=== PATIENT | female | born 1970 ===

== ENCOUNTER 2020-11-12 08:11 | Emergency (ER) | payer OTHER, SELFPAY ==
[2020-11-12 10:02] VITALS: BP 103/66; PULSE 72; RESP 14; TEMP 36.8; O2SAT 99; BMI 40.7
--- NOTE | 2020-11-12 10:39 | ED.GENADULT ---
HPI - General Adult General Chief complaint: Skin/Abscess/Foreign Body Stated complaint: cyst Time Seen by Provider: 11/12/20 10:11 Source: patient Mode of arrival: ambulatory Limitations: no limitations History of Present Illness HPI narrative: Vaginal lump x2 weeks, draining at home but increase in swelling. No fevers or chills. Related Data Previous Rx's Medication Instructions Recorded doxycycline monohydrate 100 mg PO BID #14 cap 11/12/20 Allergies Allergy/AdvReac Type Severity Reaction Status Date / Time oxycodone [From PERCOCET] Allergy Unknown NAUSEA, Unverified 05/22/20 15:28 DIZZINESS acetaminophen [Percocet] AdvReac Unknown agitation, Verified 12/06/17 00:00 hallucinations Review of Systems Review of Systems: Yes all other systems are reviewed and are negative Constitutional: Constitutional: Reports no additional constitutional complaints, Denies body ache(s), Denies chills, Denies fever(s), Denies headache(s) and Denies weakness Eyes: Eyes: Reports no additional eye complaints and Denies change in vision ENT: Reports system reviewed and no additional complaints, except as documented, Denies dizziness, Denies headache(s), Denies nasal congestion, Denies nasal discharge and Denies neck pain Cardiovascular: Cardiovascular: Reports no additional cardiovascular complaints, Denies chest pain, Denies leg edema and Denies dyspnea Respiratory: Respiratory: Reports no additional respiratory complaints, Denies cough and Denies dyspnea Gastrointestinal: Gastrointestinal: Reports no additional gastrointestinal complaints, Denies abdominal pain, Denies diarrhea, Denies nausea and Denies vomiting Genitourinary: Genitourinary: Reports no additional female genitourinary complaints and Denies urinary incontinence Musculoskeletal: Musculoskeletal: Reports no additional musculoskeletal complaints, Denies back pain, Denies arthralgias, Denies joint swelling, Denies neck pain, Denies numbness and Denies tingling Integumentary/Breasts: Skin/Breast: Reports system reviewed and no additional complaints, except as docu, Reports swelling, Reports erythema and Denies rash Neurologic: Reports system reviewed and no additional complaints, except as documented, Denies Abnormal speech present, Denies dizziness, Denies headache(s), Denies numbness, Denies tingling and Denies weakness PMF Past Medical History Attestation statement: The following information was validated with the patient. Source: old records reviewed and nursing notes reviewed Medical History COPD (chronic obstructive pulmonary disease) Surgical History Previous section Social History Social History Advance Directives: Yes Advance Directives Information Provided: Yes Advance Directives on File: No Physical Exam Vital Signs: Vital Signs: Last Vital Signs Temp 98.2 F 11/12/20 10:02 Pulse 72 11/12/20 10:02 Resp 14 11/12/20 10:02 BP 103/66 11/12/20 10:02 Pulse Ox 99 11/12/20 10:02 Body Mass Index 40.7 Const: General: cooperative, healthy appearing, comfortable and no acute distress Orientation/consciousness: patient oriented x3 Limitations: no limitations HENMT: Head: Yes normal to inspection Ears: hearing grossly normal bilaterally General nose exam: Normal external nose present Face and sinus: Yes normal facial exam Mouth: Normal oral and palatal mucosa present Throat: Yes posterior oropharynx normal Eyes: General: appearance normal, both eyes and all related structures Pupils: Equal, round and reactive pupils present Neck: Neck: Yes normal visual inspection Chest: Chest palpation & inspection: normal inspection of the chest Resp: Effort & Inspection: normal respiratory effort Auscultation: clear to auscultation bilaterally Cardio: Rate: regular rate Rhythm: regular rhythm Peripheral pulses: Peripheral pulses 2+ throughout GI: Inspection: Yes normal to inspection Palpation (GI): Soft to palpation and nontender Auscultation: normal bowel sounds : Other: To the left labia majora there is a moderate-sized abscess with erythema and induration. Back/Spine/Pelvis: Thoracic/Lumbar Spine: thoracic and lumbar spine normal to inspection Skin: General skin exam: no rashes or lesions noted Neuro: General: patient oriented x3, no focal motor deficits and normal sensation to monofilament Cranial nerves: Yes Equal, round and reactive pupils present Cognition (Neuro): normal cognition Speech: No Abnormal speech present Gait exam (Neuro): Normal gait present Motor exam (neuro): 5/5 motor strength present throughout Extrem: General: Yes normal to inspection Course Course Course Narrative: I and D done of left labial abscess. Mostly sanguinous drainage. Dressing placed. Will start patient on oral antibiotics. Reviewed worrisome signs and symptoms of when to return to the emergency department. Comfortable discharge home. Procedures Abscess I/D Site: other (Left labial) Side (if applicable): left Local Anesthetic: lidocaine 2% Technique: incised with blade Amount of fluid expressed (mL): 5 Discharge Plan Discharge Clinical Impression: Abscess of skin or subcutaneous tissue Patient Disposition: Home, Self-Care Instructions: Abscess (ED) Additional Instructions: Return for increasing redness, fever >100.4 Prescriptions: New doxycycline monohydrate 100 mg capsule 100 mg PO BID Qty: 14 RF: 0 Referrals: Bailey Harrington MD [Primary Care Provider] - 2 days Stand Alone Forms: Work/School Release Interventions: ED Discharge Assessment Last Done: 11/12/20 11:18 Discharge Date/Time: 11/12/20 11:19
[2020-11-12] MEDS: Lidocaine HCl 2 % MPF 5 ML VIAL SUBCUT (11:19)
== END 2020-11-12 11:19 | disposition home or self-care (01) ==
LOC: HO.ED 10:40
PROVIDERS: Emergency Provider Emergency Medicine Emergency Medical Services; PCP Internal Medicine
DX: N76.4 Abscess of vulva (principal)
CPT/HCPCS: 56405; 99283; 99284

== ENCOUNTER 2021-01-12 06:46 | Emergency (ER) | payer OTHER, SELFPAY ==
--- NOTE | ~2021-01-12 | XR_ITS ---
EXAMINATION: XR KNEE, RIGHT CLINICAL INFORMATION: Pain COMPARISON: None TECHNIQUE: Four views of the right knee. FINDINGS: Bones and soft tissues are normal. No fracture or joint effusion. Alignment is anatomic. Joint spaces are well maintained. No abnormal soft tissue calcification. XR/XR knee RT 4V IMPRESSION: Unremarkable right knee
--- NOTE | 2021-01-12 08:06 | ED.EXTPRO ---
HPI - Extremity Problem General Chief complaint: Extremity Injury, Lower Stated complaint: rt knee pain Time Seen by Provider: 01/12/21 07:11 Source: patient Mode of arrival: ambulatory Limitations: no limitations History of Present Illness MD Complaint: other (R knee injury felt it buckle and pop walking down the stairs) Onset (ago): minute(s) Pain Consistency: constant Location: right, lower extremity and knee Quality: aching and dull Radiation: none Relieving factors: nothing Exacerbating factors: range of motion and weight bearing Associated symptoms: denies other symptoms Related Data Previous Rx's Medication Instructions Recorded doxycycline monohydrate 100 mg PO BID #14 cap 11/12/20 cyclobenzaprine 10 mg PO TID PRN #14 tab 01/12/21 hydrocodone-acetaminophen 1 tab PO Q6H PRN #12 tab 01/12/21 ibuprofen 600 mg PO Q6H PRN #30 tab 01/12/21 ondansetron 4 mg PO Q8H PRN #20 tab 01/12/21 Allergies Allergy/AdvReac Type Severity Reaction Status Date / Time oxycodone [From PERCOCET] Allergy Unknown NAUSEA, Unverified 05/22/20 15:28 DIZZINESS acetaminophen [Percocet] AdvReac Unknown agitation, Verified 12/06/17 00:00 hallucinations Review of Systems Review of Systems: Constitutional : No Fever, No Chills ENT/Mouth : No Ear Pain, No Hoarseness, No sore throat Eyes: No Eye Pain, No Swelling, No Redness, No Foreign Body Cardiovascular : No Chest Pain, No SOB Respiratory : No Cough, No Dyspnea Gastrointestinal : No Nausea, No Vomiting, No Diarrhea, No abdominal Pain Genitourinary : No Dysuria, No Hematuria Musculoskeletal : positive joint pain, No Myalgias, No Joint Swelling Skin : No Skin lacerations, No rash Neuro : No Weakness, No Numbness, No Loss of Consciousness, No Dizziness, No Headache PMFSH Past Medical History Attestation statement: The following information was validated with the patient. Medical History COPD (chronic obstructive pulmonary disease) Surgical History Previous section Social History Social History (Updated 01/12/21 @ 08:21 by Chapis Kirk DO) Alcohol intake: never Smoking Status: Current every day smoker Use of substances other than those prescribed or required for medical reasons: No Advance Directives: No Advance Directives Information Provided: No Patient : No Physical Exam Vital Signs: Vital Signs: Last Vital Signs Temp 98.6 F 01/12/21 08:07 Pulse 77 01/12/21 08:07 Resp 16 01/12/21 08:07 BP 102/52 L 01/12/21 08:07 Pulse Ox 99 01/12/21 08:07 Body Mass Index 39.4 Appearance: Alert. Oriented X3. No acute distress. Eyes: Pupils equal, round and reactive to light. ENT: Pharynx normal. Neck: Normal inspection. Neck supple. CVS: Normal heart rate and rhythm. Pulses normal. Respiratory: No respiratory distress. Breath sounds normal. Abdomen: Soft and nontender. Skin: Skin warm and dry. Normal skin color. Normal skin turgor. Extremities: No lower extremity edema. No calf ttp R knee ttp small joint effusion on lateral joint line, will not allow range of motion testing, distal NV intact, no hip or ankle pain Neuro: Oriented X 3. No motor deficit. No sensory deficit. Procedures Orthopedic Splinting/Casting Injury #1: Side: right Lower Extremity Injury Location: knee Lower Extremity Immobilizer: knee immobilizer Other Orthopedic Equipment: crutches MDM - Extremity (Nontraumatic) MDM Narrative Medical decision making narrative: 50 yo female with COPD comes in with c/o R knee pain after it buckling - NV intact, felt it pop likely internal injury, xrays negative, place in immobilizer and refer to PCP. Discharge Plan Discharge Clinical Impression: Knee sprain Qualifiers: Encounter type: initial encounter Involved ligament of knee: unspecified ligament Laterality: right Qualified Code(s): S83.91XA - Sprain of unspecified site of right knee, initial encounter Patient Disposition: Home, Self-Care Instructions: Knee Sprain (ED), Knee Immobilizer (ED) Additional Instructions: return to ED for any worsening symptoms or concerns wear immoblizer until released Prescriptions: New cyclobenzaprine 10 mg tablet 10 mg PO TID PRN (Reason: muscle spasm) Qty: 14 RF: 0 hydrocodone-acetaminophen 5-325 mg tablet 1 tab PO Q6H PRN (Reason: pain) Qty: 12 RF: 0 ibuprofen 600 mg tablet 600 mg PO Q6H PRN (Reason: pain) Qty: 30 RF: 0 ondansetron 4 mg tablet,disintegrating 4 mg PO Q8H PRN (Reason: nausea and vomiting) Qty: 20 RF: 0 No Action doxycycline monohydrate 100 mg capsule 100 mg PO BID Qty: 14 RF: 0 Referrals: aBiley Harrington MD [Primary Care Provider] - 2 days (PCP call for outpatient MRI and PT) Stand Alone Forms: Work/School Release
[2021-01-12 08:07] VITALS: BP 102/52; PULSE 77; RESP 16; TEMP 37; O2SAT 99; BMI 39.4
--- NOTE | 2021-01-12 08:32 | PC.NURSE ---
immobilizer and crutches fit and applied. pt educated on both. teach back shown by pt.
[2021-01-12] MEDS: Ibuprofen 600 MG TABLET PO (08:39)
[2021-01-12] MEDS: Cyclobenzaprine HCl 10 MG TABLET PO (08:39)
--- NOTE | 2021-01-12 08:40 | PC.NURSE ---
pt medicated per emar- awaiting dc
== END 2021-01-12 08:47 | disposition home or self-care (01) ==
PROVIDERS: Emergency Provider Emergency Medicine; PCP Internal Medicine
DX: S83.91XA Sprain of unspecified site of right knee, initial encounter (principal); M25.561 Pain in right knee; X50.1XXA Overexertion from prolonged static or awkward postures, initial encounter; Y93.9 Activity, unspecified; Y92.009 Unspecified place in unspecified non-institutional (private) residence as the place of occurrence of the external cause; Y99.9 Unspecified external cause status; F17.200 Nicotine dependence, unspecified, uncomplicated; Z71.6 Tobacco abuse counseling; Z79.899 Other long term (current) drug therapy
CPT/HCPCS: 29505; 73564; 99284

== ENCOUNTER 2021-01-23 19:31 | Outpatient (REF) | payer OTHER, SELFPAY ==
--- NOTE | ~2021-01-23 | MR_ITS ---
EXAMINATION: MR KNEE WITHOUT CONTRAST, RIGHT CLINICAL INFORMATION: Pain and shakiness of the right leg and knee. COMPARISON: None TECHNIQUE: MRI of the knee without contrast was performed using routine sequences on a high-field scanner. FINDINGS: MENISCI: Medial Meniscus: The posterior horn is avulsed at the root insertion with an associated gap of 7 mm. There is a small flap component along the free edge which extends anteriorly by 7 mm. There is a small horizontal undersurface component of the tear at the junction of the posterior horn and body. Degenerative intrasubstance signal is present within the medial meniscus. Lateral Meniscus: Degenerative intrasubstance signal is present in the anterior and posterior root insertions. No discrete tears. LIGAMENTS: Cruciate: Intact. Collateral: Edema signal around the MCL is likely reactive to the underlying meniscal abnormality. Collateral ligaments are intact. EXTENSOR MECHANISM: Intact. ARTICULAR CARTILAGE/BONE: Patellofemoral Compartment: There is moderate nonuniform articular cartilage loss at the patella with full-thickness chondral fissuring, subchondral edema, subchondral cystic change, and marginal osteophytes. There is moderate nonuniform articular cartilage loss at the medial trochlear facet over an area measuring 1.5 x 1.4 cm with full-thickness chondral fissuring, cortical irregularity, and subcortical cystic change. Medial Compartment: Small marginal osteophytes are present at the medial compartment. Chondral fissuring and partial-thickness cartilage loss are present at the far lateral margin of the medial femoral condyle weightbearing surface. Lateral Compartment: There is mild chondral thinning and surface irregularity at the medial aspect of the lateral weightbearing surfaces. Small marginal osteophytes. JOINT FLUID AND BURSAE: Moderate-sized joint effusion. Small Shelton's cyst. MR/MR knee RT wo con IMPRESSION: 1. Posterior root avulsion of the medial meniscus with partial extrusion of the meniscal body. Small horizontal undersurface tear at the junction of the posterior horn and body. No subchondral insufficiency fractures. 2. Gxyr-[id number] patellofemoral compartment osteoarthritis. More mild osteoarthritis in the medial and lateral compartments. 3. Moderate-sized joint effusion and small Shelton's cyst. 4. Degenerative intrasubstance signal in the lateral meniscus without a discrete tear.
== END 2021-01-23 19:32 | disposition home or self-care (01) ==
LOC: HO.MRI 19:31
PROVIDERS: Visit Provider Internal Medicine
DX: S83.206A Unspecified tear of unspecified meniscus, current injury, right knee, initial encounter (principal)
CPT/HCPCS: 73721

== ENCOUNTER → 2021-02-04 13:39 | Outpatient (BNVA) | payer OTHER, SELFPAY | PROVIDERS: PCP Internal Medicine; Visit Provider Physician Assistant | DX: M23.309 Other meniscus derangements, unspecified meniscus, unspecified knee (principal); M17.11 Unilateral primary osteoarthritis, right knee | CPT/HCPCS: 99202 ==

== ENCOUNTER 2022-02-16 10:01 | Emergency (ER) | payer OTHER, SELFPAY ==
[2022-02-16 10:18] VITALS: BP 112/80; PULSE 76; RESP 16; TEMP 37.1; O2SAT 98; BMI 42.0
--- NOTE | 2022-02-16 10:44 | ED_ITS ---
HPI - URI/Sore Throat General Chief Complaint: Upper Respiratory Symptoms Stated Complaint: sore throat , pain in ears, light fever Time Seen by Provider: 02/16/22 10:40 Source: patient Mode of arrival: ambulatory Limitations: language barrier ( Bruneian-speaking) History of Present Illness HPI Narrative: 51-year-old female with a past medical history of COPD and COVID in the past presenting to the ED with complaints of nasal congestion/ rhinorrhea with a sore throat and ear pain with intermittent headaches with subjective fevers with associated chills, myalgias and fatigue for the past 4 days worse today. R eports on Tuesday she took at home COVID testing was negative. She denies recent travel. She reports that multiple coworkers have similar symptoms at work although she is unsure if there are positive for COVID Or the flu. She reports that she is vaccinated to COVID. She denies any measured fevers, dizziness, neck pain / stiffness, trouble swallowing or breathing, chest pain or shortness of breath, loss of taste or smell, sputum production, cough, nausea/ vomiting / diarrhea constipation, abdominal pain, dysuria, abnormal vaginal discharge, rashes or any other symptoms complaints or concerns at this time. MD elicited complaint: sore throat, rhinorrhea, nasal congestion and other ( Ear pain) Onset (ago): day(s) (4) Consistency: constant and progressively worsening Severity: mild Description of mucous: clear and watery Able to tolerate fluids by mouth: Yes Exacerbating factors: swallowing Relieving factors: nothing Context: sick contacts and other(s) with similar symptoms Associated symptoms: fever, chills, myalgias, headache, rhinorrhea, nasal congestion, sore throat and ear pain Treatments prior to arrival: none Related Data Previous Rx's Medication Instructions Recorded doxycycline monohydrate 100 mg 100 mg PO BID #14 caps 11/12/20 capsule ondansetron 4 mg disintegrating 4 mg PO Q8H PRN nausea and 01/12/21 tablet vomiting #20 tabs cyclobenzaprine 10 mg tablet 10 mg PO TID PRN muscle spasm #14 01/21/21 tabs hydrocodone 5 mg-acetaminophen 325 1 tab PO Q6H PRN pain #12 tabs 01/21/21 mg tablet ibuprofen 600 mg tablet 600 mg PO Q6H PRN pain #30 tabs 01/21/21 celecoxib 200 mg capsule 200 mg PO BID 1 month #60 caps 06/02/21 Allergies Allergy/AdvReac Type Severity Reaction Status Date / Time oxycodone [From PERCOCET] Allergy Unknown NAUSEA, Verified 02/04/21 14:07 DIZZINESS acetaminophen [Percocet] AdvReac Unknown agitation, Verified 02/04/21 14:07 hallucinations Review of Systems Review of Systems: Constitutional : + subjective fevers/ chills /fatigue/malaise, No Weight loss, No Night Sweats ENT/Mouth : + sore throat/ear pain /nasal congestion/rhinorrhea, No Hearing loss, No Sinus Pain, No Hoarseness, No Swallowing Difficulty Eyes: No Eye Pain, No Swelling, No Redness, No Foreign Body, No Discharge, No Vision Changes Cardiovascular : No Chest Pain, No SOB, No Dyspnea on Exertion, No Orthopnea, No Edema, No Palpitations Respiratory : No Cough, No Sputum, No Wheezing, No Smoke Exposure, No Dyspnea Gastrointestinal : No Nausea, No Vomiting, No Diarrhea, No Constipation, No abdominal Pain, No Hematochezia, No Melena Genitourinary : no irregular bleeding, No Dysuria, No Urinary Frequency, No Hematuria, No Urinary Incontinence, No Urgency, No Flank Pain, No Urinary Flow Changes, No Hesitancy Musculoskeletal : No joint pain, No Myalgias, No Joint Swelling Skin : No Skin Lesions, No rash Neuro : No Weakness, No Numbness, No Paresthesias, No Loss of Consciousness, No Dizziness, No Headache Psych : No Anxiety/Panic, No Depression, No SI/HI/AH/VH, No Social Issues, Heme/Lymph: No Bruising, No Bleeding,No Lymphadenopathy Endocrine : No Polyuria, No Polydipsia, No Temperature Intolerance Yes all other systems are reviewed and are negative [facility] Past Medical History Attestation statement: The following information was validated with the patient. Source: old records reviewed and nursing notes reviewed Surgical History Previous section Family History Family History Mother Arteriosclerosis of bypass graft of coronary artery Alzheimer disease Father No problems noted. Social History Social History Alcohol intake: never Cigarettes Per Day: 7 Advance Directives: No Advance Directives Information Provided: Yes Advance Directives on File: No Current occupational status: employed Current occupation: right handed Physical Exam Vital Signs: Vital Signs: Last Vital Signs Temp 98.8 F 02/16/22 10:18 Pulse 76 02/16/22 10:18 Resp 16 02/16/22 10:18 BP 112/80 02/16/22 10:18 Pulse Ox 98 02/16/22 10:18 O2 Del Method 02/16/22 10:18 BMI result Body Mass Index 42.0 vital signs have been reviewed as normal and appeared to be correct. Blood pressure normal. Heart rate normal. Respiration rate normal. Temperature normal. Oxygen saturation normal. Appearance: Alert. Oriented X3. No acute distress. Head: Normal external exam. Normocephalic. Atraumatic. Eyes: PERRLA. EOMI. Conjunctiva and sclera normal. Eyelids normal. ENT: EAC normal. TM's Normal. Pharynx normal. Uvula midline. Moist mucous membranes. No lesions/ulcerations or masses noted on the tongue. Normal voice. No trismus noted. No drooling noted. No muffled voice noted. Neck: Normal inspection. Neck supple. FROM. No adenopathy. Thyroid Normal. No tracheal deviation noted. No crepitus is noted. No meningeal signs. No neck mass noted. No signs of trauma noted. CVS: Normal heart rate and rhythm. Heart sound normal. Pulses normal throughout. No murmurs/rales/gallops. Respiratory: No respiratory distress. Painless inspiration. Breath sounds normal. No wheezes/rales/rhonchi noted. Chest nontender. No crepitus is noted. No signs of trauma noted. No accessory muscle usage noted or decreased air movement noted. No signs of trauma. Abdomen: Soft and nontender. Bowel sounds normal in all 4 quadrants. No distention noted. No organomegaly noted. No visible injury noted. Back: Full range of motion noted. Skin: Skin warm and dry. Normal skin color. Normal skin turgor. No rashes/lesions/lacerations noted. Extremities: Extremities exhibit normal range of motion and nontender. Neuro: Oriented X 3. No motor deficit. No sensory deficit. Reflexes normal. Normal steady gait. No focal neuro deficits noted. CN's II-XII intact bilaterally? Vascular: + radial pulses/+ 2 distal pedal pulses/+2 dorsalis pedis b/l. Normal cap refill. No cyanosis noted to upper extremity nails and lower extremity toes nails. Course Course Course Narrative: 51-year-old female with a past medical history of COPD and COVID in the past presenting to the ED with complaints of nasal congestion/ rhinorrhea with a sore throat and ear pain with intermittent headaches with subjective fevers with associated chills, myalgias and fatigue for the past 4 days worse today. Reports on Tuesday she took at home COVID testing was negative. She denies recent travel. She reports that multiple coworkers have similar symptoms at work although she is unsure if there are positive for COVID Or the flu. patient negative for COVID/ influenza and strep. Patient most likely viral syndrome. Will DC home with symptomatic treatment instructions return if any new or worsening symptoms follow up with primary care provider. Patient understands agrees with this plan. MDM - URI/Sore Throat Medical Records Attestation: I reviewed the patient's medical records. Lab Data Attestation: I reviewed the patient's lab results. Labs: Lab Results 02/16/22 02/16/22 02/16/22 Range/Units 10:29 10:29 10:29 COVID-19 (MAGALIE) Negative (Negative) COVID-19 Clin Com See Note Influenza Type A (ALEJANDRA) Negative (Negative) Influenza Type B (ALEJANDRA) Negative (Negative) Influenza A & B Note See Note S. pyogenes GrpA ALEJANDRA Negative (Negative) Discharge Plan Discharge Clinical Impression: Viral infection Patient Disposition: Home, Self-Care Instructions: Viral Syndrome (ED) Prescriptions: No Action celecoxib 200 mg capsule 200 mg PO BID 30 Days Qty: 60 3RF doxycycline monohydrate 100 mg capsule 100 mg PO BID Qty: 14 0RF ondansetron 4 mg tablet,disintegrating 4 mg PO Q8H PRN (Reason: nausea and vomiting) Qty: 20 0RF cyclobenzaprine 10 mg tablet 10 mg PO TID PRN (Reason: muscle spasm) Qty: 14 0RF ibuprofen 600 mg tablet 600 mg PO Q6H PRN (Reason: pain) Qty: 30 0RF hydrocodone-acetaminophen 5-325 mg tablet 1 tab PO Q6H PRN (Reason: pain) Qty: 12 0RF Referrals: [place] Venancio,Jeana, MD [Primary Care Provider] - 2 days Print Language: Bruneian
[2022-02-16 10:57] LABS: Strep A Nucleic Acid Negative (Negative)
[2022-02-16 10:59] LABS: COVID-19 Test Negative (Negative); IDNOW Serial# 16C4AD1C; Influenza A Negative (Negative); Influenza B2 Negative (Negative)
== END 2022-02-16 11:06 | disposition home or self-care (01) ==
PROVIDERS: Physician Assistant Medical; Emergency Provider Emergency Medicine; PCP Internal Medicine
DX: B34.9 Viral infection, unspecified (principal); Z20.822 Contact with and (suspected) exposure to COVID-19; J02.9 Acute pharyngitis, unspecified
CPT/HCPCS: 87502; 87635; 87651; 99283

== ENCOUNTER 2022-10-19 11:04 | Outpatient (REF) | payer OTHER, SELFPAY ==
--- NOTE | ~2022-10-19 | US_ITS ---
EXAMINATION: US PELVIS CLINICAL INFORMATION: Bilateral pelvic pain for three weeks. Rule out mass/fibroids. COMPARISON: None TECHNIQUE: Ultrasound of the pelvis is performed using both transabdominal and transvaginal transducers along with Doppler. Transvaginal imaging is performed due to inadequate visualization transabdominally. FINDINGS: UTERUS: The uterus is anteverted and measures 10.9 x 4.5 x 4.9 cm. The double wall endometrial thickness is 10 mm. The uterus is smooth in contour and has normal myometrial echogenicity. No visible fibroid. Nabothian cysts are present in the cervix. ADNEXA: Both ovaries are visualized. There is normal color flow to the adnexa. There is no ovarian torsion. There is no pelvic ascites or fluid collection. Right ovary measures 1.6 x 1.1 x 1.6 cm for a volume of 1.5 mL. Left ovary measures 1.5 x 1.0 x 1.3 cm for a volume of 1.06 mL. US/US pelvic and transvaginal IMPRESSION: Negative exam.
--- NOTE | ~2022-10-19 | MM_ITS ---
EXAMINATION: MM SCREENING DIGITAL BREAST TOMOSYNTHESIS, BILATERAL CLINICAL INFORMATION: Screening. Asymptomatic. The lifetime risk of breast cancer based on the Tyrer-Cuzick Model is 7%. COMPARISON: Mammography: 06/07/2014 (baseline) TECHNIQUE: Digital breast tomosynthesis is performed in both the craniocaudal and mediolateral oblique views along with computer-aided detection (CAD). Synthesized 2D images are generated from the tomosynthesis. FINDINGS: There are scattered areas of fibroglandular density (ACR BI-RADS breast composition Category b). There are no significant masses, abnormal calcifications, or other abnormalities. No architectural abnormality or developing density or significant change from prior baseline exam. The axilla and skin contours are unremarkable. MM/MM tomosynthesis screening BI IMPRESSION: No mammographic evidence of malignancy. ASSESSMENT: BI-RADS 1: Negative RECOMMENDATION: Routine annual mammography screening. This patient's information was entered into a reminder system with a target due date for their next mammogram.
[2022-10-19 13:29] LABS: Lipase 11 U/L (8-78)
[2022-10-19 14:05] LABS: Folate 9.3 ng/mL (> or = 4.0); TSH reflex Free T4 1.81 uIU/mL (0.32-4.0); Vitamin B12 336 pg/mL (200-900)
[2022-10-19 14:07] LABS: Estimated Average Glucose 94 mg/dL; Hemoglobin A1c % 4.9 %
[2022-10-22 07:53] LABS: Transglutaminase Ab IgG <1.0 U/mL; Transglutaminase IgA <1.0 U/mL
== END 2022-10-19 11:05 | disposition home or self-care (01) ==
LOC: HO.US 11:04
PROVIDERS: Absent Provider Nurse Practitioner Family; PCP General Practice; Visit Provider General Practice
DX: Z01.818 Encounter for other preprocedural examination (principal); R10.2 Pelvic and perineal pain; K64.9 Unspecified hemorrhoids; R19.7 Diarrhea, unspecified; E11.9 Type 2 diabetes mellitus without complications; K59.04 Chronic idiopathic constipation; Z12.31 Encounter for screening mammogram for malignant neoplasm of breast
CPT/HCPCS: 36415; 76830; 76856; 77063; 77067; 82607; 82746; 83036; 83690; 84443; 86364; 99202

== ENCOUNTER → 2023-01-18 09:41 | Outpatient (BNVA) | payer OTHER, SELFPAY | PROVIDERS: PCP General Practice; Referring Provider General Practice; Visit Provider Nurse Practitioner Family | DX: K59.04 Chronic idiopathic constipation (principal); K64.9 Unspecified hemorrhoids | CPT/HCPCS: 99212 ==

== ENCOUNTER 2023-02-26 21:24 | Emergency (ER) | payer OTHER, SELFPAY ==
--- NOTE | ~2023-02-26 | CT_ITS ---
EXAMINATION: CT ABDOMEN AND PELVIS WITH CONTRAST CLINICAL INFORMATION: Left-sided abdominal pain COMPARISON: None available. TECHNIQUE: Multidetector volumetric images were obtained from the superior aspect of the liver through the pubic symphysis following administration 85 mL of Omnipaque 350 intravenous contrast. Sagittal and coronal reformatted images were obtained on the technologist's workstation. Oral contrast: No This CT examination was performed using dose optimization techniques as appropriate, variously including the following: *Automated exposure control *Adjustment of mA and/or kV according to patient size (this includes techniques or standardized protocols for targeted exams where dose is matched to indication/reason for exam; i.e. extremities or head) *Use of iterative reconstruction technique DLP: 723 mGy-cm FINDINGS: LUNG BASES: The visualized lung bases are unremarkable. LIVER, GALLBLADDER, AND BILIARY TREE: The liver is normal in size, shape, and attenuation. No focal hepatic lesion or biliary ductal dilatation is present. The gallbladder is unremarkable with no evidence of radiopaque gallstones, gallbladder wall thickening, or obvious pericholecystic inflammatory changes. PANCREAS: Unremarkable. SPLEEN: Unremarkable. ADRENAL GLANDS: Unremarkable. KIDNEYS AND URETERS: The kidneys are normal in size, shape, and attenuation. No hydronephrosis, hydroureter, or calculi seen. No perinephric stranding. BLADDER: Unremarkable. GASTROINTESTINAL TRACT: There are several dilated small bowel loops in left midabdomen without any mural thickening. There is small bowel feces sign present in some of the segments of small bowel. Mild dilatation of the proximal duodenum is noted as well. There is a mural thickening involving small bowel loops. There is a transition noted on axial image 32/3 through 45/3. The stomach is nondilated. The ileal loops appear normal caliber. There is scattered colonic diverticulosis, most prominent sigmoid region without mural thickening or fat stranding. Appendix is normal caliber. No inflammatory process seen in the peritoneum. No free fluid. ABDOMINAL WALL: Small lumbar canal hernia containing fat. LYMPH NODES: Normal. VASCULAR: Unremarkable. PELVIC VISCERA: The uterus is anteverted and unremarkable. No adnexal mass or free fluid. OSSEOUS STRUCTURES: Mild ventral spondylosis lower dorsal and upper lumbar spine. Small sclerotic lesion L5 L2 and L1 vertebra. CT/CT abdomen pelvis w IV con IMPRESSION: Multiple dilated proximal small bowel loops in left midabdomen with mural thickening suggestive of an tendinitis. Rest of the small bowel loops and stomach is unremarkable Colonic diverticulosis without diverticulitis. Fleischner guidelines were followed.
[2023-02-26 21:32] VITALS: BP 101/64; PULSE 94; RESP 18; TEMP 36.2; O2SAT 96; BMI 41.0
[2023-02-26 21:45] LABS: MANUAL DIFF FLAG NO
[2023-02-26 22:00] LABS: Basophils Absolute Auto 0.1 X10*3/uL (0.0-0.2); Basophils Percent Auto 0.7 % (0-2); Eosinophils Absolute Auto 0.2 X10*3/uL (0.0-0.4); Eosinophils Percent Auto 1.5 % (0-4); Hematocrit 44.9 % (37.0-47.0); Hemoglobin 15.3 g/dl (12.0-16.0); Imm Gran Abs Auto 0.02 X10*3/uL (0.00-0.03); Imm Gran Pct Auto 0.2 % (0.0-0.4); Lymphocytes Absolute Auto 3.3 X10*3/uL (1.2-4.9); Lymphocytes Percent Auto 33.8 % (20-40); Mean Corpuscular HGB Conc 34.1 g/dl (31.0-35.0); Mean Corpuscular Hemoglobin 29.1 pg (27.0-33.0); Mean Corpuscular Volume 85.4 fL (80.0-98.0); Mean Platelet Volume 12.5 fL (9.4-12.3); Monocytes Absolute Auto 0.5 X10*3/uL (0.1-1.2); Monocytes Percent Auto 4.8 % (2-11); Neutrophils Absolute Auto 5.8 x10*3/uL (2.0-8.3); Platelet Count 222 X10*3/uL (160-400); Red Blood Count 5.26 X10*6/uL (4.20-5.50); White Blood Count 9.8 X10*3/uL (4.8-10.8)
[2023-02-26 22:02] LABS: Alanine Aminotransferase 17 U/L (0-31); Albumin Level 3.9 g/dL (3.5-5.0); Alkaline Phosphatase 89 U/L (39-117); Anion Gap 13 (12-20); Aspartate Amino Transferase 17 U/L (5-31); Bilirubin Total 0.5 mg/dL (0.0-1.0); Blood Urea Nitrogen 11 mg/dL (9-16); Calcium 9.5 mg/dL (8.4-10.2); Carbon Dioxide 24 mmol/L (22-29); Chloride 111 mmol/L (96-108); Creatinine Clr Calc Pharmacy 81.3; Estimated Glomerular Filt Rate > 60; Glucose Random 102 mg/dL (60-115); Lipase 13 U/L (8-78); Potassium 3.8 mmol/L (3.3-5.1); Sodium 144 mmol/L (135-145); Total Protein 7.1 g/dL (6.5-8.0)
--- NOTE | 2023-02-27 00:35 | ED_ITS ---
HPI - Abdominal Pain General Chief Complaint: Abdominal Pain Stated Complaint: abd pain Time Seen by Provider: 02/26/23 23:59 Related Data Previous Rx's Medication Instructions Recorded doxycycline monohydrate 100 mg 100 mg PO BID #14 caps 11/12/20 capsule ondansetron 4 mg disintegrating 4 mg PO Q8H PRN nausea and 01/12/21 tablet vomiting #20 tabs cyclobenzaprine 10 mg tablet 10 mg PO TID PRN muscle spasm #14 01/21/21 tabs hydrocodone 5 mg-acetaminophen 325 1 tab PO Q6H PRN pain #12 tabs 01/21/21 mg tablet ibuprofen 600 mg tablet 600 mg PO Q6H PRN pain #30 tabs 01/21/21 celecoxib 200 mg capsule 200 mg PO BID 1 month #60 caps 06/02/21 docusate sodium 100 mg capsule 100 mg PO BEDTIME #90 caps 10/19/22 polyethylene glycol 3350 17 17 g PO DAILY #510 grams 10/19/22 gram/dose oral powder (Miralax) hydrocortisone 2.5 % topical cream 1 appl SD BID-QID PRN hemorrhoids 01/18/23 with perineal applicator #30 grams (Proctosol HC) linaclotide 145 mcg capsule 145 mcg PO DAILY #30 caps 01/18/23 (Linzess) ondansetron 4 mg disintegrating 4 mg PO TID PRN nausea and 02/27/23 tablet vomiting 5 days #10 tabs Allergies Allergy/AdvReac Type Severity Reaction Status Date / Time oxycodone [From PERCOCET] Allergy Unknown NAUSEA, Verified 02/26/23 21:32 DIZZINESS acetaminophen [Percocet] AdvReac Unknown agitation, Verified 02/26/23 21:32 hallucinations PMFSH Past Medical History Surgical History Previous section Family History Family History Mother Arteriosclerosis of bypass graft of coronary artery Alzheimer disease Father No problems noted. Social History Social History Alcohol intake: never Cigarettes Per Day: 7 Advance Directives: No Advance Directives Information Provided: Yes Current occupational status: employed Current occupation: right handed Physical Exam ED Vital Signs: Vital Signs - 24 hr 02/26/23 21:32 Temperature 97.1 F Pulse Rate 94 Respiratory Rate 18 Blood Pressure 101/64 Pulse Oximetry 96 Oxygen Delivery Method Room Air BMI result Body Mass Index 41.0 Medical Decision Making Medical Decision Making [facility] Narrative: Positive nausea vomiting abdominal pain. CT scan of the abdomen showed no obstruction no abscess no perforation. Consistent with having enteritis. St gatitod patient on IV fluid Zofran for nausea with good relief of symptoms. Patient's white count is normal. LFTs normal. Lipase is 13 is no evidence for pancreatic disease no evidence for biliary disease. Will discharge patient home. Zofran Differential Diagnosis Gastroenteritis, obstruction, abscess, perforation, biliary issues, kidney stone Lab Data [facility] Lab Attestation statement: I reviewed the patient's lab results. 02/26/23 21:41 02/26/23 21:41 Labs: Lab Results 02/26/23 02/26/23 Range/Units 21:41 21:41 WBC 9.8 (4.8-10.8) X10*3/uL RBC 5.26 (4.20-5.50) X10*6/uL Hgb 15.3 (12.0-16.0) g/dl Hct 44.9 (37.0-47.0) % MCV 85.4 (80.0-98.0) fL MCH 29.1 (27.0-33.0) pg MCHC 34.1 (31.0-35.0) g/dl RDW 14.0 (11.0-16.0) % Plt Count 222 (160-400) X10*3/uL MPV 12.5 H (9.4-12.3) fL Immature Gran % (Auto) 0.2 (0.0-0.4) % Neut % (Auto) 59.0 (45-73) % Lymph % (Auto) 33.8 (20-40) % [place] % (Auto) 4.8 (2-11) % Eos % (Auto) 1.5 (0-4) % Baso % (Auto) 0.7 (0-2) % Lymph # (Auto) 3.3 (1.2-4.9) X10*3/uL [place] # (Auto) 0.5 (0.1-1.2) X10*3/uL Eos # (Auto) 0.2 (0.0-0.4) X10*3/uL Baso # (Auto) 0.1 (0.0-0.2) X10*3/uL Abs Immat Gran (auto) 0.02 (0.00-0.03) X10*3/uL Absolute Neuts (auto) 5.8 (2.0-8.3) x10*3/uL Absolute Nucleated RBC 0.000 (0.0-0.012) X10*3/uL Nucleated RBC % (auto) 0.0 (0.0-0.2) /100WBC Sodium 144 (135-145) mmol/L Potassium 3.8 (3.3-5.1) mmol/L Chloride 111 H (96-108) mmol/L Carbon Dioxide 24 (22-29) mmol/L Anion Gap 13 (12-20) BUN 11 (9-16) mg/dL Creatinine 0.82 (0.5-1.4) mg/dL Estim Creat Clear Calc 81.3 Estimated GFR > 60 Random Glucose 102 (60-115) mg/dL Calcium 9.5 (8.4-10.2) mg/dL Total Bilirubin 0.5 (0.0-1.0) mg/dL AST 17 (5-31) U/L ALT 17 (0-31) U/L Alkaline Phosphatase 89 (39-117) U/L Total Protein 7.1 (6.5-8.0) g/dL Albumin 3.9 (3.5-5.0) g/dL Lipase 13 (8-78) U/L Independent Interpretation I performed an independent interpretation of an: CT Scan Interpretation: Grossly no obstruction Radiology Impression Discussion of test interpretation with radiology: I have reviewed the radiologist's reading. Independent Historian Clinical information obtained from an independent historian. History obtained from or confirmed by: Spouse Medications Administered Discontinued Medications Generic Name Dose Route Start Last Admin Trade Name Freq PRN Reason Stop Dose Admin Hydromorphone HCl 0.5 mg 02/27/23 00:35 02/27/23 00:58 Hydromorphone Hcl 0.5 Mg/0.5 Ml Syringe IVPUSH 02/27/23 00:36 0.5 mg ONCE ONE Administration Protocol Sodium Chloride 1,000 mls @ 999 mls/hr 02/27/23 00:45 02/27/23 00:58 Ns IV 02/27/23 01:45 999 mls/hr .Q1H1M MIRI Administration Ondansetron HCl 4 mg 02/27/23 00:35 02/27/23 00:59 Ondansetron Hcl 4 Mg/2 Ml Vial IVPUSH 02/27/23 00:36 4 mg ONCE ONE Administration Discharge Plan Discharge Clinical Impression: Gastroenteritis Patient Disposition: Home, Self-Care Instructions: Enteritis (ED) Prescriptions: New ondansetron 4 mg tablet,disintegrating 4 mg PO TID PRN (Reason: nausea and vomiting) 5 Days Qty: 10 0RF No Action celecoxib 200 mg capsule 200 mg PO BID 30 Days Qty: 60 3RF doxycycline monohydrate 100 mg capsule 100 mg PO BID Qty: 14 0RF ondansetron 4 mg tablet,disintegrating 4 mg PO Q8H PRN (Reason: nausea and vomiting) Qty: 20 0RF cyclobenzaprine 10 mg tablet 10 mg PO TID PRN (Reason: muscle spasm) Qty: 14 0RF ibuprofen 600 mg tablet 600 mg PO Q6H PRN (Reason: pain) Qty: 30 0RF hydrocodone-acetaminophen 5-325 mg tablet 1 tab PO Q6H PRN (Reason: pain) Qty: 12 0RF polyethylene glycol 3350 [Miralax] 17 gram/dose powder 17 g PO DAILY Qty: 510 2RF docusate sodium 100 mg capsule 100 mg PO BEDTIME Qty: 90 3RF hydrocortisone [Proctosol HC] 2.5 % cream with perineal applicator 1 appl SD BID-QID PRN (Reason: hemorrhoids) Qty: 30 2RF Linzess 145 mcg capsule 145 mcg PO DAILY Qty: 30 4RF Referrals: Jennifer Mcconnell MD [Primary Care Provider] - 03/01/23
[2023-02-27] MEDS: HYDROmorphone HCl 0.5 MG/0.5 ML SYRINGE IVPUSH (00:58)
[2023-02-27] MEDS: 0.9 % Sodium Chloride 1,000 ML 999 ML IV (00:58)
[2023-02-27] MEDS: ondansetron HCL 4 MG/2 ML VIAL IVPUSH (00:59)
== END 2023-02-27 03:45 | disposition home or self-care (01) ==
PROVIDERS: Emergency Provider Emergency Medicine Emergency Medical Services; PCP General Practice
DX: K52.9 Noninfective gastroenteritis and colitis, unspecified (principal); F17.210 Nicotine dependence, cigarettes, uncomplicated
CPT/HCPCS: 36415; 74177; 80053; 83690; 85025; 96361; 96374; 96375; 99284; J1170; J2405

== ENCOUNTER 2023-03-02 07:59 | Outpatient (AMB) | payer OTHER, SELFPAY ==
--- NOTE | 2023-03-02 08:03 | A.OFFVIS_ITS ---
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 Patient still is not able to move her bowels. Patient will be coming back to discuss colonoscopy. We will schedule procedure and have patient return to me to she is able to move her bowels Hemorrhoid Patient comes occasional to pain when constipated. With almost every bowel movement. Patient can continue using Proctosol twice a day. I will have her return in 6 weeks, sooner on as needed basis. Patient is agreeable to this plan and verbalizes understanding of instructions. She was given the opportunity to ask questions and all questions answered. ? Thank you for allowing me to participate in her care Plan Medications New linaclotide (Linzess) 145 mcg PO DAILY 30 caps 4RF K59.04 Refilled hydrocortisone 2.5% (Proctosol HC) 1 appl [place] BID-QID PRN 30 grams 2RF hemorrhoids K64.9 TODAY'S VISIT Patient is here today for follow-up and to discuss going for colonoscopy. Patient reports that she continues to have postprandial dyspepsia without dysphagia or odynophagia. Patient also reports epigastric discomfort after eating. Patient denies any nausea or vomiting. Reports that she continues to be constipated and does not empty her bowels completely. Patient denies melena, hematochezia, unintentional weight loss or ribbon like stools. Patient denies any issues with anesthesia in the past. No history of sleep apnea. Patient is not on any anticoagulation medication. No history of infectious diseases in the past or present. Patient reports occasional dyspepsia and epigastric pain also left upper quadrant pain postprandially. Discussed with patient avoiding NSAIDs like ibuprofen. She is also taking Celebrex for knee pain. CT scan results discussed with patient. [facility] Surgical History Previous section Family History Mother Arteriosclerosis of bypass graft of coronary artery Alzheimer disease Father No problems noted. Social History Alcohol intake: never Cigarettes Per Day: 7 Current occupational status: employed Current occupation: right handed Review of Systems Const Denies weight gain and Denies weight loss ENT Reports no additional complaints, Denies dysphagia and Denies odynophagia Card Reports no additional complaints Resp Reports no additional complaints GI Reports abdominal pain, Denies belching, Denies melena, Reports bloating, Denies change in bowel habits, Denies dysphagia, Denies excessive flatus, Reports dyspepsia, Reports heartburn, Denies diarrhea, Denies loose stools, Reports nausea, Denies odynophagia and Denies vomiting Musc Reports no additional complaints Neuro Reports no additional complaints Psych Reports no additional complaints Endo Reports no additional complaints Physical Exam Vital Signs: Last Vital Signs Pulse 78 03/02/23 08:06 BP 113/72 03/02/23 08:06 BMI result Body Mass Index 40.0 Const General: healthy appearing, no acute distress and well developed Nutritional Appearance: obese Orientation/consciousness: patient oriented x3 HEENT Head: Yes normal to inspection, Yes normocephalic and Yes atraumatic Face and sinus: Yes normal facial exam Mouth: Normal oral and palatal mucosa present Throat: Yes posterior oropharynx normal, Yes tonsils normal and Yes uvula midline Eyes General: appearance normal, both eyes and all related structures Neck Neck: Yes normal visual inspection, Yes full ROM and Yes trachea midline Thyroid: Thyroid normal Resp Effort & Inspection: normal respiratory effort, able to speak in complete sentences, no tracheal deviation and symmetric chest movement Auscultation: clear to auscultation bilaterally Cardio Rate: regular rate Heart sounds: S1 normal heart sound present and S2 normal heart sound present GI Inspection: Yes normal to inspection, No distended and Yes obesity Palpation (GI): Soft to palpation, not firm, nontender and No hepatosplenomegaly present Auscultation: normal bowel sounds General: Yes no CVA tenderness Back/Spine/Pelvis Back: no CVA tenderness Skin General skin exam: elasticity normal, turgor normal and dry skin Neuro General: patient oriented x3 Psych Appearance: grossly normal Mental Status: mental status grossly normal Speech and movement: Normal speech and movement present Affect: normal affect Results Reviewed Results Reviewed: ABDOMINAL CT SCAN 02/27/23 FINDINGS: LUNG BASES: The visualized lung bases are unremarkable.? LIVER, GALLBLADDER, AND BILIARY TREE: The liver is normal in size, shape, and attenuation. No focal hepatic lesion or biliary ductal dilatation is present. The gallbladder is unremarkable with no evidence of radiopaque gallstones, gallbladder wall thickening, or obvious pericholecystic inflammatory changes.? PANCREAS: Unremarkable.? SPLEEN: Unremarkable.? ADRENAL GLANDS: Unremarkable.? KIDNEYS AND URETERS: The kidneys are normal in size, shape, and attenuation. No hydronephrosis, hydroureter, or calculi seen. No perinephric stranding. ? BLADDER: Unremarkable.? GASTROINTESTINAL TRACT: There are several dilated small bowel loops in left midabdomen without any mural thickening. There is small bowel feces sign present in some of the segments of small bowel. Mild dilatation of the proximal duodenum is noted as well. There is a mural thickening involving small bowel loops. There is a transition noted on axial image 32/3 through 45/3. The stomach is nondilated. The ileal loops appear normal caliber. There is scattered colonic diverticulosis, most prominent sigmoid region without mural thickening or fat stranding. Appendix is normal caliber. No inflammatory process seen in the peritoneum. No free fluid. ABDOMINAL WALL: Small lumbar canal hernia containing fat.? LYMPH NODES: Normal. VASCULAR: Unremarkable. PELVIC VISCERA: The uterus is anteverted and unremarkable. No adnexal mass or free fluid.? OSSEOUS STRUCTURES: Mild ventral spondylosis lower dorsal and upper lumbar spine. Small sclerotic lesion L5 L2 and L1 vertebra.? CT/CT abdomen pelvis w IV con IMPRESSION: Multiple dilated proximal small bowel loops in left midabdomen with mural thickening suggestive of an tendinitis. Rest of the small bowel loops and stomach is unremarkable ? Colonic diverticulosis without diverticulitis. ? Assessment & Plan Assessment & Plan (1) Constipation: Code(s): K59.00 - Constipation, unspecified Qualifiers: Constipation type: chronic idiopathic constipation Qualified Code(s): K59.04 - Chronic idiopathic constipation Plan: Will start patient on Linzess 290 mcg. Patient was encouraged to increase fluid intake and activity to promote better bowel motility (2) Hemorrhoid: Code(s): K64.9 - Unspecified hemorrhoids Qualifiers: Hemorrhoid type: unspecified Qualified Code(s): K64.9 - Unspecified hemorrhoids Plan: Continue Proctosol on as needed basis (3) Screen for colon cancer: Code(s): Z12.11 - Encounter for screening for malignant neoplasm of colon Plan: As mentioned above in HPI patient has no issues with anesthesia in the past. Will send patient for colonoscopy. Not on any anticoagulation medication. Discussed patient with expect before during and after the procedure. Went over clear liquid diet as well as how to prep day before the procedure. (4) GERD (gastroesophageal reflux disease): Code(s): K21.9 - Gastro-esophageal reflux disease without esophagitis Qualifiers: Esophagitis presence: esophagitis presence not specified Qualified Code(s): K21.9 - Gastro-esophageal reflux disease without esophagitis Plan: Discussed with patient avoiding dietary triggers like a snacking. Staying upright for minimal 3 hours after meals discussed with patient. Patient will be started on pantoprazole in the morning half an hour before breakfast. She will be sent for upper endoscopy to rule out gastritis, esophagitis, duodenitis, gastric or peptic ulcers, Rubalcava's, H pylori. Patient will be seen after the procedure, sooner on as needed basis. Patient is agreeable to this plan and verbalizes understanding of instructions. She was given the opportunity to ask questions and all questions answered. Thank you for allowing me to participate in her care Medications: New bisacodyl (Dulcolax (bisacodyl)) take 2 tabs at noon the day before your colonoscopy 10 mg (2 x 5 mg) PO ONCE 2 tabs 0RF 1 day Z12.11 - Encounter for screening for malignant neoplasm of colon polyethylene glycol 3350 (Miralax) As directed by gastroenterology department at [facility] 238 grams PO ONCE 238 grams 0RF Z12.11 - Encounter for screening for malignant neoplasm of colon linaclotide (Linzess) 290 mcg PO QAM 30 caps 4RF K59.00 - Constipation, unspecified pantoprazole take one tablet half an hour before breakfast 40 mg PO DAILY 30 tabs 2RF K21.9 - Gastro-esophageal reflux disease without esophagitis simethicone 125 mg PO BID-QID PRN 120 caps 3RF abdominal distention K21.9 - Gastro-esophageal reflux disease without esophagitis Discontinued doxycycline monohydrate Discontinued Reason: Patient no longer taking 100 mg PO BID 14 caps 0RF ondansetron Discontinued Reason: Patient Completed Course 4 mg PO Q8H PRN 20 tabs 0RF nausea and vomiting ibuprofen Discontinued Reason: Doctor's Order 600 mg PO Q6H PRN 30 tabs 0RF pain S83.206A - Unspecified tear of unspecified meniscus, current injury, right knee, initial encounter linaclotide Discontinued Reason: Doctor's Order 145 mcg PO DAILY 30 caps 4RF K59.04 - Chronic idiopathic constipation Coding Level of Care Code Est Pt Level 4 (73734) Diagnoses Constipation K59.04 Constipation type: chronic idiopathic constipation Hemorrhoid K64.9 Hemorrhoid type: unspecified Screen for colon cancer Z12.11 GERD (gastroesophageal reflux disease) K21.9 Esophagitis presence: esophagitis presence not specified Time Spent (min) 40 Comment 25 minutes spent with patient and additional 15 minutes spent reviewing her records
[2023-03-02 08:06] VITALS: BP 113/72; PULSE 78; BMI 40.0
== END 2023-03-02 08:51 | disposition home or self-care (01) ==
PROVIDERS: PCP General Practice; Visit Provider Nurse Practitioner Family
DX: K59.04 Chronic idiopathic constipation (principal); K64.9 Unspecified hemorrhoids; Z12.11 Encounter for screening for malignant neoplasm of colon; K21.9 Gastro-esophageal reflux disease without esophagitis
CPT/HCPCS: 99214

== ENCOUNTER → 2023-03-02 07:59 | Outpatient (BNVA) | payer OTHER, SELFPAY | PROVIDERS: PCP General Practice; Visit Provider Nurse Practitioner Family | DX: Z12.11 Encounter for screening for malignant neoplasm of colon (principal); K59.04 Chronic idiopathic constipation; K64.9 Unspecified hemorrhoids; K21.9 Gastro-esophageal reflux disease without esophagitis | CPT/HCPCS: 99212 ==

== ENCOUNTER 2023-04-29 11:24 | Day surgery (SDC) | payer OTHER, SELFPAY ==
[2023-04-27 13:28] VITALS: BMI 39.8
--- NOTE | 2023-04-28 09:27 | HO.ANESPROP2 ---
Documented by User: Yasmin Ayala NP 04/28/23 09:29 HPI - Anesthesia Eval Consult details Narrative: 52yo F for Upper Endoscopy and Colonoscopy [facility] Active Problems Active Problems: All Active Problems (Updated 02/28/23 @ 00:01 by Geovanny Acuna) COPD (chronic obstructive pulmonary disease) (Acute) Degenerative tear of meniscus (Acute) Patellofemoral arthritis of right knee (Acute) Acute meniscal tear of right knee (Acute) Right knee pain (Acute) Past Medical History Medical History COPD (chronic obstructive pulmonary disease) Family History Family History Mother Arteriosclerosis of bypass graft of coronary artery Alzheimer disease Father No problems noted. Surgical History Surgical History Previous section Social History Social History Alcohol intake: never Patient Tobacco Use Status: Current everyday Tobacco user Tobacco use type: Cigarette Cigarette Packs Per Day: 0.5 Cigarettes Per Day: 10.0 Have you been hit, kicked, punched, or otherwise hurt by someone within the past year? If so, by whom?: No Are you DNR?: No Advance Directives: No Advance Directives Information Provided: Yes Recently lost weight without trying: No Nutrition Risks: No Nutritional Risk Patient : No Current occupational status: employed Current occupation: right handed Meds Allergies Allergy/AdvReac Type Severity Reaction Status Date / Time oxycodone [From PERCOCET] Allergy Unknown NAUSEA, Verified 03/02/23 08:03 DIZZINESS acetaminophen [Percocet] AdvReac Unknown agitation, Verified 03/02/23 08:03 hallucinations Exam Exam Date and Time: April 28, [id number] Height,Weight and Vital Signs: Height 4 ft 11 in Weight 89.358 kg Assessment and Plan Assessment Anesthesia Assessment: Chart Reviewed Documented by User: Floresita Kang MD 04/29/23 14:29 [facility] Past Medical History Medical History COPD (chronic obstructive pulmonary disease) Family History Family History Mother Arteriosclerosis of bypass graft of coronary artery Alzheimer disease Father No problems noted. Family history of problems with anesthesia: No Surgical History Surgical History Previous section History of Problems with Anesthesia: No Social History Social History Alcohol intake: never Patient Tobacco Use Status: Current everyday Tobacco user Tobacco use type: Cigarette Cigarette Packs Per Day: 0.5 Cigarettes Per Day: 10.0 Have you been hit, kicked, punched, or otherwise hurt by someone within the past year? If so, by whom?: No Are you DNR?: No Advance Directives: No Advance Directives Information Provided: Yes Recently lost weight without trying: No Nutrition Risks: No Nutritional Risk Patient : No Current occupational status: employed Current occupation: right handed Meds Allergies Allergy/AdvReac Type Severity Reaction Status Date / Time oxycodone [From PERCOCET] Allergy Unknown NAUSEA, Verified 03/02/23 08:03 DIZZINESS acetaminophen [Percocet] AdvReac Unknown agitation, Verified 03/02/23 08:03 hallucinations Exam Airway Mallampati Class: II TM Dist: >3cm Neck ROM: Full Heart: rrr Lungs: cta Assessment and Plan Assessment Anesthesia Assessment: Anesthesia Plan Discussed Final Anesthetic Review Family History of Problems with Anesthesia: No History of Problems with Anesthesia: No NPO: Yes ASA Class: II Final Preanesthetic Review: No Changes in Pt Med Stat, Meds/Allgs Chart Reviewed and Consent Obtained/Reviewed Patient Risk: Intermediate Procedure Risk: Intermediate Anesthetic Plan Anesthetic Plan: MAC: Disposition: Standard PACU
[2023-04-29 13:08] VITALS: TEMP 36.4
[2023-04-29 13:12] LABS: Urine Pregnancy NEGATIVE (NEGATIVE)
[2023-04-29 13:13] LABS: UPreg QC Valid YES
--- NOTE | 2023-04-29 13:38 | MHC.SHP ---
Pre-Procedural Eval Section A Date of Service: 04/29/23 The patient is an INPATIENT: No The History & Physical has been completed within 30 days and I have reviewed it.: No Section B Chief Complaint: Epigastric pain, Screening Relevant Family History (Specify if Yes): No Relevant Social History: Tobacco Use Present Medications: see Short Stay Collaborative assessment Medical History: Significant History (COPD, rt knee pain) History of Previous Operations: Relevant previous surgery/procedure and date(s) ( section) Allergies: Allergies Allergy/AdvReac Type Severity Reaction Status Date / Time oxycodone [From PERCOCET] Allergy Unknown NAUSEA, Verified 03/02/23 08:03 DIZZINESS acetaminophen [Percocet] AdvReac Unknown agitation, Verified 03/02/23 08:03 hallucinations Review of Systems Sugical H&P ROS: Negative: Constitution, Cardiovascular, Respiratory and Gastrointestinal Exam Surgical H&P Exam: Normal: Heart, Normal: Lungs, Normal: Extremities and Normal: Abdomen Plan Diagnosis/Plan: Unchanged I have reviewed the history and physical and performed a pertinent physical examination on my patient. No changes have occurred unless specified. Time Spent With Patient Time: Total time managing care of this patient today ____ minutes.
[2023-04-29 13:56] VITALS: BP 124/79; PULSE 73; RESP 16; TEMP 36.4; O2SAT 97
--- NOTE | 2023-04-29 14:52 | P.OP_ITS ---
Operative Note Operative Note Date of Service: 04/29/23 Narrative: FLEXIBLE TRANSORAL UPPER GASTROINTESTINAL ENDOSCOPY WITH BIOPSIES AND COLONOSCOPY TILL CECUM WITH SNARE POLYPECTOMY Pre-op diagnosis: Screening, chronic constipation, postprandial epigastric discomfort and dyspepsia Post-op diagnosis: Gastritis, colon polyps, diverticulosis, hemorrhoids? Endoscopist:? Bee Rodriguez MD Anesthesia:?MAC UPPER ENDOSCOPY Consent: Indications for the procedure and potential complications of bleeding, perforation, reaction to medications and missed diagnosis were discussed with the patient and informed consent was obtained. Instrument: Olympus GIF H 190 mid size upper endoscope Monitoring: Vital signs and clinical assessment, continuous EKG monitoring, Pulse oximetry, Carbon Dioxide monitoring and blood pressure monitoring were done throughout the procedure. Procedure: The patient was placed in the left lateral decubitis position and pre-procedure medications were administered and a bite block was placed. The endoscope was inserted into the mouth and advanced under direct vision to the third part of duodenum. A careful inspection was made as the upper endoscope was withdrawn including a retroflexed examination of the proximal stomach; Findings and interventions are described below. Findings: Larynx: Normal Esophagus: GE junction at 35 cms. No esophagitis or Rubalcava's. Stomach: Nodular appearing mucosa in the gastric body - biopsied. Mild gastric erythema. Biopsies were obtained. Grade 2 flap valve on retroflexed examination of the cardia. Duodenum: Normal bulb and descending duodenum. Biopsies were obtained from 3rd part of duodenum to check for celiac sprue. Intervention: Biopsies as noted above COLONOSCOPY PROCEDURE NOTE Consent: Indications for the procedure and potential complications of bleeding, perforation, reaction to medications and missed diagnosis were discussed with the patient and informed consent was obtained. Instrument: Olympus PCF H 190 L variable stiffness pediatric colonoscope Monitoring: Vital signs and clinical assessment, intermittent blood pressure monitoring, continuous EKG monitoring, Pulse oximetry and Carbon Dioxide monitoring were done throughout the procedure. Colon withdrawl time was 18 minutes. Procedure: The patient was placed in the left lateral decubitis position and pre-procedure medications were administered. After a digital rectal examination of the ano-rectum, the video colonoscope was inserted into the rectum and advanced through the colon to the cecum. The colonoscope was slowly withdrawn in a retrograde panoramic fashion and the colon mucosa was carefully examined including a retroflexed view of the rectum. Findings and interventions are described below. Procedure Difficulty: : Without difficulty Findings: Terminal Ileum: Not evaluated Cecum: Normal Ascending Colon: Normal Transverse Colon: A 9 to 10 mm sessile polyp - removed wih a cold snare Descending Colon: Moderate diverticulosis Sigmoid Colon: A 10 mm sessile polyp removed with a cold snare Moderate diverticulosis Rectum: Normal Ano-rectum: Moderate internal hemorrhoids Colon preparation: Good after some irrigation Impression and Post Procedure Diagnosis: Endoscopy Findings: STOMACH: Nodular appearing mucosa in the gastric body - biopsied. Mild gastric erythema. Biopsies were obtained. DUODENUM: Normal - biopsied to check for celiac sprue Colonoscopy Findings: Two medium sized polyps removed Moderate diverticulosis seen in the left colon Moderate hemorrhoids on retroflexed exam. Plan: Await pathology results Patient has an appointment on 05/13/23 in the [facility] with Kelsey Morales FNP- [facility]. Repeat Colonoscopy interval based on path results - in 3-5 years if polyps are adenomatous and 10 years if polyps are hyperplastic. Above findings were reviewed with the patient and colon polyps and diverticulosis handouts were given in the discharge area
[2023-04-29 15:34] VITALS: BP 91/55; PULSE 72; RESP 16; TEMP 36.1; O2SAT 94
[2023-04-29 15:49] VITALS: BP 117/73; PULSE 76; RESP 14; O2SAT 100
[2023-04-29 16:04] VITALS: BP 130/76; PULSE 70; RESP 16; TEMP 36.3; O2SAT 99
== END 2023-04-29 16:18 | disposition home or self-care (01) ==
PROVIDERS: Anesthesiology; PCP General Practice; Visit Provider Internal Medicine Gastroenterology
PROC: (CPT 45385; principal; 2023-04-29 13:40)
DX: Z12.11 Encounter for screening for malignant neoplasm of colon (principal); D12.5 Benign neoplasm of sigmoid colon; K51.40 Inflammatory polyps of colon without complications; K57.30 Diverticulosis of large intestine without perforation or abscess without bleeding; K64.8 Other hemorrhoids; K59.09 Other constipation; R10.13 Epigastric pain; K29.70 Gastritis, unspecified, without bleeding
CPT/HCPCS: 45385; 43239; 81025; 88305; 88342; J2250

== ENCOUNTER → 2023-04-29 11:24 | Outpatient (BNV) | payer OTHER, SELFPAY | PROVIDERS: PCP General Practice; Visit Provider Internal Medicine Gastroenterology | DX: Z12.11 Encounter for screening for malignant neoplasm of colon (principal); D12.3 Benign neoplasm of transverse colon; D12.5 Benign neoplasm of sigmoid colon; K57.30 Diverticulosis of large intestine without perforation or abscess without bleeding; R10.13 Epigastric pain; K29.70 Gastritis, unspecified, without bleeding | CPT/HCPCS: 43239; 45385 ==

== ENCOUNTER 2023-05-13 10:00 | Outpatient (AMB) | payer OTHER, SELFPAY ==
--- NOTE | 2023-05-13 10:05 | MHC.OFFVIS ---
Intake Vital Signs 05/13/23 10:12 Height 4 ft 11 in Weight 194 lb BMI 39.2 Intake Visit Reasons: S/p egd/colon-Michael Intake Note: Patient is present for POST OP Colonoscopy Follow up Patient states that since colonoscopy she has been having burning/Stinging around rectum area. Some blood is present after wiping. She states that she is in discomfort since procedure. No change in medications. Allergies oxycodone [From PERCOCET] Allergy (Unknown, Verified 05/13/23 10:11) NAUSEA, DIZZINESS acetaminophen [Percocet] Adverse Reaction (Unknown, Verified 05/13/23 10:11) agitation, hallucinations HPI S/p egd/colon-Michael HPI Details LAST VISIT Constipation Will start patient on Linzess 290 mcg. Patient was encouraged to increase fluid intake and activity to promote better bowel motility Hemorrhoid Continue Proctosol on as needed basis Screen for colon cancer As mentioned above in HPI patient has no issues with anesthesia in the past. Will send patient for colonoscopy. Not on any anticoagulation medication. Discussed patient with expect before during and after the procedure. Went over clear liquid diet as well as how to prep day before the procedure. GERD (gastroesophageal reflux disease) Discussed with patient avoiding dietary triggers like a snacking. Staying upright for minimal 3 hours after meals discussed with patient. Patient will be started on pantoprazole in the morning half an hour before breakfast. She will be sent for upper endoscopy to rule out gastritis, esophagitis, duodenitis, gastric or peptic ulcers, Rubalcava's, H pylori. Patient will be seen after the procedure, sooner on as needed basis. Patient is agreeable to this plan and verbalizes understanding of instructions. She was given the opportunity to ask questions and all questions answered. ? Thank you for allowing me to participate in her care UPPER ENDOSCOPY AND COLONOSCOPY Findings: Larynx: Normal Esophagus: GE junction at 35 cms. No esophagitis or Rubalcava's. Stomach: Nodular appearing mucosa in the gastric body - biopsied. Mild gastric erythema. Biopsies were obtained. Grade 2 flap valve on retroflexed examination of the cardia. Duodenum: Normal bulb and descending duodenum. Biopsies were obtained from 3rd part of duodenum to check for celiac sprue. Intervention: Biopsies as noted above Findings: Terminal Ileum: Not evaluated Cecum: Normal Ascending Colon: Normal Transverse Colon: A 9 to 10 mm sessile polyp - removed wih a cold snare Descending Colon: Moderate diverticulosis Sigmoid Colon: A 10 mm sessile polyp removed with a cold snare Moderate diverticulosis Rectum: Normal Ano-rectum: Moderate internal hemorrhoids Colon preparation: Good after some irrigation Impression and Post Procedure Diagnosis: Endoscopy Findings: STOMACH: Nodular appearing mucosa in the gastric body - biopsied. Mild gastric erythema. Biopsies were obtained. DUODENUM: Normal - biopsied to check for celiac sprue Colonoscopy Findings: Two medium sized polyps removed Moderate diverticulosis seen in the left colon Moderate hemorrhoids on retroflexed exam. Plan: Repeat Colonoscopy interval based on path results - in 3-5 years if polyps are adenomatous and 10 years if polyps are hyperplastic. PATHOLOGY RESULTS Diagnosis A. Small bowel, biopsy: Small bowel mucosa within normal limits; preserved villous architecture and no increased intraepithelial lymphocytes seen. B. Stomach, antrum, biopsy: Gastric antral mucosa within normal limits; negative for Helicobacter pylori, intestinal metaplasia and dysplasia. C. Stomach, body, biopsy: Gastric body mucosa within normal limits; negative for Helicobacter pylori, intestinal metaplasia and dysplasia. D. Colon, transverse, polypectomy: Inflammatory polyp. E. Colon, sigmoid, polypectomy: Tubular adenoma; negative for high-grade dysplasia. TODAY'S VISIT Patient is here today for follow-up and to discuss upper endoscopy and colonoscopy results. Patient denies any ill effects from the prep, anesthesia or procedure itself. Patient continues to have pain or burning in her rectum after bowel movements. Patient reports that pain is there sometimes even when she does not have a bowel movement. Patient was diagnosed with moderate internal hemorrhoids sigmoid polyp showing tubular adenoma without high-grade dysplasia or carcinoma. Transverse colon had inflammatory polyp. Patient denies melena, hematochezia, unintentional weight loss or ribbon like stools. Patient denies dyspepsia, dysphagia or odynophagia. Patient reports that she has occasional loose stools then she will feel constipated. Is taking Linzess every day, however she feels like she does not empty her bowels completely. COUNT INCLUDES [facility] Medical History COPD (chronic obstructive pulmonary disease) Surgical History History of esophagogastroduodenoscopy (EGD) Hx of colonoscopy Previous section Family History Mother Arteriosclerosis of bypass graft of coronary artery Alzheimer disease Father No problems noted. Social History Alcohol intake: never Patient Tobacco Use Status: Current everyday Tobacco user Tobacco use type: Cigarette Cigarette Packs Per Day: 0.5 Cigarettes Per Day: 10.0 Current occupational status: employed Current occupation: right handed Review of Systems Const Denies weight gain and Denies weight loss ENT Reports no additional complaints, Denies dysphagia and Denies odynophagia Card Reports no additional complaints Resp Reports no additional complaints GI Denies abdominal pain, Denies belching, Denies melena, Reports bloating, Reports constipation, Denies dysphagia, Denies excessive flatus, Denies dyspepsia, Denies heartburn, Denies diarrhea, Reports loose stools, Denies nausea, Denies odynophagia, Denies vomiting and Reports other (Rectal pain and burning) Reports no additional complaints Musc Reports no additional complaints Neuro Reports no additional complaints Psych Reports no additional complaints Endo Reports no additional complaints Physical Exam Vital Signs: BMI result Body Mass Index 39.2 Const General: healthy appearing, no acute distress and well developed Nutritional Appearance: obese Orientation/consciousness: patient oriented x3 HEENT Head: Yes normal to inspection, Yes normocephalic and Yes atraumatic Face and sinus: Yes normal facial exam Mouth: Normal oral and palatal mucosa present Throat: Yes posterior oropharynx normal, Yes tonsils normal and Yes uvula midline Eyes General: appearance normal, both eyes and all related structures Neck Neck: Yes normal visual inspection, Yes full ROM and Yes trachea midline Thyroid: Thyroid normal Resp Effort & Inspection: normal respiratory effort, able to speak in complete sentences, no tracheal deviation and symmetric chest movement Auscultation: clear to auscultation bilaterally Cardio Rate: regular rate Heart sounds: S1 normal heart sound present and S2 normal heart sound present GI Inspection: Yes normal to inspection, No distended and Yes obesity Palpation (GI): Soft to palpation, not firm, nontender and No hepatosplenomegaly present Auscultation: normal bowel sounds Rectal Exam - Female: External hemorrhoid(s) present General: Yes no CVA tenderness Back/Spine/Pelvis Back: no CVA tenderness Skin General skin exam: elasticity normal, turgor normal and dry skin Neuro General: patient oriented x3 Psych Appearance: grossly normal Mental Status: mental status grossly normal Speech and movement: Normal speech and movement present Assessment & Plan Assessment & Plan (1) Constipation: Code(s): K59.00 - Constipation, unspecified Qualifiers: Constipation type: slow transit constipation Qualified Code(s): K59.01 - Slow transit constipation Plan: Continue Linzess. Patient was encouraged to increase fluid intake and activity to promote better bowel motility. Patient will take Citrucel 1-2 hours after Linzess to help her bulk her stools. (2) Hemorrhoid: Code(s): K64.9 - Unspecified hemorrhoids Qualifiers: Hemorrhoid type: unspecified Qualified Code(s): K64.9 - Unspecified hemorrhoids Plan: Internal hemorrhoids moderate size found on colonoscopy. Patient also has external hemorrhoids. If she will not have improvement after using Proctosol cream will send to General surgery (3) Screen for colon cancer: Code(s): Z12.11 - Encounter for screening for malignant neoplasm of colon Plan: Colonoscopy in 3 years due to tubular adenoma found in sigmoid colon, sooner if clinically necessary. (4) GERD (gastroesophageal reflux disease): Code(s): K21.9 - Gastro-esophageal reflux disease without esophagitis Qualifiers: Esophagitis presence: without esophagitis Qualified Code(s): K21.9 - Gastro-esophageal reflux disease without esophagitis Plan: Continue pantoprazole every morning half an hour before breakfast. Continue avoiding dietary triggers in late night snacking. Staying upright for minimum 3 hours after meals discussed with patient. I will see patient in 3 months, sooner on as needed basis. Patient is agreeable to this plan and verbalizes understanding of instructions. She was given the opportunity to ask questions and all questions answered Medications: New methylcellulose (laxative) (Citrucel) take it with full glass of water 500 mg PO DAILY 90 tabs 2RF K59.00 - Constipation, unspecified Refilled hydrocortisone 2.5% (Proctosol HC) 1 appl SD BID-QID PRN 30 grams 2RF hemorrhoids K64.9 - Unspecified hemorrhoids simethicone 125 mg PO BID-QID PRN 120 caps 3RF abdominal distention K21.9 - Gastro-esophageal reflux disease without esophagitis pantoprazole take one tablet half an hour before breakfast 40 mg PO DAILY 90 tabs 2RF K21.9 - Gastro-esophageal reflux disease without esophagitis Coding Level of Care Code Est Pt Level 4 (80314) Diagnoses Slow transit constipation K59.01 Constipation type: slow transit constipation Hemorrhoids, unspecified hemorrhoid type K64.9 Hemorrhoid type: unspecified Screen for colon cancer Z12.11 Gastroesophageal reflux disease without esophagitis K21.9 Esophagitis presence: without esophagitis Time Spent (min) 35 Comment 20 minutes spent with patient and additional 15 minutes spent reviewing her records
[2023-05-13 10:12] VITALS: BMI 39.2
== END 2023-05-13 10:31 | disposition home or self-care (01) ==
PROVIDERS: PCP General Practice; Visit Provider Nurse Practitioner Family
DX: K59.01 Slow transit constipation (principal); K64.9 Unspecified hemorrhoids; Z12.11 Encounter for screening for malignant neoplasm of colon; K21.9 Gastro-esophageal reflux disease without esophagitis
CPT/HCPCS: 99214

== ENCOUNTER → 2023-05-13 10:00 | Outpatient (BNVA) | payer OTHER, SELFPAY | PROVIDERS: PCP General Practice; Visit Provider Nurse Practitioner Family | DX: D12.5 Benign neoplasm of sigmoid colon (principal); K63.5 Polyp of colon; K64.8 Other hemorrhoids; K59.01 Slow transit constipation; K21.9 Gastro-esophageal reflux disease without esophagitis; Z79.899 Other long term (current) drug therapy; Z98.890 Other specified postprocedural states | CPT/HCPCS: 99212 ==

== ENCOUNTER 2023-08-12 08:17 | Outpatient (AMB) | payer OTHER, SELFPAY ==
[2023-08-12 08:19] VITALS: BP 123/57; PULSE 82; BMI 39.4
--- NOTE | 2023-08-12 08:19 | A.OFFVIS_ITS ---
Intake Vital Signs 08/12/23 08:19 Height 4 ft 11 in Weight 195 lb 5.273 oz BMI 39.4 BP 123/57 L Blood Pressure Location Lt brachial Position Sitting Pulse 82 Pulse Source Pulse Oximeter Intake Visit Reasons: 3 month follow up Intake Note: Pt presents to the office today for a 3 month follow up. Pt states she is feeling so much better and is very relieved. Pt denies any other GI concerns at this time. Allergies oxycodone [From PERCOCET] Allergy (Unknown, Verified 08/12/23 08:21) NAUSEA, DIZZINESS acetaminophen [Percocet] Adverse Reaction (Unknown, Verified 08/12/23 08:21) agitation, hallucinations HPI 3 month follow up HPI Details LAST VISIT Constipation Continue Linzess. Patient was encouraged to increase fluid intake and activity to promote better bowel motility. Patient will take Citrucel 1-2 hours after Linzess to help her bulk her stools. Hemorrhoid Internal hemorrhoids moderate size found on colonoscopy. Patient also has external hemorrhoids. If she will not have improvement after using Proctosol cream will send to General surgery Screen for colon cancer Colonoscopy in 3 years due to tubular adenoma found in sigmoid colon, sooner if clinically necessary. GERD (gastroesophageal reflux disease) Continue pantoprazole every morning half an hour before breakfast. Continue avoiding dietary triggers in late night snacking. Staying upright for minimum 3 hours after meals discussed with patient. I will see patient in 3 months, sooner on as needed basis. Patient is agreeable to this plan and verbalizes und erstanding of instructions. She was given the opportunity to ask questions and all questions answered Plan Medications New methylcellulose (laxative) (Citrucel) take it with full glass of water 500 mg PO DAILY 90 tabs 2RF K59.00 Refilled hydrocortisone 2.5% (Proctosol HC) 1 appl [place] BID-QID PRN 30 grams 2RF hemor rhoids K64.9 simethicone 125 mg PO BID-QID PRN 120 caps 3RF abdom inal distention K21.9 pantoprazole take one tablet half an hour before breakfast 40 mg PO DAILY 90 tabs 2RF K21.9 TODAY'S VISIT Patient is here today for follow-up. Patient reports that since she some you lost time she has been doing better. Patient is following low FODMAP diet as much as possible. Her symptoms of his diarrhea had abdominal distension improved. Patient also is moving her bowels better. Patient is taking Linzess every morning and is moving her bowels every day. Patient reports that she no longer has rectal discomfort and hemorrhoids are under control. Patient reports that when she feels swelling or discomfort she does Sitz baths with Epsom salts and she feels more comfortable. Patient is also using Proctosol. Her symptoms of acid reflux are suppressed with pantoprazole. Patient is avoiding spicy and fried food. Patient denies dyspepsia, dysphagia or odynophagia. Denies melena, hematochezia, unintentional weight loss or ribbon like stools. [facility] Medical History COPD (chronic obstructive pulmonary disease) Surgical History History of esophagogastroduodenoscopy (EGD) Hx of colonoscopy Previous section Family History Mother Arteriosclerosis of bypass graft of coronary artery Alzheimer disease Father No problems noted. Social History (Updated 08/12/23 @ 08:24 by Clarice Cheatham MA) Alcohol intake: never Patient Tobacco Use Status: Current everyday Tobacco user Tobacco use type: Cigarette Cigarettes Per Day: 6 Current occupational status: employed Current occupation: right handed Review of Systems Const Denies weight gain and Denies weight loss ENT Reports no additional complaints, Denies dysphagia and Denies odynophagia Card Reports no additional complaints Resp Reports no additional complaints GI Denies abdominal pain, Denies belching, Denies melena, Denies bloating, Denies change in bowel habits, Denies dysphagia, Denies excessive flatus, Denies dyspepsia, Denies heartburn, Denies diarrhea, Denies loose stools, Denies nausea, Denies odynophagia and Denies vomiting Musc Reports no additional complaints Neuro Reports no additional complaints Psych Reports no additional complaints Endo Reports no additional complaints Physical Exam Vital Signs: Last Vital Signs Pulse 82 08/12/23 08:19 BP 123/57 L 08/12/23 08:19 BMI result Body Mass Index 39.4 Const General: healthy appearing, no acute distress and well developed Nutritional Appearance: obese Orientation/consciousness: patient oriented x3 HEENT Head: Yes normal to inspection, Yes normocephalic and Yes atraumatic Face and sinus: Yes normal facial exam Mouth: Normal oral and palatal mucosa present Throat: Yes posterior oropharynx normal, Yes tonsils normal and Yes uvula midline Eyes General: appearance normal, both eyes and all related structures Neck Neck: Yes normal visual inspection, Yes full ROM and Yes trachea midline Thyroid: Thyroid normal Resp Effort & Inspection: normal respiratory effort, able to speak in complete sentences, no tracheal deviation and symmetric chest movement Auscultation: clear to auscultation bilaterally Cardio Rate: regular rate GI Inspection: Yes normal to inspection, No distended and Yes obesity Palpation (GI): Soft to palpation, not firm, nontender and No hepatosplenomegaly present Auscultation: normal bowel sounds General: Yes no CVA tenderness Back/Spine/Pelvis Back: no CVA tenderness Skin General skin exam: elasticity normal, turgor normal and dry skin Neuro General: patient oriented x3 Psych Appearance: grossly normal Mental Status: mental status grossly normal Affect: normal affect Assessment & Plan Assessment & Plan (1) Constipation: Code(s): K59.00 - Constipation, unspecified Qualifiers: Constipation type: chronic idiopathic constipation Qualified Code(s): K59.04 - Chronic idiopathic constipation (2) Hemorrhoid: Code(s): K64.9 - Unspecified hemorrhoids Qualifiers: Hemorrhoid type: unspecified Qualified Code(s): K64.9 - Unspecified hemorrhoids (3) Screen for colon cancer: Code(s): Z12.11 - Encounter for screening for malignant neoplasm of colon (4) GERD (gastroesophageal reflux disease): Code(s): K21.9 - Gastro-esophageal reflux disease without esophagitis Qualifiers: Esophagitis presence: without esophagitis Qualified Code(s): K21.9 - Gastro-esophageal reflux disease without esophagitis Plan Continue current regimen with pantoprazole every morning. Patient was encouraged to avoid dietary triggers in late night snacking. Continue avoiding spicy food. Continue low FODMAP diet. Linzess daily. Patient was also encouraged to increase fluid intake and activity to promote better bowel motility. Patient will return in 6 months, sooner on as needed basis. Patient is agreeable to this plan and verbalizes understanding of instructions. She was given the opportunity to ask questions and all questions answered. Thank you for allowing me to participate in her care Medications: Refilled pantoprazole take one tablet half an hour before breakfast 40 mg PO DAILY 90 tabs 2RF K21.9 - Gastro-esophageal reflux disease without esophagitis linaclotide (Linzess) 290 mcg PO QAM 90 caps 2RF K59.00 - Constipation, unspecified Coding Level of Care Code Est Pt Level 3 (67783) Diagnoses Chronic idiopathic constipation K59.04 Constipation type: chronic idiopathic constipation Hemorrhoids, unspecified hemorrhoid type K64.9 Hemorrhoid type: unspecified Screen for colon cancer Z12.11 Gastroesophageal reflux disease without esophagitis K21.9 Esophagitis presence: without esophagitis Time Spent (min) 30 Comment 20 minutes spent with patient and additional 15 minutes spent reviewing her records
== END 2023-08-12 08:53 | disposition home or self-care (01) ==
PROVIDERS: PCP General Practice; Visit Provider Nurse Practitioner Family
DX: K59.04 Chronic idiopathic constipation (principal); K64.9 Unspecified hemorrhoids; Z12.11 Encounter for screening for malignant neoplasm of colon; K21.9 Gastro-esophageal reflux disease without esophagitis
CPT/HCPCS: 99213

== ENCOUNTER → 2023-08-12 08:17 | Outpatient (BNVA) | payer OTHER, SELFPAY | PROVIDERS: PCP General Practice; Visit Provider Nurse Practitioner Family | DX: Z12.11 Encounter for screening for malignant neoplasm of colon (principal); K59.04 Chronic idiopathic constipation; K64.9 Unspecified hemorrhoids; K21.9 Gastro-esophageal reflux disease without esophagitis | CPT/HCPCS: 99212 ==

== ENCOUNTER 2024-01-27 15:33 | Outpatient (REF) | payer OTHER, SELFPAY ==
[2024-01-27 18:33] LABS: Alanine Aminotransferase 17 U/L (0-31); Alkaline Phosphatase 94 U/L (39-117); Anion Gap 11 (12-20); Aspartate Amino Transferase 16 U/L (5-31); Bilirubin Total 0.3 mg/dL (0.0-1.0); Blood Urea Nitrogen 11 mg/dL (9-16); Calcium 9.3 mg/dL (8.4-10.2); Carbon Dioxide 23 mmol/L (22-29); Chloride 110 mmol/L (96-108); Cholesterol 145 mg/dL (<200); Estimated Glomerular Filt Rate > 60; Glucose Random 84 mg/dL (60-115); HDL Cholesterol 37 mg/dL (>40); LDL Cholesterol Calculated 85 mg/dL (<100); Potassium 4.2 mmol/L (3.3-5.1); Sodium 140 mmol/L (135-145); Triglycerides 115 mg/dL (<150)
== END 2024-01-27 15:34 | disposition home or self-care (01) ==
LOC: HO.HHCL 15:33
PROVIDERS: Visit Provider General Practice
DX: E66.9 Obesity, unspecified (principal); Z68.35 Body mass index [BMI] 35.0-35.9, adult
CPT/HCPCS: 36415; 80053; 80061

== ENCOUNTER 2024-02-15 08:15 | Outpatient (AMB) | payer OTHER, SELFPAY ==
--- NOTE | 2024-02-15 08:19 | A.OFFVIS_ITS ---
Vital Signs 02/15/24 08:25 Height 4 ft 11 in Weight 193 lb 1.999 oz BMI 39.0 BP 94/60 Blood Pressure Location Lt brachial Position Sitting Pulse 74 Pulse Source Pulse Oximeter Pulse Oximetry (%) 97 Oxygen Delivery Method Room Air Intake Visit Reasons: 6 month follow up Intake Note: Wanda presents in office today for a scheduled 6 mos FUV. CC: Pt was Rx'd pantoprazole and linzess at their last visit. Pt reports that their sx have been well controlled with the most recently Rx'd medications. Pt denies any new concerns or sx at this time. Associate Financial Planner Required: No Allergies oxycodone [From PERCOCET] Allergy (Unknown, Verified 02/15/24 08:23) NAUSEA, DIZZINESS acetaminophen [Percocet] Adverse Reaction (Unknown, Verified 02/15/24 08:23) agitation, hallucinations HPI HPI 6 month follow up: Details: LAST VISIT: Constipation Hemorrhoid Screen for colon cancer GERD (gastroesophageal reflux disease) Plan Continue current regimen with pantoprazole every morning. Patient was encouraged to avoid dietary triggers in late night snacking. Continue avoiding spicy food. Continue low FODMAP diet. Linzess daily. Patient was also encouraged to increase fluid intake and activity to promote better bowel motility. Patient will return in 6 months, sooner on as needed basis. Patient is agreeable to this plan and verbalizes understanding of instructions. She was given the opportunity to ask questions and all questions answered. ? Thank you for allowing me to participate in her care Medications Refilled pantoprazole take one tablet half an hour before breakfast 40 mg PO DAILY 90 tabs 2RF K21.9 linaclotide (Linzess) 290 mcg PO QAM 90 caps 2RF K59.00 TODAY'S VISIT: Patient is here for follow-up. Patient reports that since last time I have seen her she has been doing well, however she is taking Linzess 290 mcg daily and occasionally will still be constipated. Patient states that sometimes she uses [id number] Ex-Lax in order for her to have a bowel movement. Patient reports that when this happens she has abdominal bloating and pain in the lower abdomen. Symptoms of acid reflux are suppressed with pantoprazole. Patient reports that she is trying to avoid dietary triggers. Avoids eating anything spicy patient avoids eating late at night. Patient denies melena hematochezia denies dyspepsia, dysphagia or odynophagia. [facility] Medical History COPD (chronic obstructive pulmonary disease) Surgical History History of esophagogastroduodenoscopy (EGD) Hx of colonoscopy Previous section Family History Mother Arteriosclerosis of bypass graft of coronary artery Alzheimer disease Father No problems noted. Social History Alcohol intake: never Patient Tobacco Use Status: Current everyday Tobacco user Tobacco use type: Cigarette Cigarettes Per Day: 6 Current occupational status: employed Current occupation: right handed Review of Systems Const Denies weight gain and Denies weight loss ENT Reports no additional complaints, Denies dysphagia and Denies odynophagia Card Reports no additional complaints Resp Reports no additional complaints GI Denies abdominal pain, Denies belching, Denies melena, Denies bloating, Denies change in bowel habits, Denies dysphagia, Denies excessive flatus, Denies dyspepsia, Denies heartburn, Denies diarrhea, Denies loose stools, Denies nausea, Denies odynophagia and Denies vomiting Musc Reports no additional complaints Neuro Reports no additional complaints Psych Reports no additional complaints Endo Reports no additional complaints Physical Exam Vital Signs: Last Vital Signs Pulse 74 02/15/24 08:25 BP 94/60 02/15/24 08:25 Pulse Ox 97 02/15/24 08:25 Oxygen Delivery Method Room Air 02/15/24 08:25 BMI result Body Mass Index 39.0 Const General: healthy appearing and no acute distress Nutritional Appearance: obese Orientation/consciousness: patient oriented x3 Resp Effort & Inspection: normal respiratory effort, able to speak in complete sentences, no tracheal deviation and symmetric chest movement Auscultation: clear to auscultation bilaterally Cardio Rate: regular rate GI Inspection: Yes normal to inspection, No distended and Yes obesity Palpation (GI): Soft to palpation, not firm, nontender and No hepatosplenomegaly present Auscultation: normal bowel sounds General: Yes no CVA tenderness Back/Spine/Pelvis Back: no CVA tenderness Skin General skin exam: elasticity normal, turgor normal and dry skin Neuro General: patient oriented x3 Psych Appearance: grossly normal Mental Status: mental status grossly normal Assessment & Plan Assessment & Plan (1) Constipation: Code(s): K59.00 - Constipation, unspecified Qualifiers: Constipation type: slow transit constipation Qualified Code(s): K59.01 - Slow transit constipation (2) Hemorrhoid: Code(s): K64.9 - Unspecified hemorrhoids Qualifiers: Hemorrhoid type: unspecified Qualified Code(s): K64.9 - Unspecified hemorrhoids (3) GERD (gastroesophageal reflux disease): Code(s): K21.9 - Gastro-esophageal reflux disease without esophagitis Qualifiers: Esophagitis presence: esophagitis presence not specified Qualified Code(s): K21.9 - Gastro-esophageal reflux disease without esophagitis (4) Abdominal bloating: Code(s): R14.0 - Abdominal distension (gaseous) Plan Continue Linzess in the morning. Will add Dulcolax in the evening. Patient was encouraged to increase fluid intake and activity to promote better bowel motility. Include fiber in her diet. Continue pantoprazole every morning before breakfast. Avoid dietary triggers and late night snacking. Staying upright for minimum 3 hours after meals discussed with patient. Patient will be due to go for colonoscopy in April of 2026, sooner if clinically necessary. Patient has been doing well last lab work reviewed from January of 2024. Normal liver enzymes. Patient will follow-up in the office in 6 months, sooner on as needed basis. Patient is agreeable to this plan and verbalizes understanding of instructions. She was given the opportunity to ask questions and all questions answered. Thank you for allowing me to participate in her care Medications: New bisacodyl (Dulcolax (bisacodyl)) 10 mg (2 x 5 mg) PO BEDTIME 180 tabs 4RF Refilled pantoprazole take one tablet half an hour before breakfast 40 mg PO DAILY 90 tabs 2RF K21.9 - Gastro-esophageal reflux disease without esophagitis linaclotide (Linzess) 290 mcg PO QAM 90 caps 2RF K59.00 - Constipation, unspecified Coding Level of Care Code Est Pt Level 3 (85757) Diagnoses Slow transit constipation K59.01 Constipation type: slow transit constipation Hemorrhoids, unspecified hemorrhoid type K64.9 Hemorrhoid type: unspecified Gastroesophageal reflux disease, unspecified whether esophagitis present K21.9 Esophagitis presence: esophagitis presence not specified Abdominal bloating R14.0 Time Spent (min) 25 Comment 15 minutes spent with patient and additional 10 minutes spent reviewing her records
[2024-02-15 08:25] VITALS: BP 94/60; PULSE 74; O2SAT 97; BMI 39.0
== END 2024-02-15 08:42 | disposition home or self-care (01) ==
PROVIDERS: PCP General Practice; Visit Provider Nurse Practitioner Family
DX: K59.01 Slow transit constipation (principal); K64.9 Unspecified hemorrhoids; K21.9 Gastro-esophageal reflux disease without esophagitis; R14.0 Abdominal distension (gaseous)
CPT/HCPCS: 99213

== ENCOUNTER → 2024-02-15 08:15 | Outpatient (BNVA) | payer OTHER, SELFPAY | PROVIDERS: PCP General Practice; Visit Provider Nurse Practitioner Family | DX: K59.01 Slow transit constipation (principal); K64.9 Unspecified hemorrhoids; K21.9 Gastro-esophageal reflux disease without esophagitis; R14.0 Abdominal distension (gaseous) | CPT/HCPCS: 99212 ==

== ENCOUNTER 2024-02-20 12:03 | Outpatient (REF) | payer OTHER, SELFPAY ==
--- NOTE | ~2024-02-20 | MM_ITS ---
EXAMINATION: MM SCREENING DIGITAL BREAST TOMOSYNTHESIS, BILATERAL CLINICAL INFORMATION: Screening. Asymptomatic. COMPARISON: Mammography: This study is compared with prior exams dating back to 2013. TECHNIQUE: Digital breast tomosynthesis is performed in both the craniocaudal and mediolateral oblique views along with computer-aided detection (CAD). Synthesized 2D images are generated from the tomosynthesis. FINDINGS: The breasts are almost entirely fatty (ACR BI-RADS breast composition Category a). There are no significant masses, abnormal calcifications, or other abnormalities. MM/MM tomosynthesis screening BI IMPRESSION: No mammographic evidence of malignancy. ASSESSMENT: BI-RADS BI-RADS 1 - Negative RECOMMENDATION: Routine annual mammography screening. 1 year F/U This examination should not preclude the clinical evaluation of a suspicious palpable abnormality. This patient's information was entered into a reminder system with a target due date for their next mammogram.
== END 2024-02-20 12:04 | disposition home or self-care (01) ==
LOC: HO.MAMMO 12:03
PROVIDERS: PCP General Practice; Visit Provider General Practice
DX: Z12.31 Encounter for screening mammogram for malignant neoplasm of breast (principal)
CPT/HCPCS: 77063; 77067

== ENCOUNTER → 2024-02-20 12:15 | Outpatient (BNV) | payer OTHER, SELFPAY | PROVIDERS: PCP General Practice; Visit Provider Radiology Diagnostic Radiology | DX: Z12.31 Encounter for screening mammogram for malignant neoplasm of breast (principal) | CPT/HCPCS: 77063; 77067 ==

== ENCOUNTER 2024-04-13 08:32 | Outpatient (REF) | payer OTHER, SELFPAY | END 2024-04-13 08:33 | disposition home or self-care (01) | LOC: HO.LNP 08:32 | PROVIDERS: PCP General Practice; Visit Provider Urology | DX: Z13.9 Encounter for screening, unspecified (principal); R35.0 Frequency of micturition; R32 Unspecified urinary incontinence | CPT/HCPCS: 51798; 81003; 87086; 87147; 99202 ==

== ENCOUNTER 2024-04-13 08:32 | Outpatient (AMB) | payer OTHER, SELFPAY ==
--- NOTE | 2024-04-13 08:34 | MHC.OFFVIS ---
Intake Visit Reasons: urinary incontinence/PVR Intake Note: Wanda is a 53 year old female who presents to the office today for urinary incontinence/PVR. Urology Meds:Oxybutynin Blood thinners:None PVR:0ml Allergies oxycodone [From PERCOCET] Allergy (Unknown, Verified 04/13/24 08:35) NAUSEA, DIZZINESS acetaminophen [Percocet] Adverse Reaction (Unknown, Verified 04/13/24 08:35) agitation, hallucinations HPI Comments Details: Wanda 53 y/o is here with complaints of urinary leakage, she states she leaks with coughing, laughing, also has urinary frequency. She is on oxybutynin 10 mg daily and states medication does not help. She states was also given a different medication before the oxybutynin (doesn't remember the name) which did not help. h/o x 3, largest baby 7.1 lbs. CoMorbidity - Obesity, constipation, she is followed by GI, for constipation and hemrrhoids, she is on linzess and duculax. Review of chart - CTAP last year 02/2023- kidneys wnL. Discussed further evaluation with urod. [facility] Medical History COPD (chronic obstructive pulmonary disease) Surgical History History of esophagogastroduodenoscopy (EGD) Hx of colonoscopy Previous section Family History Mother Arteriosclerosis of bypass graft of coronary artery Alzheimer disease Father No problems noted. Social History Alcohol intake: never Patient Tobacco Use Status: Current everyday Tobacco user Tobacco use type: Cigarette Cigarettes Per Day: 6 Current occupational status: employed Current occupation: right handed Review of Systems Const All systems reviewed & are unremarkable except as noted in HPI and below Reports no additional complaints Eyes Reports no additional complaints ENT Reports no additional complaints Card Reports no additional complaints Resp Reports no additional complaints GI Reports no additional complaints Reports as per HPI Musc Reports no additional complaints Skin/Breast Reports system reviewed and no additional complaints, except as documented Neuro Reports no additional complaints Psych Reports no additional complaints Endo Reports no additional complaints Catalino/Lymph Reports no additional complaints Aller/Immun Reports no additional complaints Physical Exam Const General: cooperative, healthy appearing and no acute distress Nutritional Appearance: overweight Orientation/consciousness: patient oriented x3 HEENT Head: Yes normal to inspection, Yes normocephalic and Yes atraumatic Eyes Conjunctivae: conjunctivae normal Neck Neck: Yes normal visual inspection and Yes trachea midline Chest Chest palpation & inspection: normal inspection of the chest Resp Effort & Inspection: normal respiratory effort Cardio Jugular venous distension: no JVD GI Inspection: Yes normal to inspection Skin General skin exam: no rashes or lesions noted Neuro General: patient oriented x3 Extrem General: No edema Psych Appearance: grossly normal Office Procedures Post Void Residual Post Residual Void Post Void Residual (PVR): 0 [id number] Void Residual by ultrasound Results AMB Urinalysis, Automated UA Leukoctes 0 Margarita/uL Last Edit by Clarice Cheatham CMA on 04/13/24 08:51 UA Nitrite Negative Last Edit by Clarice Cheatham CMA on 04/13/24 08:51 UA Urobilinogen 0.2 mg/dL Last Edit by Clarice Cheatham CMA on 04/13/24 08:51 UA Protein 15 mg/dL Last Edit by Clarice Cheatham CMA on 04/13/24 08:51 UA pH 5.0 Last Edit by Clarice Cheatham CMA on 04/13/24 08:51 UA Blood 10 Arturo/uL Last Edit by Clarice Cheatham CMA on 04/13/24 08:51 UA Specific Cash 1.030 Last Edit by Clarice Cheatham CMA on 04/13/24 08:51 UA Ketone Positive Last Edit by Clarice Cheatham CMA on 04/13/24 08:51 UA Bilirubin 0 mg/dL Last Edit by Clarice Cheatham CMA on 04/13/24 08:51 UA Glucose 0 mg/dL Last Edit by Clarice Cheatham CMA on 04/13/24 08:51 Results Reviewed Results Reviewed: Laboratory Last Values Urine pH (Auto) 5.0 04/13/24 08:47 Specific Cash (Auto) 1.030 04/13/24 08:47 Urine Protein (Auto) 15 mg/dL 04/13/24 08:47 Glucose (UA)(Auto) 0 mg/dL 04/13/24 08:47 Urine Ketones (Auto) Positive 04/13/24 08:47 Urine Blood (Auto) 10 Arturo/uL 04/13/24 08:47 Urine Nitrite (Auto) Negative 04/13/24 08:47 Urine Bilirubin (Auto) 0 mg/dL 04/13/24 08:47 Urine Urobilinogen (Auto) 0.2 mg/dL 04/13/24 08:47 Leukocyte Esterase (Auto) 0 Margarita/uL 04/13/24 08:47 02/27/23 EXAMINATION: CT ABDOMEN AND PELVIS WITH CONTRAST CLINICAL INFORMATION: Left-sided abdominal pain COMPARISON: None available. TECHNIQUE: Multidetector volumetric images were obtained from the superior aspect of the liver through the pubic symphysis following administration 85 mL of Omnipaque 350 intravenous contrast. Sagittal and coronal reformatted images were obtained on the technologist's workstation. Oral contrast: No This CT examination was performed using dose optimization techniques as appropriate, variously including the following: *Automated exposure control *Adjustment of mA and/or kV according to patient size (this includes techniques or standardized protocols for targeted exams where dose is matched to indication/reason for exam; i.e. extremities or head) *Use of iterative reconstruction technique DLP: 723 mGy-cm FINDINGS: LUNG BASES: The visualized lung bases are unremarkable. LIVER, GALLBLADDER, AND BILIARY TREE: The liver is normal in size, shape, and attenuation. No focal hepatic lesion or biliary ductal dilatation is present. The gallbladder is unremarkable with no evidence of radiopaque gallstones, gallbladder wall thickening, or obvious pericholecystic inflammatory changes. PANCREAS: Unremarkable. SPLEEN: Unremarkable. ADRENAL GLANDS: Unremarkable. KIDNEYS AND URETERS: The kidneys are normal in size, shape, and attenuation. No hydronephrosis, hydroureter, or calculi seen. No perinephric stranding. BLADDER: Unremarkable. GASTROINTESTINAL TRACT: There are several dilated small bowel loops in left midabdomen without any mural thickening. There is small bowel feces sign present in some of the segments of small bowel. Mild dilatation of the proximal duodenum is noted as well. There is a mural thickening involving small bowel loops. There is a transition noted on axial image 32/3 through 45/3. The stomach is nondilated. The ileal loops appear normal caliber. There is scattered colonic diverticulosis, most prominent sigmoid region without mural thickening or fat stranding. Appendix is normal caliber. No inflammatory process seen in the peritoneum. No free fluid. ABDOMINAL WALL: Small lumbar canal hernia containing fat. LYMPH NODES: Normal. VASCULAR: Unremarkable. PELVIC VISCERA: The uterus is anteverted and unremarkable. No adnexal mass or free fluid. OSSEOUS STRUCTURES: Mild ventral spondylosis lower dorsal and upper lumbar spine. Small sclerotic lesion L5 L2 and L1 vertebra. IMPRESSION: Multiple dilated proximal small bowel loops in left midabdomen with mural thickening suggestive of an tendinitis. Rest of the small bowel loops and stomach is unremarkable Colonic diverticulosis without diverticulitis. Assessment & Plan Assessment & Plan (1) Urinary frequency: Code(s): R35.0 - Frequency of micturition Category: Medical (2) Urinary incontinence: Code(s): R32 - Unspecified urinary incontinence Category: Medical Plan Schedule Urodynamics. Orders: Orders AMB Post Void Residual by ultrasound Today R32 - Unspecified urinary incontinence AMB Urinalysis Automated Today Z13.9 - Encounter for screening, unspecified Urine Culture Today Z13.9 - Encounter for screening, unspecified Patient Instructions: The patient had an opportunity to ask questions regarding treatment plan. The patient expressed understanding and agreement with the above treatment plan. The patient is aware they should contact our office by phone for worsening of their current condition or the appearance of new symptoms. Compliance is encouraged with any medications and followup testing that is ordered. It is a privilege to be allowed the opportunity to participate in the urologic care of your patient. If you have any questions or concerns regarding treatment for the above conditions please do not hesitate to contact me. The office telephone contact is [phone]. This note is constructed in part using voice recognition software. While every effort has been made to ensure accuracy bonding supervisor errors may have been included. Yours sincerely, Jasiel Chan MD Coding Level of Care Code New Pt Level 4 (84714) Diagnoses Urinary frequency R35.0 Urinary incontinence R32 CPT Codes Post Residual Void - PVR CPT Code: 61941-Dsfh Void Residual by ultrasound ([id number])
== END 2024-04-13 09:51 | disposition home or self-care (01) ==
PROVIDERS: PCP General Practice; Visit Provider Urology
DX: R35.0 Frequency of micturition (principal); R32 Unspecified urinary incontinence; Z13.9 Encounter for screening, unspecified
CPT/HCPCS: 99204

== ENCOUNTER 2024-05-01 07:59 | Outpatient (AMB) | payer OTHER, SELFPAY ==
--- NOTE | 2024-05-01 08:18 | AM.OFFVISNUR ---
Intake Visit Reasons: UA/Urodynamics Allergies oxycodone [From PERCOCET] Allergy (Unknown, Verified 04/13/24 08:35) NAUSEA, DIZZINESS acetaminophen [Percocet] Adverse Reaction (Unknown, Verified 04/13/24 08:35) agitation, hallucinations Nursing Note patient presents to office for UA for urodynamics procedure. Patient ab le to give sample, UA done no indication of infection will send urine for culture Results AMB Urinalysis, Automated UA Leukoctes 0 Margarita/uL Last Edit by Riaz Li LPN on 05/01/24 08:18 UA Nitrite Negative Last Edit by Riaz Li LPN on 05/01/24 08:18 UA Urobilinogen 0 mg/dL Last Edit by Riaz Li LPN on 05/01/24 08:18 UA Protein 0 mg/dL Last Edit by Riaz Li LPN on 05/01/24 08:18 UA pH 5.0 Last Edit by Riaz Li LPN on 05/01/24 08:18 UA Blood 10 Arturo/uL Last Edit by Riaz Li LPN on 05/01/24 08:18 UA Specific [place] 1.025 Last Edit by Riaz Li LPN on 05/01/24 08:18 UA Ketone Negative Last Edit by Riaz Li LPN on 05/01/24 08:18 UA Bilirubin 0 mg/dL Last Edit by Riaz Li LPN on 05/01/24 08:18 UA Glucose 0 mg/dL Last Edit by Riaz Li LPN on 05/01/24 08:18 Assessment & Plan Assessment & Plan Orders: Orders Urine Culture Today R32 - Unspecified urinary incontinence, R35.0 - Frequency of micturition AMB Urinalysis Automated Today R32 - Unspecified urinary incontinence, R35.0 - Frequency of micturition
== END 2024-05-01 08:33 | disposition home or self-care (01) ==
PROVIDERS: PCP General Practice; Visit Provider Urology
DX: R32 Unspecified urinary incontinence (principal); R35.0 Frequency of micturition

== ENCOUNTER 2024-05-01 07:59 | Outpatient (REF) | payer OTHER, SELFPAY | END 2024-05-01 08:00 | disposition home or self-care (01) | LOC: HO.LAB 07:59 | PROVIDERS: PCP General Practice; Visit Provider Urology | DX: R32 Unspecified urinary incontinence (principal); R35.0 Frequency of micturition | CPT/HCPCS: 81003; 87086 ==

== ENCOUNTER 2024-05-11 08:03 | Outpatient (AMB) | payer OTHER, SELFPAY ==
--- NOTE | 2024-05-11 08:04 | A.OFFVIS_ITS ---
Intake Visit Reasons: Urodynamics Intake Note: Wanda is a 53 year old female who presents to the office today for Urodynamics Urology Meds:Oxybutynin, currently not taking Blood thinners:None Allergies oxycodone [From PERCOCET] Allergy (Unknown, Verified 05/11/24 08:04) NAUSEA, DIZZINESS acetaminophen [Percocet] Adverse Reaction (Unknown, Verified 05/11/24 08:04) agitation, hallucinations HPI Comments Details: 05/11/24--Wanda is a 54 y/o female who complains of urgency and leakage with coughing. CMG parameters detailed below. Interpretation: During the filling phase there was normal sensation, sensory urgency was noted, with uninhibited detrusor contraction. Leakage was observed during valsalva stress with low leak point pressure. Findings consistent with ISD, and detrusor overactivity was observed. EMG- Appropriate changes in the waveforms were noted through out the study. There was a decrease in the EMG activity during the voiding c/w normal function of the pelvic floor. Discussed results with patient, will address ISD problem - discussed bulking urethral procedure versus sling procedures with mesh or autologous. Risks and benefits reviewed including but not limited to infection, bleeding, mesh erosion, urinary retention, need for other procedures. The patient understands that other therapy may be needed if detrusor instability with bothersome urinary symptoms persist. 20 minutes spent in review of records pertaining to this visit and including [id number] discussion with the patient and documentation of this visit. Review of chart: 04/13/24--Wanda 53 y/o is here with complaints of urinary leakage, she states she leaks with coughing, laughing, also has urinary frequency. She is on oxybutynin 10 mg daily and states medication does not help. She states was also given a different medication before the oxybutynin (doesn't remember the name) which did not help. h/o x 3, largest baby 7.1 lbs. CoMorbidity - Obesity, constipation, she is followed by GI, for constipation and hemrrhoids, she is on linzess and duculax. Review of chart - CTAP last year 02/2023- kidneys wnL. Discussed further evaluation with urod. [facility] Medical History COPD (chronic obstructive pulmonary disease) Surgical History History of esophagogastroduodenoscopy (EGD) Hx of colonoscopy Previous section Family History Mother Arteriosclerosis of bypass graft of coronary artery Alzheimer disease Father No problems noted. Social History Alcohol intake: never Patient Tobacco Use Status: Current everyday Tobacco user Tobacco use type: Cigarette Cigarettes Per Day: 6 Current occupational status: employed Current occupation: right handed Office Procedures Urodynamic Studies Consent Discussed risk and benefit or proposed procedure with the patient. Information consent for procedure given to the patient. Discussed technical aspects, risks, benefits and alternatives in full. Addressed all of the patient's questions and concerns regarding the procedure. The patient demonstrated knowledge and understanding. They wish to proceed with this procedure. Preparation The patient was prepped in the usual manner. A membership sales advisor was present and in the room. Genitalia was prepped with betadine solution in a sterile manner. Procedure Complex Uroflow Complex uroflow performed by: Jasiel Chan Maximum urinary flow rate (mL/second): 56 Voiding time (seconds): 61 Voided volume (mL): 643 Residual urine (mL): 0 Cystometrogram Vaginal/rectal catheter type: vaginal First sensation at (mL): mL First desire at (mL): 53 mL Peak detrussor pressure with Stress Test (mL) 6.6 Voided with max detrussor pressure of (cm H2O): 19 Maximum flow rate (mL/second): 296 mL/s 19316-Jrhztlikaltehq w/ WOOD HEEL FLAP TRIMMER 57180-Ozkiyfi-Mycgacdshkej First 88532-Xszb/Urinary Muscle Study 56456-Doqfy-Dvkfqyjxt Pressure Test Procedure code (CPT) selection complete Office Meds nitrofurantoin monohydrate/macrocrystals 100 mg capsule Performing Provider: Jasiel Chan MD [facility] Administered by: Riaz Li LPN on 05/11/24 08:42 Dose Route Admin Location Dispensed Lot Number Expiration Date NDC Blow Machine Tender Starch Spraying 100 mg PO 1 cap Assessment & Plan Assessment & Plan (1) Intrinsic sphincter deficiency (ISD): Code(s): N36.42 - Intrinsic sphincter deficiency (ISD) Category: Medical (2) CESIA (stress urinary incontinence, female): Code(s): N39.3 - Stress incontinence (female) (male) Category: Medical (3) Detrusor overactivity: Code(s): N32.81 - Overactive bladder Category: Medical Plan pubovaginal sling with mesh, cystoscopy Orders: Orders AMB Urodynamics Studies Today R32 - Unspecified urinary incontinence, R35.0 - Frequency of micturition Patient Instructions: The patient had an opportunity to ask questions regarding treatment plan. The patient expressed understanding and agreement with the above treatment plan. The patient is aware they should contact our office by phone for worsening of their current condition or the appearance of new symptoms. Compliance is encouraged with any medications and followup testing that is ordered. It is a privilege to be allowed the opportunity to participate in the urologic care of your patient. If you have any questions or concerns regarding treatment for the above conditions please do not hesitate to contact me. The office telephone contact is [phone]. This note is constructed in part using voice recognition software. While every effort has been made to ensure accuracy instructional facilitator errors may have been included. Yours sincerely, Jasiel Chan MD Coding Level of Care Code Est Pt Level 3 (95588) Diagnoses Intrinsic sphincter deficiency (ISD) N36.42 CESIA (stress urinary incontinence, female) N39.3 Detrusor overactivity N32.81 CPT Codes Urodynamic Studies - CPT: 72814-Lvyprgboxvsqqw w/ WOOD HEEL FLAP TRIMMER ([id number]) Urodynamic Studies - CPT: 77786-Mmycsou-Ycwrzhihswpd First ([id number]) Urodynamic Studies - CPT: 66266-Wwhg/Urinary Muscle Study ([id number]) Urodynamic Studies - CPT: 12053-Qhrni-Dvhgobwpw Pressure Test ([id number]) Comment
== END 2024-05-11 09:46 | disposition home or self-care (01) ==
PROVIDERS: PCP General Practice; Visit Provider Urology
DX: N36.42 Intrinsic sphincter deficiency (ISD) (principal); N39.3 Stress incontinence (female) (male); N32.81 Overactive bladder; R32 Unspecified urinary incontinence; R35.0 Frequency of micturition
CPT/HCPCS: 51728; 51741; 51784; 51797; 99213

== ENCOUNTER → 2024-05-11 08:03 | Outpatient (BNVA) | payer OTHER, SELFPAY | PROVIDERS: PCP General Practice; Visit Provider Urology | DX: N36.42 Intrinsic sphincter deficiency (ISD) (principal); N39.3 Stress incontinence (female) (male); N32.81 Overactive bladder | CPT/HCPCS: 51728; 51741; 51784; 51797; 99212 ==

== ENCOUNTER 2024-05-22 05:55 | Day surgery (SDC) | payer OTHER, SELFPAY ==
--- NOTE | 2024-05-21 09:30 | P.CONAN_ITS ---
Documented by User: Yasmin Ayala NP 05/21/24 09:31 HPI - Anesthesia Eval Consult details Narrative: 54yo F for Cystoscopy and pubo vaginal sling w/mesh PMFSH Active Problems Active Problems: All Active Problems Detrusor overactivity (Acute) CESIA (stress urinary incontinence, female) (Acute) Intrinsic sphincter deficiency (ISD) (Acute) Urinary incontinence (Acute) Urinary frequency (Acute) Degenerative tear of meniscus (Acute) Patellofemoral arthritis of right knee (Acute) Acute meniscal tear of right knee (Acute) Right knee pain (Acute) Past Medical History Medical History COPD (chronic obstructive pulmonary disease) Family History Family History Mother Arteriosclerosis of bypass graft of coronary artery Alzheimer disease Father No problems noted. Family history of problems with anesthesia: No Surgical History Surgical History History of esophagogastroduodenoscopy (EGD) Hx of colonoscopy Previous section History of Problems with Anesthesia: No Social History Social History Are you a primary rehab care assistant to a significant other at home: No Do you presently have visiting nurse or other home services: No Alcohol intake: never Patient Tobacco Use Status: Current everyday Tobacco user Tobacco use type: Cigarette Cigarette Packs Per Day: 0.5 Cigarettes Per Day: 10.0 Smoked in Last 30 Days: Yes Use of substances other than those prescribed or required for medical reasons: No Are you DNR?: No Advance Directives: No Advance Directives Information Provided: Yes Recently lost weight without trying: No Nutrition Risks: No Nutritional Risk Patient : No Current occupational status: employed Current occupation: right handed Meds Allergies Allergy/AdvReac Type Severity Reaction Status Date / Time oxycodone [From PERCOCET] Allergy Unknown NAUSEA, Verified 05/11/24 08:04 DIZZINESS acetaminophen [Percocet] AdvReac Unknown agitation, Verified 05/11/24 08:04 hallucinations Home Medications ?Medication ?Instructions ?Recorded ?Confirmed ?Last Taken ?Type bupropion HCl 75 mg tablet 75 mg PO BID 02/15/24 05/22/24 Unknown History estradiol 0.01% (0.1 mg/gram) vaginal 02/15/24 Unknown History vaginal cream oxybutynin chloride 10 mg 10 mg PO DAILY 02/15/24 05/22/24 Unknown History tablet,extended release 24 hr topiramate 25 mg tablet 25 mg PO DAILY 02/15/24 Unknown History Exam Pertinent Lab Results Pertinent Lab Results: Laboratory Tests 02/26/23 01/27/24 21:41 15:34 WBC 9.8 Hgb 15.3 Hct 44.9 Plt Count 222 Sodium 144 140 Potassium 3.8 4.2 Chloride 110 H Carbon Dioxide 23 BUN 11 Creatinine 0.79 Assessment and Plan Assessment Anesthesia Assessment: Chart Reviewed Final Anesthetic Review Family History of Problems with Anesthesia: No History of Problems with Anesthesia: No Documented by User: Jamey Leo MD 05/22/24 07:27 [facility] Past Medical History Medical History COPD (chronic obstructive pulmonary disease) Family History Family History Mother Arteriosclerosis of bypass graft of coronary artery Alzheimer disease Father No problems noted. Surgical History Surgical History History of esophagogastroduodenoscopy (EGD) Hx of colonoscopy Previous section Social History Social History Are you a primary rehab care assistant to a significant other at home: No Do you presently have visiting nurse or other home services: No Alcohol intake: never Patient Tobacco Use Status: Current everyday Tobacco user Tobacco use type: Cigarette Cigarette Packs Per Day: 0.5 Cigarettes Per Day: 10.0 Smoked in Last 30 Days: Yes Use of substances other than those prescribed or required for medical reasons: No Are you DNR?: No Advance Directives: No Advance Directives Information Provided: Yes Recently lost weight without trying: No Nutrition Risks: No Nutritional Risk Patient : No Current occupational status: employed Current occupation: right handed Meds Allergies Allergy/AdvReac Type Severity Reaction Status Date / Time oxycodone [From PERCOCET] Allergy Unknown NAUSEA, Verified 05/11/24 08:04 DIZZINESS acetaminophen [Percocet] AdvReac Unknown agitation, Verified 05/11/24 08:04 hallucinations Home Medications ?Medication ?Instructions ?Recorded ?Confirmed ?Last Taken ?Type bupropion HCl 75 mg tablet 75 mg PO BID 02/15/24 05/22/24 Unknown History estradiol 0.01% (0.1 mg/gram) vaginal 02/15/24 Unknown History vaginal cream oxybutynin chloride 10 mg 10 mg PO DAILY 02/15/24 05/22/24 Unknown History tablet,extended release 24 hr topiramate 25 mg tablet 25 mg PO DAILY 02/15/24 Unknown History Exam Airway Mallampati Class: II TM Dist: <=3cm Neck ROM: Full Loose/Missing/Broken Teeth: No Heart: ok Lungs: ok Assessment and Plan Assessment Anesthesia Assessment: Anesthesia Plan Discussed Final Anesthetic Review NPO: Yes ASA Class: II Final Preanesthetic Review: No Changes in Pt Med Stat, Meds/Allgs Chart Reviewed, Consent Obtained/Reviewed and Anes Risks/Benef Reviewed Patient Risk: Intermediate Procedure Risk: Low Anesthetic Plan Anesthetic Plan: GA and Agree w/ Assess. and Plan Disposition: Standard PACU
[2024-05-22] VITALS (16 sets, daily range): BP systolic 96–120; BP diastolic 53–80; PULSE 58–80; RESP 16–22; TEMP 36.1–36.8; O2SAT 94–99; BMI 39.4
[2024-05-22] MEDS: Lactated Ringers 1,000 ML 100 ML IVCONT ×2 (06:53→14:01)
--- NOTE | 2024-05-22 07:21 | MHC.SHP ---
Pre-Procedural Eval Section A - 24 Hr Update-Section A only Date of Service: 05/22/24 The patient is an INPATIENT: No The patient has been examined within 24 hours of the surgical procedure. The History & Physical has been completed within 30 days and I have reviewed it.: Yes Section B - Complete if H&P > 30 days Chief Complaint: Stress urinary incontinence, pelvic floor weakness Allergies: Allergies Allergy/AdvReac Type Severity Reaction Status Date / Time oxycodone [From PERCOCET] Allergy Unknown NAUSEA, Verified 05/11/24 08:04 DIZZINESS acetaminophen [Percocet] AdvReac Unknown agitation, Verified 05/11/24 08:04 hallucinations Plan Diagnosis/Plan: Unchanged I have reviewed the history and physical and performed a pertinent physical examination on my patient. No changes have occurred unless specified. Pubovaginal sling, mesh, cystoscopy. Time Spent With Patient Time: Total time managing care of this patient today ____ minutes.
--- NOTE | 2024-05-22 09:49 | P.OP_ITS ---
Operative Note Operative Note Date of Service: 05/22/24 Narrative: Preop diagnosis: Stress urinary incontinence/intrinsic sphincter deficiency Postop diagnosis: Stress urinary incontinence/intrinsic sphincter deficiency Procedure: Pubovaginal sling with mesh, Lynx-retropubic approach, cystoscopy Surgeon: Dr. Jasiel Chan Anesthesia: General Procedure: The patient was brought into the operating room placed on the OR table in supine position general anesthesia was instituted the patient was intubated. The patient was placed in lithotomy position prepped and draped in the usual sterile fashion. A time-out was done per protocol. Antibiotics confirmed. A weighted vaginal speculum along with a [employer] retractor was used to obtain adequate visualization of the introitus. An 18 fr milan was placed. A marking pen was used to lesly the bladder neck. 1% lidocaine with epinephine was infiltrated into the anterior vaginal wall. A longitudinal incision was made at the mid urethra with a 15 blade knife and rosalba were used to extend the incision laterally towards the retropubic space. Attention was taken at the pubic bone and a small incision was made 2 cm lateral to the midline of the pubic bone on the right and left side. The trochar for the [employer] system was passed behind the pubic bone on the right and left side with finger guidance vaginally. Cystoscopy was done, there was no injury to the bladder and there was efflux of urine from both ureteral orifices. The cystoscope was removed and the milan was replaced. The sling was attached to each trochar and brought retrograde to the abdominal side. The sling was adjusted without tension, the redundant sling was cut at the abdominal side. The vaginal incision was copiously irrigated. The incision was closed with 2-0 Vicryl, the Milan was left to gravity drainage. The pubic incisions were closed with 4 0 Monocryl. EBL: 100 mL Complications: None Drains: 18 Cambodian Milan
[2024-05-22] MEDS: Acetaminophen 325 MG TABLET 650 MG PO (10:37)
[2024-05-22] MEDS: 0.9 % Sodium Chloride Flush 3 ML SYRINGE IVFLUSH (14:01)
[2024-05-22] MEDS: HYDROmorphone HCl 2 MG TABLET PO (14:39)
--- NOTE | 2024-05-22 18:00 | PC.NURSE ---
pt gold , holding on to her lower abdomen ,stated her pain is #12 lo lower abdomen and the milan cath inserton site . Medicated with Dilauded 4 mg po
[2024-05-23] MEDS: Lactated Ringers 1,000 ML 100 ML IVCONT (00:03)
[2024-05-23] MEDS: 0.9 % Sodium Chloride Flush 3 ML SYRINGE IVFLUSH (00:09)
[2024-05-23] MEDS: HYDROmorphone HCl 2 MG TABLET PO ×2 (00:11→11:03)
[2024-05-23] MEDS: Melatonin 3 MG TABLET 6 MG PO (00:11)
[2024-05-23] MEDS: Calcium Carbonate 750 MG TAB.CHEW PO (00:11)
[2024-05-23 04:00] VITALS: BP 104/74; PULSE 71; RESP 18; TEMP 36.8; O2SAT 95
--- NOTE | 2024-05-23 06:39 | PC.NURSE ---
Assumed care of patient since 1844 on 05/22/24. Patient is AAOX4. POD#1 bladder sling. C/O gas pain, pelvis/abdomen pain. Medicated with 750 mg po TUMS, 2 mg po hydromorphone with good relief. Melatonin 6 mg po given for insomnia. LR infusing at 100 ml/hr. Alberto catheter removed at 0630. 500 ml of clear, yellow urine emptied. Patient is due to void around 1230 pm.
[2024-05-23 07:38] VITALS: BP 126/73; PULSE 69; RESP 19; TEMP 36.4; O2SAT 93
--- NOTE | 2024-05-23 09:32 | P.DS_ITS ---
DS: Providers Provider Date of Service: 05/23/24 Date of discharge: 05/23/24 Primary care physician: Jennifer Mcconnell MD Attending physician on admission: Jasiel Chan Attending physician on discharge: Jasiel Chan DS: Diagnosis Discharge Diagnosis (1) CESIA (stress urinary incontinence, female): Start date: 05/23/24 Status: Acute (2) Intrinsic sphincter deficiency (ISD): Status: Acute DS: Summary Hospital Course Hospital Course: Wanda was admitted for extended stay following elective pubovaginal sling for 05/22/24. Alberto and vaginal packing removed in AM on 05/23/24, pt voiding 300 mL. Status at Discharge Cognitive/behavioral status at discharge: stable Functional status at discharge: independent ambulation Overall status at discharge: patient is back to baseline Time Attestation Total time managing care of this patient today: 35 mintues. Discharge Coordination Time (in mins): 35 min Quality: Safe Use of Opioids Does Pt have an Active Cancer Diagnosis on the Problem List?: No Quality: Stroke Does the patient have a stroke diagnosis?: No Physical Exam Vital Signs: Vital Signs: Last Vital Signs Temp 97.6 F 05/23/24 07:38 Pulse 69 05/23/24 07:38 Resp 19 05/23/24 07:38 BP 126/73 05/23/24 07:38 Pulse Ox 93 05/23/24 07:38 O2 Del Method Room Air 05/23/24 07:38 O2 Flow Rate 4 05/22/24 10:15 BMI result Body Mass Index 39.4 Discharge Plan Discharge Patient Disposition: Home, Self-Care Referrals: Jennifer Mcconnell MD [Primary Care Provider] - 1 Week Discharge Medications: New cefdinir 300 mg capsule 300 mg PO BID 3 Days Qty: 6 0RF hydromorphone [Dilaudid] 2 mg tablet 2 mg PO .q6h - q8h PRN (Reason: pain) Qty: 8 0RF Rx Instructions: Partial Fill upon patient request. Continued hydrocortisone [Proctosol HC] 2.5 % cream with perineal applicator 1 appl IN BID-QID PRN (Reason: hemorrhoids) Qty: 30 2RF bupropion HCl 75 mg tablet 75 mg PO BID estradiol 0.01 % (0.1 mg/gram) cream vaginal topiramate 25 mg tablet 25 mg PO DAILY bisacodyl [Dulcolax (bisacodyl)] 5 mg tablet,delayed release (DR/EC) 10 mg PO BEDTIME Qty: 180 4RF pantoprazole 40 mg tablet,delayed release (DR/EC) 40 mg PO DAILY Qty: 90 2RF Rx Instructions: take one tablet half an hour before breakfast Linzess 290 mcg capsule 290 mcg PO QAM Qty: 90 2RF Discontinued oxybutynin chloride 10 mg tablet extended release 24hr 10 mg PO DAILY Discharge Orders: Discharge Order (Routine); Ordered 05/23/24 Ordered By: Jasiel Chan Diet: Advance to usual diet Activity on Discharge: no lifting over 20 pounds for 3 weeks, no strenuous exercising. Activity Restrictions/Additional Instructions: Important no pushing for bowel movements. Print Language: Panamanian
--- NOTE | 2024-05-23 10:58 | MHC.CM.PN ---
Pt self-care, lives at home with her boyfriend. Pts daughter will transport her home. Educated on HCP, declined at this time. PCP: Dr. Jennifer Mcconnell
--- NOTE | 2024-05-23 11:04 | PC.NURSE ---
urinated 300 ml in am and then 100 ml in 2 hrs , ambulated on the hallway , stated that she is passing flatus, positive BS all 4 quad
--- NOTE | 2024-05-23 13:04 | MHC.CM.PN ---
Pt is medically cleared for discharge home self-care, pts daughter to transport her home.
--- NOTE | 2024-05-23 13:06 | PC.NURSE ---
urinated 150 ml urine now , no bleeding ,
--- NOTE | 2024-05-24 09:11 | HO.POSTANES ---
Post Anesthesia Evaluation Post Anesthesia Evaluation Date of Service: 05/22/24 Anesthesia: General Mental Status: Awake Pain Control: Satisfactory Nausea/Vomiting: None Hydration: Adequate Anesthesia-Related Issues: No Anes. Related Issues
== END 2024-05-23 13:30 | disposition home or self-care (01) ==
LOC: HO.SSS 10:18 → HO.IMC 13:31
PROVIDERS: PCP General Practice; Visit Provider Urology
PROC: (CPT 57288; principal; 2024-05-22 07:30)
DX: N39.3 Stress incontinence (female) (male) (principal); N36.42 Intrinsic sphincter deficiency (ISD); N81.82 Incompetence or weakening of pubocervical tissue; J44.9 Chronic obstructive pulmonary disease, unspecified; Z79.899 Other long term (current) drug therapy; Z88.5 Allergy status to narcotic agent; F17.210 Nicotine dependence, cigarettes, uncomplicated
CPT/HCPCS: 57288; 87086; C1758; C1771; J0690; J2405; J2704; J2795; J3010; J7120

== ENCOUNTER → 2024-05-22 05:55 | Outpatient (BNV) | payer OTHER, SELFPAY | PROVIDERS: PCP General Practice; Visit Provider Urology | DX: N39.3 Stress incontinence (female) (male) (principal); N36.42 Intrinsic sphincter deficiency (ISD) | CPT/HCPCS: 57288; 99024 ==

== ENCOUNTER → 2024-05-28 13:37 | Outpatient (BNVA) | payer OTHER, SELFPAY | PROVIDERS: PCP General Practice; Visit Provider Urology | DX: N32.81 Overactive bladder (principal); N36.42 Intrinsic sphincter deficiency (ISD); N39.3 Stress incontinence (female) (male) | CPT/HCPCS: 51798 ==

== ENCOUNTER 2024-06-15 09:08 | Outpatient (REF) | payer OTHER, SELFPAY | END 2024-06-15 09:09 | disposition home or self-care (01) | LOC: HO.LNP 09:08 | PROVIDERS: PCP General Practice; Visit Provider Urology | DX: N39.0 Urinary tract infection, site not specified (principal); Z13.9 Encounter for screening, unspecified | CPT/HCPCS: 51798; 81003; 87086; 99212 ==

== ENCOUNTER 2024-06-15 09:08 | Outpatient (AMB) | payer OTHER, SELFPAY ==
--- NOTE | 2024-06-15 09:21 | MHC.OFFVIS ---
Intake Visit Reasons: Pubovaginal sling w/ mesh- f/u Intake Note: Patient is present for PUBOVAGINAL SLING W/MESH F/U Urology Medication:DILAUDID, CEFDINIR Antibiotic Allergy:NONE Blood Thinner:NONE TODAY'S PVR: 0ML'S Structural Analyst Required: No Allergies oxycodone [From PERCOCET] Allergy (Unknown, Verified 06/15/24 09:23) NAUSEA, DIZZINESS acetaminophen [Percocet] Adverse Reaction (Unknown, Verified 06/15/24 09:23) agitation, hallucinations Medication List - Last Reconciled 06/15/24 by Jasiel Chan MD bisacodyl (Dulcolax (bisacodyl)) 10 mg (2 x 5 mg) PO BEDTIME bupropion HCl 75 mg PO BID cefdinir 300 mg PO BID 3 days estradiol 0.01%(0.1mg/gram) vaginal hydrocortisone 2.5% (Proctosol HC) 1 appl MS BID-QID PRN hydromorphone (Dilaudid) 2 mg PO .q6h - q8h PRN linaclotide (Linzess) 290 mcg PO QAM pantoprazole 40 mg PO DAILY topiramate 25 mg PO DAILY HPI Comments Details: s/p pubovaginal sling- 05/22/24-- states she is doing well, describes ocassional bladder discomfort in the bladder which sounds like a bladder spasm. States no urinary leakage. Good urine stream. Counselled on maintaining good bowel regimen, avoid constipation. Exam - pubic incisions well healed, vaginal incision healing well. Will send surveillance urine c/s [facility] Medical History COPD (chronic obstructive pulmonary disease) Surgical History History of esophagogastroduodenoscopy (EGD) Hx of colonoscopy Previous section Family History Mother Arteriosclerosis of bypass graft of coronary artery Alzheimer disease Father No problems noted. Social History Household Members: Spouse Housing: Apartment Are you a primary furnace caretaker to a significant other at home: No Do you presently have visiting nurse or other home services: No Alcohol intake: never Patient Tobacco Use Status: Current everyday Tobacco user Tobacco use type: Cigarette Cigarette Packs Per Day: 0.5 Cigarettes Per Day: 10 service: No Current occupational status: employed Current occupation: right handed Review of Systems Const All systems reviewed & are unremarkable except as noted in HPI and below Reports no additional complaints Eyes Reports no additional complaints ENT Reports no additional complaints Card Reports no additional complaints Resp Reports no additional complaints GI Reports no additional complaints Reports as per HPI Musc Reports no additional complaints Skin/Breast Reports system reviewed and no additional complaints, except as documented Neuro Reports no additional complaints Psych Reports no additional complaints Endo Reports no additional complaints Catalino/Lymph Reports no additional complaints Aller/Immun Reports no additional complaints Office Procedures Post Void Residual Post Residual Void Post Void Residual (PVR): 0 61282-Iuul Void Residual by ultrasound Results AMB Urinalysis, Automated UA Leukoctes 0 Margarita/uL Last Edit by LETY Magana on 06/15/24 09:44 UA Nitrite Negative Last Edit by LETY Magana on 06/15/24 09:44 UA Urobilinogen 0.2 mg/dL Last Edit by LETY Magana on 06/15/24 09:44 UA Protein 15 mg/dL Last Edit by LETY Magana on 06/15/24 09:44 UA pH 5.5 Last Edit by LETY Magana on 06/15/24 09:44 UA Blood 10 Arturo/uL Last Edit by LETY Magana on 06/15/24 09:44 UA Specific [place] 1.025 Last Edit by LETY Magana on 06/15/24 09:44 UA Ketone Negative Last Edit by LETY Magana on 06/15/24 09:44 UA Bilirubin 1 mg/dL Last Edit by LETY Magana on 06/15/24 09:44 UA Glucose 0 mg/dL Last Edit by LETY Magana on 06/15/24 09:44 Results Reviewed Results Reviewed: Laboratory Last Values Urine pH (Auto) 5.5 06/15/24 09:40 Specific [place] (Auto) 1.025 06/15/24 09:40 Urine Protein (Auto) 15 mg/dL 06/15/24 09:40 Glucose (UA)(Auto) 0 mg/dL 06/15/24 09:40 Urine Ketones (Auto) Negative 06/15/24 09:40 Urine Blood (Auto) 10 Arturo/uL 06/15/24 09:40 Urine Nitrite (Auto) Negative 06/15/24 09:40 Urine Bilirubin (Auto) 1 mg/dL 06/15/24 09:40 Urine Urobilinogen (Auto) 0.2 mg/dL 06/15/24 09:40 Leukocyte Esterase (Auto) 0 Margarita/uL 06/15/24 09:40 Assessment & Plan Assessment & Plan (1) Intrinsic sphincter deficiency (ISD): Code(s): N36.42 - Intrinsic sphincter deficiency (ISD) Category: Medical (2) CESIA (stress urinary incontinence, female): Code(s): N39.3 - Stress incontinence (female) (male) Category: Medical Plan fu in 6 months Orders: Orders AMB Urinalysis Automated Today Z13.9 - Encounter for screening, unspecified Urine Culture Today N39.0 - Urinary tract infection, site not specified Patient Instructions: The patient had an opportunity to ask questions regarding treatment plan. The patient expressed understanding and agreement with the above treatment plan. The patient is aware they should contact our office by phone for worsening of their current condition or the appearance of new symptoms. Compliance is encouraged with any medications and followup testing that is ordered. It is a privilege to be allowed the opportunity to participate in the urologic care of your patient. If you have any questions or concerns regarding treatment for the above conditions please do not hesitate to contact me. The office telephone contact is [phone]. This note is constructed in part using voice recognition software. While every effort has been made to ensure accuracy inspector machine cut glass errors may have been included. Yours sincerely, Jasiel Chan MD Coding Level of Care Code Global (57207) Diagnoses Intrinsic sphincter deficiency (ISD) N36.42 CESIA (stress urinary incontinence, female) N39.3 CPT Codes Post Residual Void - PVR CPT Code: 32837-Ucoe Void Residual by ultrasound ([id number])
== END 2024-06-15 09:51 | disposition home or self-care (01) ==
PROVIDERS: PCP General Practice; Visit Provider Urology
DX: N36.42 Intrinsic sphincter deficiency (ISD) (principal); N39.3 Stress incontinence (female) (male); Z13.9 Encounter for screening, unspecified
CPT/HCPCS: 99024

== ENCOUNTER 2024-12-17 08:15 | Outpatient (AMB) | payer OTHER, SELFPAY ==
--- NOTE | 2024-12-17 08:22 | MHC.OFFVIS ---
Intake Visit Reasons: 6 month follow up Intake Note: Patient is present for 6 month follow up Urology Medication:Estradiol Antibiotic Allergy:none Blood Thinner:none PVR:0ml Vehicle Service Attendant Required: No Allergies oxycodone [From PERCOCET] Allergy (Unknown, Verified 12/17/24 08:29) NAUSEA, DIZZINESS acetaminophen [Percocet] Adverse Reaction (Unknown, Verified 12/17/24 08:29) agitation, hallucinations Medication List - Last Reconciled 12/17/24 by Jasiel Chan MD bisacodyl (Dulcolax (bisacodyl)) 10 mg (2 x 5 mg) PO BEDTIME bupropion HCl 75 mg PO BID cefdinir 300 mg PO BID 3 days doxycycline monohydrate 100 mg PO BID 7 days estradiol 0.01%(0.1mg/gram) vaginal hydrocortisone 2.5% (Proctosol HC) 1 appl RI BID-QID PRN hydromorphone (Dilaudid) 2 mg PO .q6h - q8h PRN linaclotide (Linzess) 290 mcg PO QAM pantoprazole 40 mg PO DAILY topiramate 25 mg PO DAILY HPI Comments Details: 12/17/24--Wanda is a 54-year-old female she is status post pubovaginal sling with mesh sling on 05/22/2024. Urinalysis today is within normal limits. She reports successful outcomes post-procedure with no episodes of urinary leakage since. The patient utilizes estrogen cream, approximately bi-weekly, to support vaginal tissue health, especially given the mesh sling placement. She applies the cream using an applicator, which she initially received from her real estate assistant. A detailed review with the patient confirmed a family history of breast cancer, though her mother has not been diagnosed with the condition. A recent urinalysis returned normal results, with no indication of urinary tract issues. Discussion included maintaining a healthy weight and engaging in Kegel exercises to support pelvic health, as well as the necessity of ongoing annual reviews to ensure ongoing management of her urological health. Urinary Symptoms Review - No current urinary incontinence reported post-pubovaginal sling procedure - No noted urinary leakage - Utilization of estrogen cream approximately twice weekly with an applicator - Engaging in weight management and pelvic floor exercises (Kegel exercises) for bladder control support 06/15/24--s/p pubovaginal sling- 05/22/24-- states she is doing well, describes ocassional bladder discomfort in the bladder which sounds like a bladder spasm. States no urinary leakage. Good urine stream. Counselled on maintaining good bowel regimen, avoid constipation. Exam - pubic incisions well healed, vaginal incision healing well. Will send surveillance urine c/s [facility] Medical History COPD (chronic obstructive pulmonary disease) Surgical History History of esophagogastroduodenoscopy (EGD) Hx of colonoscopy Previous section Family History Mother Arteriosclerosis of bypass graft of coronary artery Alzheimer disease Father No problems noted. Social History Household Members: Spouse Housing: Apartment Are you a primary hearing healthcare practitioner to a significant other at home: No Do you presently have visiting nurse or other home services: No Alcohol intake: never Patient Tobacco Use Status: Current everyday Tobacco user Tobacco use type: Cigarette Cigarette Packs Per Day: 0.5 Cigarettes Per Day: 10 service: No Current occupational status: employed Current occupation: right handed Review of Systems Const All systems reviewed & are unremarkable except as noted in HPI and below Reports no additional complaints Eyes Reports no additional complaints ENT Reports no additional complaints Card Reports no additional complaints Resp Reports no additional complaints GI Reports no additional complaints Reports as per HPI Musc Reports no additional complaints Skin/Breast Reports system reviewed and no additional complaints, except as documented Neuro Reports no additional complaints Psych Reports no additional complaints Endo Reports no additional complaints Catalino/Lymph Reports no additional complaints Aller/Immun Reports no additional complaints Results Reviewed Results Reviewed: 02/27/23/ EXAMINATION: CT ABDOMEN AND PELVIS WITH CONTRAST CLINICAL INFORMATION: Left-sided abdominal pain COMPARISON: None available. TECHNIQUE: Multidetector volumetric images were obtained from the superior aspect of the liver through the pubic symphysis following administration 85 mL of Omnipaque 350 intravenous contrast. Sagittal and coronal reformatted images were obtained on the technologist's workstation. Oral contrast: No This CT examination was performed using dose optimization techniques as appropriate, variously including the following: *Automated exposure control *Adjustment of mA and/or kV according to patient size (this includes techniques or standardized protocols for targeted exams where dose is matched to indication/reason for exam; i.e. extremities or head) *Use of iterative reconstruction technique DLP: 723 mGy-cm FINDINGS: LUNG BASES: The visualized lung bases are unremarkable. LIVER, GALLBLADDER, AND BILIARY TREE: The liver is normal in size, shape, and attenuation. No focal hepatic lesion or biliary ductal dilatation is present. The gallbladder is unremarkable with no evidence of radiopaque gallstones, gallbladder wall thickening, or obvious pericholecystic inflammatory changes. PANCREAS: Unremarkable. SPLEEN: Unremarkable. ADRENAL GLANDS: Unremarkable. KIDNEYS AND URETERS: The kidneys are normal in size, shape, and attenuation. No hydronephrosis, hydroureter, or calculi seen. No perinephric stranding. BLADDER: Unremarkable. GASTROINTESTINAL TRACT: There are several dilated small bowel loops in left midabdomen without any mural thickening. There is small bowel feces sign present in some of the segments of small bowel. Mild dilatation of the proximal duodenum is noted as well. There is a mural thickening involving small bowel loops. There is a transition noted on axial image 32/3 through 45/3. The stomach is nondilated. The ileal loops appear normal caliber. There is scattered colonic diverticulosis, most prominent sigmoid region without mural thickening or fat stranding. Appendix is normal caliber. No inflammatory process seen in the peritoneum. No free fluid. ABDOMINAL WALL: Small lumbar canal hernia containing fat. LYMPH NODES: Normal. VASCULAR: Unremarkable. PELVIC VISCERA: The uterus is anteverted and unremarkable. No adnexal mass or free fluid. OSSEOUS STRUCTURES: Mild ventral spondylosis lower dorsal and upper lumbar spine. Small sclerotic lesion L5 L2 and L1 vertebra. IMPRESSION: Multiple dilated proximal small bowel loops in left midabdomen with mural thickening suggestive of an tendinitis. Rest of the small bowel loops and stomach is unremarkable Colonic diverticulosis without diverticulitis. Assessment & Plan Assessment & Plan (1) Intrinsic sphincter deficiency (ISD): Code(s): N36.42 - Intrinsic sphincter deficiency (ISD) Category: Medical (2) CESIA (stress urinary incontinence, female): Code(s): N39.3 - Stress incontinence (female) (male) Category: Medical (3) Vaginal atrophy: Code(s): N95.2 - Postmenopausal atrophic vaginitis Category: Medical (4) History of midurethral sling procedure: Code(s): Z98.890 - Other specified postprocedural states Category: Surgical Plan Plan - Continue using the estrogen cream approximately twice weekly with an applicator. - Monitor for any return of urinary incontinence symptoms and seek care if necessary. - Maintain a healthy weight to support bladder control. - Engage in regular pelvic floor exercises to reinforce urinary function. - Schedule a follow-up appointment for next year to assess ongoing health stability. - Contact the office for refills of the estrogen cream as needed. Patient Instructions: The patient had an opportunity to ask questions regarding treatment plan. The patient expressed understanding and agreement with the above treatment plan. The patient is aware they should contact our office by phone for worsening of their current condition or the appearance of new symptoms. Compliance is encouraged with any medications and followup testing that is ordered. It is a privilege to be allowed the opportunity to participate in the urologic care of your patient. If you have any questions or concerns regarding treatment for the above conditions please do not hesitate to contact me. The office telephone contact is [phone]. This note is constructed in part using voice recognition software. While every effort has been made to ensure accuracy body builder apprentice errors may have been included. Yours sincerely, Jasiel Chan MD Scribe Plan - Not visible on output: Patient was informed and verbally consented to the use of an ambient scribe for clinic note documentation during this visit. Coding Level of Care Code Est Pt Level 3 (55323) Complex EM visit Add On G2211 Diagnoses Intrinsic sphincter deficiency (ISD) N36.42 CESIA (stress urinary incontinence, female) N39.3 Vaginal atrophy N95.2 History of midurethral sling procedure Z98.890
--- OUTSIDE RECORDS SUMMARY | 2024-12-17 08:35 | XMS_ITS | Encounter Summary ---
Author Organization [employer] Address [address] [facility] [address] [place] [address] Care Team Providers Care Field Machinist Name Role Phone Jennifer Mcconnell MD Primary Care Provider [phone] Reason for Referral * Imaging (Routine) - Closed Specialty Diagnoses / Procedures Referred By Contac t Referred To Contact Diagnoses Pelvic pain Procedures US Pelvis Transvaginal Jennifer Mcconnell MD [address] [place] [address] Phone: tel: fax: [facility] MRI and CT Scan [address] [place], [place] Phone: tel: fax: Referral ID Status Reason Start Date Expiration Date Visits Re quested Visits Authorized [id number] Closed 10/01/2022 03/30/2023 1 1 Encounter Details Date Type Department Care Team (Late st Contact Info) Description 10/01/2022 Orders Only [facility] MED[facility] [address] [place], [place] [phone] Jennifer Mcconnell MD [address] [place], [place] [phone] Pelvic pain (Primary Dx) Social History Tobacco Use Types Packs/Day Years Used Date Smoking Tobacco: Never Smokeless Tobacco: Never Depression Answer Date Recorded Patient Health Questionnaire-9 Score 5 09/24/2022 Comments Unknown Sex and Gender Information Value Date Recorded Sex Assigned at Female 07/05/2022 10:15 AM EDT Legal Sex Female 10:15 AM EDT Gender Identity Female 07/05/2022 10:15 AM EDT Sexual Orientation Choose not to disclose 2021 10:15 AM EDT COVID-19 Exposure Response Date Recorded In the last 10 days, have yo u been in contact with someone who was confirmed or suspected to have Coronavirus/COVID-19? No / Unsure 09/24/2022 10:42 AM EST documented as of this encounter Miscellaneous Notes * Result Encounter Note - Jennifer Mcconnell MD - 10/01/2022 8:42 AM EST Please let patient know that her pelvic ultrasound was normal, no cysts/masses/tumors/thickening ofendometrial lining. We can review it, her labs (all normal) at her pap next week. Thank you! documented in this encounter Plan of Treatment Scheduled Orders Name Type Priority Associated Diagnoses Orde r Schedule US Pelvis Transvaginal Imaging Routine Pelvic pain Expected: 10/01/2022, Expires: 10/01/2023 documented as of this encounter Procedures Procedure Name Priority Date/Time Associated Diagnosis Comments US PELVIS TRANSVAGINAL Routine 3 2:29 PM EST BI MAMMOGRAM SCREENING TOMOSYNTHESIS BILATERAL Routine 10/19/2022 12:15 PM EST VITAMIN B12/FOLATE, SERUM PANEL Routine 10/19/2022 11:14 AM EST Pelvic pain TSH W/REFLEX TO FT4 Routine 10/19/2022 1 1:14 AM EST Pelvic pain TISSUE TRANSGLUTAMINASE AB, IGG Routine 10/19/2022 11:14 AM EST Pelvic pain TISSUE TRANSGLUTAMINASE AB, IGA Routine 10/19/2022 11:14 AM EST Pelvic pain LIPASE Routine 10/19/2022 11:14 AM EST Pelvic pain HEMOGLOBIN A1C Routine 10/19/2022 11:14 AM EST Pelvic pain documented in this encounter Results * US Pelvis Transvaginal (10/19/2022 2:29 PM EST) Anatomical Region Laterality Modality Pelvis Ultrasound 10/19/2022 2:29 PM EST Narrative 10/21/2022 11:56 PM EST ? [facility] ?[address] ?[place] [address] ? Ultrasound Report ? Signed ? Patient: Lindsey,Wanda ?MR#: [id number] ?? [id number] ? : 1970 ?Acct:[id number] ? Age/Sex: 52 / F ?ADM Date: 10/19/22 ? Loc: HO.US ? Attending Dr: Jennifer Mcconnell MD ? Ordering Physician: Jennifer Mcconnell ?? Date of Service: 10/19/22 ?? Procedure(s): US pelvic and transvaginal ?? Accession Number(s): [id number] ? cc: Jennifer Mcconnell ? EXAMINATION: ? US PELVIS ? CLINICAL INFORMATION: ? Bilateral pelvic pain for three weeks. Rule out mass/fibroids. ? COMPARISON: ?? None ? TECHNIQUE: ?? Ultrasound of the pelvis is performed using both transabdominal and ?? transvaginal transducers along with Doppler. Transvaginal imaging is ?? performed due to inadequate visualization transabdominally. ? FINDINGS: ? UTERUS: ?? The uterus is anteverted and measures 10.9 x 4.5 x 4.9 cm. ? The double wall endometrial thickness is 10 mm. ? The uterus is smooth in contour and has normal myometrial echogenicity. ?? No visible fibroid. Nabothian cysts are present in the cervix. ? ADNEXA: ?? Both ovaries are visualized. There is normal color flow to the adnexa. ?? There is no ovarian torsion. There is no pelvic ascites or fluid ?? collection. ? Right ovary measures 1.6 x 1.1 x 1.6 cm for a volume of 1.5 mL. ? Left ovary measures 1.5 x 1.0 x 1.3 cm for a volume of 1.06 mL. ? US/US pelvic and transvaginal ?? IMPRESSION: ?? Negative exam. ? Dictated By: ?Gene Valdivia MD ? Signed By: ?<Electronically signed by Gene Valdivia MD in OV> ? 10/21/223 ? DD/ 1429 ? TD/TT: ? Regional Account Director: SS ? Procedure Note Donotuseinterpreter, Image - 10/21/[address] [address] Ultrasound Report Signed Patient: Maurice Lindsey#: [id number] : 1970Acct:[id number] Age/Sex: 52 / FADM Date: 10/19/22 Loc: .US Attending Dr: eJnnifer Mcconnell MD Ordering Physician: Jennifer Mcconnell Date of Service: 10/19/22 Procedure(s): US pelvic and transvaginal Accession Number(s): [id number] cc: Jennifer Mcconnell EXAMINATION: US PELVIS CLINICAL INFORMATION: Bilateral pelvic pain for three weeks. Rule out mass/fibroids. COMPARISON: None TECHNIQUE: Ultrasound of the pelvis is performed using both transabdominal and transvaginal transducers along with Doppler. Transvaginal imaging is performed due to inadequate visualization transabdominally. FINDINGS: UTERUS: The uterus is anteverted and measures 10.9 x 4.5 x 4.9 cm. The double wall endometrial thickness is 10 mm. The uterus is smooth in contour and has normal myometrial echogenicity. No visible fibroid. Nabothian cysts are present in the cervix. ADNEXA: Both ovaries are visualized. There is normal color flow to the adnexa. There is no ovarian torsion. There is no pelvic ascites or fluid collection. Right ovary measures 1.6 x 1.1 x 1.6 cm for a volume of 1.5 mL. Left ovary measures 1.5 x 1.0 x 1.3 cm for a volume of 1.06 mL. US/US pelvic and transvaginal IMPRESSION: Negative exam. Dictated By: Gene Valdivia MD Signed By: <Electronically signed by Gnee Valdivia MD in OV> 10/21/22 2353 DD/ 1429 TD/TT: Regional Account Director: SS [facility] External Provider IMG US PROCEDURES Edited Result - Final * BI Mammogram Screening Tomosynthesis Bilateral (10/19/2022 12:15 PM EST) Anatomical Region Laterality Modality Breast Bilateral Mammography 10/19/2022 12:1 5 PM EST Narrative 10/21/2022 8:27 AM EST ? [facility] ?[address] ?[place] [address] ? Mammography Report ? Signed ? Patient: Lindsey,Wanda ?MR#: [id number] ?? [id number] ? : 1970 ?Acct:[id number] ? Age/Sex: 52 / F ?ADM Date: 10/19/22 ? Loc: HO.US ? Attending Dr: Jennifer Mcconnell MD ? Ordering Physician: Jennifer Mcconnell ?Results: 1Negative ? Date of Service: 10/19/22 ?Follow Up: 1 Year From Orig ?? inal Mammogram ? Procedure(s): MM tomosynthesis screening BI ?? Accession Number(s): [id number] ? cc: Jennifer Mcconnell ? EXAMINATION: ?? MM SCREENING DIGITAL BREAST TOMOSYNTHESIS, BILATERAL ? CLINICAL INFORMATION: ? Screening. Asymptomatic. ? The lifetime risk of breast cancer based on the Tyrer-Cuzick Model is ?? 7%. ? COMPARISON: ?? Mammography: 06/07/2014 (baseline) ? TECHNIQUE: ?? Digital breast tomosynthesis is performed in both the craniocaudal and ?? mediolateral oblique views along with computer-aided detection (CAD). ?? Synthesized 2D images are generated from the tomosynthesis. ? FINDINGS: ?? There are scattered areas of fibroglandular density (ACR BI-RADS breast ?? composition Category b). ? There are no significant masses, abnormal calcifications, or other ?? abnormalities. ??No architectural abnormality or developing density or ?? significant change from prior baseline exam. The axilla and skin ?? contours are unremarkable. ? MM/MM tomosynthesis screening BI ?? IMPRESSION: ?? No mammographic evidence of malignancy. ? ASSESSMENT: ? BI-RADS 1: Negative ? RECOMMENDATION: ?? Routine annual mammography screening. ? This patient's information was entered into a reminder system with a ?? target due date for their next mammogram. ? Dictated By: ?Gene Berrios MD ? Signed By: ?<Electronically signed by Gene Berrios MD in OV> ?10/21/22 0824 ? DD/ 1215 ? TD/TT: ? Regional Account Director: HORAN ? Procedure Note Sophia, Tereso - 10/21/[address] [address] Mammography Report Signed Patient: Maurice Lindsey#: [id number] [id number] : 1970Acct:[id number] Age/Sex: 52 / FADM Date: 10/19/22 Loc: HO. Attending Dr: Jennifer Mcconnell MD Ordering Physician: Michelle Mcconnellults: 1Negative Date of Service: 10/19/22Follow Up: 1 Year From Orig inal Mammogram Procedure(s): tomosynthesis screening BI Accession Number(s): [id number] cc: Jennifer Mcconnell EXAMINATION: MM SCREENING DIGITAL BREAST TOMOSYNTHESIS, BILATERAL CLINICAL INFORMATION: Screening. Asymptomatic. The lifetime risk of breast cancer based on the Tyrer-Cuzick Model is 7%. COMPARISON: Mammography: 06/07/2014 (baseline) TECHNIQUE: Digital breast tomosynthesis is performed in both the craniocaudal and mediolateral oblique views along with computer-aided detection (CAD). Synthesized 2D images are generated from the tomosynthesis. FINDINGS: There are scattered areas of fibroglandular density (ACR BI-RADS breast composition Category b). There are no significant masses, abnormal calcifications, or other abnormalities. No architectural abnormality or developing density or significant change from prior baseline exam. The axilla and skin contours are unremarkable. MM/MM tomosynthesis screening BI IMPRESSION: No mammographic evidence of malignancy. ASSESSMENT: BI-RADS 1: Negative RECOMMENDATION: Routine annual mammography screening. This patient's information was entered into a reminder system with a target due date for their next mammogram. Dictated By: Gene Berrios MD Signed By: <Electronically signed by Gene Berrios MD in OV> 10/21/22 0824 DD/ 1215 TD/TT: Regional Account Director: HORAN [facility] External Provider IMG BI PROCEDURES Edited Result - Final * Tissue Transglutaminase Antibody, IgA (10/19/2022 11:14 AM EST) Transglutaminase IgA <1.0 U/mL [facility] Comment:Value Interpretation ----- <15.0 Antibody not detected> or = 15.0 Antibody detectedTHIS TEST WAS PERFORMED AT:[facility] [place] [id number] MYERS MD 10/19/2022 11:1 4 AM EST 10/19/2022 11:14 AM EST [facility] External Provider LAB BLO OD ORDERABLES Final Result [facility] [address] [place] [address] [phone] * Tissue Transglutaminase (tTG) Antibody (IgG) (10/19/2022 11:14 AM EST) Tissue Transglutaminase Antibody IgG <1.0 U/mL [facility] Comment:Value Interpretation ----- <15.0 Antibody not detected> or = 15.0 Antibody detectedTHIS TEST WAS PERFORMED AT:[facility] [place] [id number] MYERS MD 10/19/2022 11:1 4 AM EST 10/19/2022 11:14 AM EST [facility] External Provider LAB BLO OD ORDERABLES Final Result Performing Organization Address [facility] Phone Number [facility] [address] [place] [phone] * Hemoglobin A1c (10/19/2022 11:14 AM EST) Hemoglobin A1c 4.9 % [facility] Comment:Hemoglobin A1C Refer ence Range Adults: 4.8 - 6.0 % Non diabetic: < 6.0 % Goal: < 7.0 %Additional Action Suggested: > 8.0 %Note: Hemoglobin A1c results are invalid for patients with abnormal amounts of HbF. Blood transfusions may impact the HbA1c concentration in the patient sample. Estimated Average Glucose 94 mg/dL [facility] Comment:eAG = Estimated ave rage glucose which is %A1C expressed asaverage glucose, using the formula of the B5S-EtcnfvgEynawls Glucose study (ADAG), Diabetes Care, Vol.31,#8,Apr. 2007 10/19/2022 11:1 4 AM EST 10/19/2022 11:14 AM EST [facility] External Provider LAB BLO OD ORDERABLES Final Result Performing Organization Address [facility] Phone Number [facility] [address] [place] [address] [phone] * TSH W/Reflex to FT4 (10/19/2022 11:14 AM EST) TSH reflex Free T4 1.81 0.32 - 4.0 uIU/mL [facility] 10/19/2022 11:1 4 AM EST 10/19/2022 11:14 AM EST [facility] Provider LAB BLO OD ORDERABLES Final Result Performing Organization Address [facility] Co de Phone Number [facility] [address] [place] [phone] * Vitamin B12/Folate, Serum Panel (10/19/2022 11:14 AM EST) Pathologist [facility] Vitamin B12 336 200 - 900 pg/mL [facility] Comment:NORMAL 200-900 PG/M L INDETERMINATE 160-199 PG/ML DEFICIENT < 160 PG/ML Folate 9.3 > or = 4.0 ng/mL [facility] Comment:Reference Values:> o r = 4.0 ng/mL< 4.0 ng/mL suggests folate deficiency Methotrexate, aminopterin and folinic acid(leucovorin) are chemotherapeutic agents whose molecularstructures are similar to folate; therefore, the Architectfolate assay cannot be used for patients using these drugs. 10/19/2022 11:1 4 AM EST 10/19/2022 11:14 AM EST [facility] External Provider LAB BLO OD ORDERABLES Final Result Performing Organization Address [facility] Co de Phone Number [facility] [address] [place] [phone] * Lipase (10/19/2022 11:14 AM EST) Lipase 11 8 - 78 U/L [facility] 10/19/2022 11:1 4 AM EST 10/19/2022 11:14 AM EST [facility] LAB BLO OD ORDERABLES Final Result [facility] [address] [place] [phone] documented in this encounter Visit Diagnoses Diagnosis Pelvic pain- Primary documented in this encounter Additional Health Concerns Assessment Noted Time PHQ-9 Depression Total Score: 5 09/24/19 23 11:00 AM EST documented as of this encounter Care Teams Field Machinist Relationship Specialty Start Date End Date Jennifer Mcconnell MD [address] [place] [phone] PCP - General Family Medicine 06/25/22 documented as of this encounter
--- OUTSIDE RECORDS SUMMARY | 2024-12-17 08:35 | XMS_ITS | Encounter Summary ---
Author Organization [employer] Address [address] [facility] [address] [place] [address] Care Team Providers Care Trichologist Name Role Phone Jennifer Mcconnell MD Primary Care Provider [phone] Reason for Visit * Reason Comments Med Refill Encounter Details Date Type Department Care Team (Late st Contact Info) Description 06/10/2024 Refill [facility] [address] [place] [address] Jennifer Mcconnell MD [address] [place] [address] Social History Tobacco Use Types Packs/Day Years Used Date Smoking Tobacco: Every Day Cigarettes Passive Smoke Exposure: Current Smokeless Tobacco: Never Alcohol Use Standard Drinks/Week Comments Never 0 (1 standard drink = 0.6 oz pur e alcohol) Depression Answer Date Recorded Patient Health Questionnaire-9 Score 5 01/27/2024 Patient Health Questionnaire-9 Score 5 01/27/2024 Last PHQ-9: Questionnaire Data Not on file 0 01/27/2024 Housing Stability Answer Date Recorded What is your housing situation today? I have nelson crowe 01/19/[address] you li ve. Do you have problems with any of the following? None of the above 01/19/2024 Food Insecurity Answer Date Recorded Within the past 12 months, y ou worried that your food would run out before you got money to buy more: Never True 01/19/2024 Within the past 12 months,th e food you bought just didn't last and you didn't have enough money to get more: Never True Transportation Answer Date Recorded In the past 12 months, has l ack of transportation kept you from medical appts, meetings, work or from getting things needed for daily living? Yes, it has kept me from medical appointments or getting medications. 01/27/2024 Utilities Answer Date Recorded In the past 12 months, has t he electric, gas, oil or water company threatened to shut off services in your home? No 01/19/2024 Depression Answer Date Recorded Patient Health Questionnaire-2 Score 2 01/27/2024 Comments Unknown Sex and Gender Information Value Date Recorded Sex Assigned at Female 07/05/2022 10:15 AM EDT Legal Sex Female 10:15 AM EDT Gender Identity Female 07/05/2022 10:15 AM EDT Sexual Orientation Choose not to disclose 2021 10:15 AM EDT documented as of this encounter Plan of Treatment Not on file documented as of this encounter Visit Diagnoses Not on filedocumented in this encounter Additional Health Concerns Assessment Noted Time PHQ-9 Depression Total Score: 5 01/27/20 24 2:30 PM EDT documented as of this encounter Care Teams Trichologist Relationship Specialty Start Date End Date Jennifer Mcconnell MD [address] [place] [address] PCP - General Family Medicine 06/25/22 documented as of this encounter
--- OUTSIDE RECORDS SUMMARY | 2024-12-17 08:35 | XMS_ITS | Clinical Summary ---
Author Organization [employer] Address [address] [place] [address] [address] [place] [address] Care Team Providers Care Cloth Napping Supervisor Name Role Phone Jennifer Mcconnell MD Primary Care Provider [phone] Allergies Active Allergy Reactions Criticality Noted Date Comments Oxycodone 04/15/2017 Medications guaiFENesin (Mucinex) 600 MG 12 hr tablet Take 1 tablet by mouth every 12 (twelve) hours. 08/31/20 21 Active sodium chloride ([place]) 0.65 % nasal spray 1-2 spray on each nostril every 2-3 hours as needed for nasal congestion 08/31/20 21 Active hydrocortisone (Anusol-HC) 2.5 % rectal cream 1 APPLICATION RECTALLY 2 TO 4 TIMES A DAY NEEDED FOR HEMORRHOIDS 10/19/19 23 Active Linzess 290 MCG capsule TAKE 1 CAPSULE BY MOUTH EVERY DAY IN THE MORNING 03/02/20 23 Active pantoprazole (ProtoNix) 40 MG EC tablet TAKE ONE TABLET HALF AN HOUR BEFORE BREAKFAST 03/02/20 23 Active GAS RELIEF 125 MG capsule TAKE 1 CAPSULE ORALLY 2 TO 4 TIMES A DAY NEEDED FOR ABDOMINAL DISTENTION 03/02/20 23 Active docusate sodium (Colace) 100 MG capsule TAKE 1 CAPSULE BY MOUTH EVERYDAY AT BEDTIME 12/15/19 23 Active albuterol 108 (90 Base) MCG/ACT inhalerIndicati ons:COVID-19 Inhale 2 puffs every 6 (six) hours if needed for wheezing. 18 g 08/19/20 23 Active acetaminophen (Tylenol 8 Hour) 650 MG ER tabletIndicatio ns:COVID-19 Take 1 tablet (650 mg) by mouth every 8 (eight) hours if needed for mild pain or headaches (fever). 90 tablet 08/19/20 Active Linzess 145 MCG capsuleIndicati ons:Other constipation Take 145 mcg by mouth in the morning. 07/29/20 Active estradiol (Estrace) 0.1 MG/GM vaginal cream Insert 2 g into the vagina Once per day. Insert once per day x 1 week, then twice a week for 3-6 months 42.5 g 3 01/27/20 24 2024 Active topiramate (Topamax) 25 MG tablet Take 1 tablet (25 mg) by mouth Once per day. 90 tablet 3 01/27/20 Active buPROPion (Wellbutrin) 75 MG tablet Take 1 tablet (75 mg) by mouth 2 times daily. 60 tablet 11 01/30/20 24 2024 Active fluticasone (Flonase) 50 MCG/ACT nasal sprayIndication s:Tenderness over frontal sinus Administer 1 spray into each nostril Once per day. 16 g 2 11/22/19 25 2024 Active ibuprofen 800 MG tablet Take 1 tablet by mouth every 8 (eight) hours. 01/08/20 17 2024 Discontinued(D ose adjustment) fluticasone (Flonase) 50 MCG/ACT nasal sprayIndication s:COVID-19 Administer 1 spray into each nostril in the morning. 16 g 2 08/19/20 23 2024 Discontinued(R eorder (will not trigger notification to Pharmacy)) amoxicillin-cla vulanate (Augmentin) 875-125 MG tabletIndicatio ns:Acute otitis media, unspecified otitis media type Take 1 tablet by mouth 2 times daily for 5 days. 10 tablet 11/22/19 25 2024 ibuprofen 600 MG tabletIndicatio ns:Acute otitis media, unspecified otitis media type Take 1 tablet (600 mg) by mouth every 6 (six) hours if needed for mild pain for up to 14 days. 42 tablet 11/22/19 25 2024 Active Problems Problem Noted Date Diagnosed Date Mixed stress and urge urinary incontinence 10/05 Assessment & Plan (01/30/2024 2:19 PM EDT): Increase Oxybutynin to 10mg XL Continue pelvic floor exercises Add vaginal estrogen (no personal history of breast cancer, mammo UTD) Refer to urogynecology for discussion of surgery Assessment & Plan (10/05/2023 12:01 PM EST): Increase Oxybutynin to 10mg XL Continue pelvic floor exercises COVID-19 08/19/2023 Assessment & Plan (08/19/2023 1:46 PM EST): Rx Paxlovid x 5 days, [place] interactions module checked, no significant interactions found. Isolation until 08/24 and she/he will be out of work until then. Can be out of isolation, wearing a mask from 08/25 until 08/28, if sxs are resolved without other meds for at least 24h. Counseled to let close contacts within the past week, know about dx so they can be tested if needed. Rest (sleep at least 8 hours a night). Wash hands frequently Hydrate with plenty of water. Use saline nose drops Take Acetaminophen or Ibuprofen as Prn fever or discomfort Prescription for Flonase Gargle with salt water and use throat sprays/lozenges prn Use heated, humidified air or take hot showers. If you have a fever, stay home and away from others (self isolation) until fever-free for 72 hours (temperature should be less than 100??F without medication). Cervical cancer screening 11/03/2022 Assessment & Plan (11/03/2022 5:08 AM EST): Exam within normal limits Mammogram UTD Pap, HPV sent SureSwab per pt request Pelvic pain 09/27/2022 Assessment & Plan (04/04/2023 6:31 AM EDT): Improved, normal US 10/2022 Smoker 09/27/2022 Assessment & Plan (01/30/2024 2:19 PM EDT): Working on quitting on her own Constipation 06/27/2022 Assessment & Plan (04/04/2023 6:32 AM EDT): On Linzess Anxiety 06/25/2022 Chronic obstructive lung disease 06/25/2022 Assessment & Plan (01/30/2024 2:19 PM EDT): On CADE prn Declines initiation of LABA/LAMA Declines smoking cessation interventions Well controlled symptoms currently Assessment & Plan (08/19/2023 1:45 PM EST): Use albuterol TID for the next 5 days while using antiviral Can increase up to 4 hours PRN SOB Assessment & Plan (04/04/2023 6:32 AM EDT): On CADE prn Declines initiation of LABA/LAMA Declines smoking cessation interventions PCV 20 given today Obesity 06/25/2022 Osteoarthritis 06/25/2022 Encounters Date Type Department Care Team Description 11/21/2024 11:20 AM EDT Office Visit [facility] [address] [place] [address] Audrey Youssef, EVELIN Acute otitis media, unspecified otitis media type (Primary Dx); Tenderness over frontal sinus from Last 3 Months Immunizations Name Administration Dates Next Due HepB-CpG 07/16/2024,10/05/2023 Influenza injectable quadriv alent preservative free 06/25/2022,06/02/2020,05/29/2015 Pneumococcal Conjugate PCV 20 04/01/2023 Td (adult), 5 Lf tetanus tox oid, preservative free, adsorbed 05/04/2016,07/23/2012 Zoster, Recombinant 10/05/2023,04/01/2023 Social History Tobacco Use Types Packs/Day Years Used Date Smoking Tobacco: Every Day Cigarettes Passive Smoke Exposure: Current Smokeless Tobacco: Never Tobacco Cessation:Ready to Q uit: Not Asked; Counseling Given: Not Answered Alcohol Use Standard Drinks/Week Comments Never 0 [...] not to disclose 2021 10:15 AM EDT Last Filed Vital Signs Vital Sign Reading Time Taken Comments Blood Pressure 123/81 11/21/2024 11:11 AM EDT Pulse 75 11/21/2024 11:11 AM EDT Temperature 36.8 ??C (98.2 ??F) 11/21/2024 11:11 AM E DT Respiratory Rate 16 11/21/2024 11:11 AM EDT Oxygen Saturation 98% 11/21/2024 11:11 AM EDT Inhaled Oxygen Concentration - - Weight 92.5 kg (204 lb) 11/21/2024 11:11 AM EDT Height 149.9 cm (4' 11 ) 01/27/2024 2:28 PM EDT Body Mass Index 41.2 01/27/2024 2:28 PM EDT Plan of Treatment Health Maintenance Due Date Last Done Comments CT Colonography 1972 FIT DNA/Cologuard 1972 FIT 1972 FOBT 1972 HIV Screening 1972 Sigmoidoscopy 1972 Alcohol/Substance Use Screening 1984 Family Planning (PISQ) 1987 Hepatitis C Screening 1990 DTaP/Tdap/Td Vaccines (1 - Tdap) 05/05/2016 05/04/2016, 07/23/2012 COVID-19 Vaccine (3 season) 2024 03/02/2021, 02/06/2021 Influenza Vaccine (#1) 2024 , 06/02/2020, 05/29/2015 Depression Screening 01/26/2025 01/27/2024, 01/27/20 SDOH Screening 01/26/2025 01/27/2024 Mammogram 02/19/2025 02/20/2024, 10/06, 10/19/2022 Tobacco Screening 11/22/2025 11/22/2024 Cervical Cancer Screening 11/01/2027 HPV/Cotest 11/01/2027 11/01/2022, 11/01/2022 Pap Smear 11/01/2027 11/01/2022, 10/07, 11/01/2022, Additional history exists Lipid Panel 01/26/2029 01/27/2024 Colonoscopy 04/29/2033 04/29/2023, 04/29/2023 Colorectal Cancer Screening 04/29/2033 RSV Patients and Patients Aged 60 years or older (1 - 1-dose 75+ series) 2047 Pneumococcal Vaccine: 50+ Years Completed 04/01/2023 Zoster Vaccines Completed 10/05/2023, 04/01/2023 Hepatitis B Vaccines Completed 07/16/2024, 10/05/19 HIB Vaccines Aged Out No longer eligi ble based on patient's age to complete this topic HPV Vaccines Aged Out No longer eligi ble based on patient's age to complete this topic Hepatitis A Vaccines Aged Out No long er eligible based on patient's age to complete this topic IPV Vaccines Aged Out No longer eligi ble based on patient's age to complete this topic Meningococcal Vaccine Aged Out No anson jackelyn eligible based on patient's age to complete this topic RSV under 20 months Aged Out No longe r eligible based on patient's age to complete this topic Rotavirus Vaccines Aged Out No longer eligible based on patient's age to complete this topic Procedures Procedure Name Priority Date/Time Associated Diagnosis Comments BI MAMMOGRAM SCREENING TOMOSYNTHESIS BILATERAL Routine 02/20/2024 12:25 PM EDT Encounter for screening mammogram for malignant neoplasm of breast LIPID PANEL, STANDARD Routine 01/27/2024 3:34 PM EDT Class 2 obesity with body mass index (BMI) of 35.0 to 35.9 in adult, unspecified obesity type, unspecified whether serious comorbidity present HM COLONOSCOPY Routine 04/29/2023 THINPREP IMAGING PAP AND HPV MRNA E6/E7 WITH REFLEX TO HPV 16,18/45 Routine 11/01/2022 10:16 AM EST from Last 3 Months or Most Recently Relevant to Health Maintenance Results * BI Mammogram Screening Tomosynthesis Bilateral (02/20/2024 12:25 PM EDT) Anatomical Region Laterality Modality Breast Bilateral Mammography 02/20/2024 12:2 5 PM EDT Narrative 03/19/2024 4:25 PM EDT ? [facility] [place] ? [address] ?[place] [address] ? Mammography Report ? Signed ? Patient: Lindsey,Wanda ?MR#: [id number] ?? [id number] ? : 1970 ?Acct:[id number] ? Age/Sex: 53 / F ?ADM Date: 06/17/24 ? Loc: HO.MAMMO ? Attending Dr: Jennifer Mcconnell MD ? Ordering Physician: Jennifer Mcconnell ?Results: 1Negative ? Date of Service: 02/20/24 ?Follow Up: 1 Year From Orig ?? inal Mammogram ? Procedure(s): MM tomosynthesis screening BI ?? Accession Number(s): [id number] ? cc: Jennifer Mcconnell ? EXAMINATION: ?? MM SCREENING DIGITAL BREAST TOMOSYNTHESIS, BILATERAL ? CLINICAL INFORMATION: ? Screening. Asymptomatic. ? COMPARISON: ?? Mammography: This study is compared with prior exams dating back to ?? 2013. ? TECHNIQUE: ?? Digital breast tomosynthesis is performed in both the craniocaudal and ?? mediolateral oblique views along with computer-aided detection (CAD). ?? Synthesized 2D images are generated from the tomosynthesis. ? FINDINGS: ?? The breasts are almost entirely fatty (ACR BI-RADS breast composition ?? Category a). ? There are no significant masses, abnormal calcifications, or other ?? abnormalities. ? MM/MM tomosynthesis screening BI ?? IMPRESSION: ?? No mammographic evidence of malignancy. ? ASSESSMENT: ? BI-RADS BI-RADS 1 - Negative ? RECOMMENDATION: ?? Routine annual mammography screening. ? 1 year F/U ? This examination should not preclude the clinical evaluation of a ?? suspicious palpable abnormality. ? This patient's information was entered into a reminder system with a ?? target due date for their next mammogram. ? Dictated By: ?Baylee Casper MD ? Signed By: ?<Electronically signed by Baylee Casper MD in OV> ? 03/19/24 1622 ? DD/ 1225 ? TD/TT: ? Plating Equipment Tender: ? Procedure Note Sophia, Image - 03/19/2024 [facility] [address] [place], [place] [address] Mammography Report Signed Patient: Maurice Lindsey#: [id number] : 1970Acct:[id number] Age/Sex: 53 / FADM Date: 02/20/24 Loc: HO.MAMMO Attending Dr: Jennifer Mcconnell MD Ordering Physician: Michelle Mcconnellults: 1Negative Date of Service: 02/20/24Follow Up: 1 Year From Orig inal Mammogram Procedure(s): MM tomosynthesis screening BI Accession Number(s): [id number] cc: Jennifer Mcconnell EXAMINATION: MM SCREENING DIGITAL BREAST TOMOSYNTHESIS, BILATERAL CLINICAL INFORMATION: Screening. Asymptomatic. COMPARISON: Mammography: This study is compared with prior exams dating back to 2014. TECHNIQUE: Digital breast tomosynthesis is performed in both the craniocaudal and mediolateral oblique views along with computer-aided detection (CAD). Synthesized 2D images are generated from the tomosynthesis. FINDINGS: The breasts are almost entirely fatty (ACR BI-RADS breast composition Category a). There are no significant masses, abnormal calcifications, or other abnormalities. MM/MM tomosynthesis screening BI IMPRESSION: No mammographic evidence of malignancy. ASSESSMENT: BI-RADS BI-RADS 1 - Negative RECOMMENDATION: Routine annual mammography screening. 1 year F/U This examination should not preclude the clinical evaluation of a suspicious palpable abnormality. This patient's information was entered into a reminder system with a target due date for their next mammogram. Dictated By: Baylee Casper MD Signed By: <Electronically signed by Baylee Casper MD in OV> 03/19/24 1622 DD/ 1225 TD/TT: Plating Equipment Tender: us Jennifer Mcconnell MD IM BI PROCEDURES Final Result * (ABNORMAL) Lipid Panel, Standard (01/27/2024 3:34 PM EDT) Triglycerides 115 <150 mg/dL [facility] Comment:Desirable Triglyceri de: less than 150 mg/dLBorderline High Triglyceride 150-199 mg/dLHigh Triglyceride: 200-499 mg/dLVery High Triglyceride: greater than or equal to 5OO mg/dL Cholesterol 145 <200 mg/dL [facility] Comment:Desirable Cholestero l: less than 200 mg/dLBorderline High Cholesterol: 200-239 mg/dLHigh Cholesterol: greater than 239 mg/dL LDL Cholesterol Calculated 85 <100 mg/dL [facility] Comment:Desirable LDL: less than 100 mg/dLNear Optimal/Above Optimal LDL: 110- 129 mg/dLBorderline High LDL: 130-159 mg/dLHigh LDL: 160-189 mg/dLVery High LDL: greater than or equal to 190 mg/dL HDL Cholesterol 37(L) >40 mg/dL [facility] Comment:Desirable HDL: great er than 40 mg/dL Note: This HDL assay may give artificially low results in patients with liver disease. Blood Venous blood specimen / Unknown 01/27/2024 3:34 PM EDT 01/27/2024 6:02 PM EDT Jennifer Mcconnell MD LAB BLOOD ORDERABLES Final Res ult [facility] [address] [place] [phone] * Hm Colonoscopy (04/29/2023) Colonoscopy Normal Normal Jennifer Mcconnell MD HEALTH MAINTENANCE Final Resul t * Thinprep TIS PAP And HPV mRNA E6/E7 With Reflex To HPV 16,18/45 (11/01/2022 10:16 AM EST) Clinical Information: 52 YO, NO ABN PER PT [facility] LMP: [facility] o[facility] MED [facility], [facility] Prev. PAP: NONE GIVEN [facility] morial MED [facility], [facility] Anatomic Patholo Prev. BX: NONE GIVEN [facility], [facility]olo SOURCE: None given [facility] MED [facility], [facility] Statement Of Adequacy: [facility], [facility] Comment: Satisfactory for evaluation. Endocervical/transformation zone component absent. Interpretation/ Result: Negative for intraepithelial lesion or malignancy. [facility], [facility] Infection Trichomonas vaginalis identified. [facility], [facility] COMMENT: This Pap test has been evaluated with computer assisted technology. [facility], [facility] Anatomic Patholo Cytotechnologis t: [facility], [place] [address] Anatomic Patholo Comment: GSG, CT(ASCP) CT screening location: [address] ??[address] PATHOLOGIST: [facility], [facility] Anatomic Patholo Comment: Ariel Montgomery MD, PhD, Board Certified in Anatomic and Clinical Pathology (electronic signature) Consulting Pathologist [facility] [address] [place] [id number] (Always Message) [facility], [place] [address] Anatomic Patholo Comment: EXPLANATORY NOTE: The Pap is a screening test for cervical cancer. It is not a diagnostic test and is subject to false negative and false positive results. It is most reliable when a satisfactory sample, regularly obtained, is submitted with relevant clinical findings and history, and when the Pap result is evaluated along with historic and current clinical information. HPV nRNA E6/E7 Not Detected Not Detected [employer] [facility] Comment: Methodology: [employer] Developer-Mediated Amplification This assay detects E6/E7 viral messenger RNA (mRNA) from 14 high-risk HPV types (16,18,31,33,35,39,45,51,52,56,58,59,66,68). Cervical sources are required for HPV testing. If a vaginal source from a patient who has had a total hysterectomy with removal of cervix was submitted, please contact the testing laboratory for alternative testing options. For additional information, please refer to http://education.Updater/faq/EDJ356t8 (This link if provided for information/ educational purposes only.) 11/01/2022 10:1 6 AM EST 11/02/2022 8:35 AM EST Narrative [facility] - 11/04/2022 2:56 PM EST FASTING: UNKNOWN Jennifer Mcconnell MD LAB PATHOLOGY ORDERABLES Final Result [facility] [address] [place] [address] [facility] [address] [place] [address] [facility] [address], ([address]) [place] [address] from Last 3 Months or Most Recently Relevant to Health Maintenance Insurance Care Teams Cloth Napping Supervisor Relationship Specialty Start Date End Date Jennifer Mcconnell MD [address] [place] [address] PCP - General Family Medicine 06/25/22
== END 2024-12-17 08:54 | disposition home or self-care (01) ==
LOC: HO.HUSH 08:16
PROVIDERS: PCP General Practice; Visit Provider Urology
DX: N36.42 Intrinsic sphincter deficiency (ISD) (principal); N39.3 Stress incontinence (female) (male); N95.2 Postmenopausal atrophic vaginitis; Z98.890 Other specified postprocedural states; Z13.9 Encounter for screening, unspecified
CPT/HCPCS: 99213; G2211

== ENCOUNTER → 2024-12-17 08:15 | Outpatient (BNVA) | payer OTHER, SELFPAY | PROVIDERS: PCP General Practice; Visit Provider Urology | DX: N36.42 Intrinsic sphincter deficiency (ISD) (principal); N39.3 Stress incontinence (female) (male); N95.2 Postmenopausal atrophic vaginitis; Z98.890 Other specified postprocedural states | CPT/HCPCS: 81003; 99212 ==

== ENCOUNTER 2024-12-21 09:42 | Outpatient (AMB) | payer OTHER, SELFPAY ==
[2024-12-21 09:43] VITALS: BP 100/64; PULSE 72; O2SAT 97; BMI 41.8
--- NOTE | 2024-12-21 09:43 | MHC.OFFVIS ---
Vital Signs 12/21/24 09:43 Height 4 ft 11 in Weight 206 lb 12 oz BMI 41.8 BP 100/64 Blood Pressure Location Rt brachial Position Sitting Pulse 72 Pulse Source Pulse Oximeter Pulse Oximetry (%) 97 Oxygen Delivery Method Room Air Intake Visit Reasons: 6 mth follow up Constipation R/S from 08/28 Intake Note: ESTABLISHED PATIENT for constipation mgmt Chief Complaint; Pt denies any GI sx at this time and reports her current regimen works well for her. Paraprofessional Interpreter Required: No Accompanied by: Self / Same As Patient Allergies oxycodone [From PERCOCET] Allergy (Unknown, Verified 12/21/24 09:45) NAUSEA, DIZZINESS acetaminophen [Percocet] Adverse Reaction (Unknown, Verified 12/21/24 09:45) agitation, hallucinations HPI HPI 6 mth follow up Constipation R/S from 08/28: Details: LAST VISIT: Constipation Hemorrhoid GERD (gastroesophageal reflux disease) Abdominal bloating Plan Continue Linzess in the morning. Will add Dulcolax in the evening. Patient was encouraged to increase fluid intake and activity to promote better bowel motility. Include fiber in her diet. Continue pantoprazole every morning before breakfast. Avoid dietary triggers and late night snacking. Staying upright for minimum 3 hours after meals discussed with patient. Patient will be due to go for colonoscopy in April of 2026, sooner if clinically necessary. Patient has been doing well last lab work reviewed from January of 2024. Normal liver enzymes. Patient will follow-up in the office in 6 months, sooner on as needed basis. Patient is agreeable to this plan and verbalizes understanding of instructions. She was given the opportunity to ask questions and all questions answered. ? Thank you for allowing me to participate in her care Medications New bisacodyl (Dulcolax (bisacodyl)) 10 mg (2 x 5 mg) PO BEDTIME 180 tabs 4RF Refilled pantoprazole take one tablet half an hour before breakfast 40 mg PO DAILY 90 tabs 2RF K21.9 linaclotide (Linzess) 290 mcg PO QAM 90 caps 2RF K59.00 TODAY'S VISIT: Patient is here today for follow-up. Patient reports that since last seen she has been doing well. Takes pantoprazole in the morning and her symptoms of acid reflux are suppressed for the most part. Patient denies eating late at night. Denies dyspepsia, dysphagia or odynophagia. Take Linzess in the morning and occasionally has to take Dulcolax at bedtime. Reports that bowel movements improved. Occasionally feels bloated by for the most part patient is feeling well. Denies melena, hematochezia, unintentional weight loss or ribbon like stools. Due for colonoscopy in April of 2026. Patient denies any GI concerning symptoms today [facility] Medical History COPD (chronic obstructive pulmonary disease) Surgical History History of esophagogastroduodenoscopy (EGD) Hx of colonoscopy Previous section Family History Mother Arteriosclerosis of bypass graft of coronary artery Alzheimer disease Father No problems noted. Social History Household Members: Spouse Housing: Apartment Are you a primary clinical manager home care to a significant other at home: No Do you presently have visiting nurse or other home services: No Alcohol intake: never Patient Tobacco Use Status: Current everyday Tobacco user Tobacco use type: Cigarette Cigarette Packs Per Day: 0.5 Cigarettes Per Day: 10 service: No Current occupational status: employed Current occupation: right handed Review of Systems Const Denies weight gain and Denies weight loss ENT Reports no additional complaints, Denies dysphagia and Denies odynophagia Card Reports no additional complaints Resp Reports no additional complaints GI Denies abdominal pain, Denies belching, Denies melena, Denies bloating, Denies change in bowel habits, Denies dysphagia, Denies excessive flatus, Denies dyspepsia, Denies heartburn, Denies diarrhea, Denies loose stools, Denies nausea, Denies odynophagia and Denies vomiting Musc Reports no additional complaints Neuro Reports no additional complaints Psych Reports no additional complaints Endo Reports no additional complaints Physical Exam Vital Signs: Last Vital Signs Pulse 72 12/21/24 09:43 BP 100/64 12/21/24 09:43 Pulse Ox 97 12/21/24 09:43 Oxygen Delivery Method Room Air 12/21/24 09:43 BMI result Body Mass Index 41.8 Const General: healthy appearing and no acute distress Nutritional Appearance: obese Orientation/consciousness: patient oriented x3 Resp Effort & Inspection: normal respiratory effort, able to speak in complete sentences, no tracheal deviation and symmetric chest movement Auscultation: clear to auscultation bilaterally Cardio Rate: regular rate GI Inspection: Yes normal to inspection, No distended and Yes obesity Palpation (GI): Soft to palpation, not firm, nontender and No hepatosplenomegaly present Auscultation: normal bowel sounds General: Yes no CVA tenderness Back/Spine/Pelvis Back: no CVA tenderness Skin General skin exam: elasticity normal, turgor normal and dry skin Neuro General: patient oriented x3 Psych Appearance: grossly normal Mental Status: mental status grossly normal Assessment & Plan Assessment & Plan (1) Constipation: Code(s): K59.00 - Constipation, unspecified Qualifiers: Constipation type: slow transit constipation Qualified Code(s): K59.01 - Slow transit constipation (2) Hemorrhoid: Code(s): K64.9 - Unspecified hemorrhoids Qualifiers: Hemorrhoid type: unspecified Qualified Code(s): K64.9 - Unspecified hemorrhoids (3) GERD (gastroesophageal reflux disease): Code(s): K21.9 - Gastro-esophageal reflux disease without esophagitis Qualifiers: Esophagitis presence: without esophagitis Qualified Code(s): K21.9 - Gastro-esophageal reflux disease without esophagitis (4) Abdominal bloating: Code(s): R14.0 - Abdominal distension (gaseous) Plan Patient will continue Linzess daily, may use Dulcolax as needed. Increase fluid intake and activity to promote better bowel motility. Patient was encouraged to be more fiber. Continue pantoprazole. Avoid dietary triggers in late night snacking. Patient will be due to go for colonoscopy in April of next year. We should probably fit her for endoscopy as well. Patient will follow-up with our office in 1 year. Patient however was encouraged to call us if she will have any GI concerning symptoms. Patient is agreeable to this plan and verbalizes understanding of instructions. She was given the fluid was additional questions answered. Thank you for allowing me to participate in her care Medications: Refilled bisacodyl (Dulcolax (bisacodyl)) 10 mg (2 x 5 mg) PO BEDTIME 180 tabs 4RF pantoprazole take one tablet half an hour before breakfast 40 mg PO DAILY 90 tabs 2RF K21.9 - Gastro-esophageal reflux disease without esophagitis hydrocortisone 2.5% (Proctosol HC) 1 appl MD BID-QID PRN 30 grams 2RF hemorrhoids K64.9 - Unspecified hemorrhoids linaclotide (Linzess) 290 mcg PO QAM 90 caps 2RF K59.00 - Constipation, unspecified Coding Level of Care Code Est Pt Level 3 (12421) Diagnoses Slow transit constipation K59.01 Constipation type: slow transit constipation Hemorrhoids, unspecified hemorrhoid type K64.9 Hemorrhoid type: unspecified Gastroesophageal reflux disease without esophagitis K21.9 Esophagitis presence: without esophagitis Abdominal bloating R14.0 Time Spent (min) 25 Comment 15 minutes spent with patient and additional 10 minutes spent reviewing her records
--- OUTSIDE RECORDS SUMMARY | 2024-12-21 10:20 | XMS_ITS | Clinical Summary ---
Author Organization [employer] Address [address] [place] [address] [address] [place] [address] Care Team Providers Care Pipefitter Welder Name Role Phone Jennifer Mcconnell MD Primary Care Provider [phone] Allergies Active Allergy Reactions Criticality Noted Date Comments Oxycodone 04/15/2017 Medications guaiFENesin (Mucinex) 600 MG 12 hr tablet Take 1 tablet by mouth every 12 (twelve) hours. 1 Active sodium chloride (Knierim) 0.65 % nasal spray 1-2 spray on each nostril every 2-3 hours as needed for nasal congestion 1 Active hydrocortisone (Anusol-HC) 2.5 % rectal cream 1 APPLICATION RECTALLY 2 TO 4 TIMES A DAY NEEDED FOR HEMORRHOIDS 3 Active Linzess 290 MCG capsule TAKE 1 CAPSULE BY MOUTH EVERY DAY IN THE MORNING 3 Active pantoprazole (ProtoNix) 40 MG EC tablet TAKE ONE TABLET HALF AN HOUR BEFORE BREAKFAST 3 Active GAS RELIEF 125 MG capsule TAKE 1 CAPSULE ORALLY 2 TO 4 TIMES A DAY NEEDED FOR ABDOMINAL DISTENTION 3 Active docusate sodium (Colace) 100 MG capsule TAKE 1 CAPSULE BY MOUTH EVERYDAY AT BEDTIME 3 Active albuterol 108 (90 Base) MCG/ACT inhalerIndicatio ns:COVID-19 Inhale 2 puffs every 6 (six) hours if needed for wheezing. 18 g 3 Active acetaminophen (Tylenol 8 Hour) 650 MG ER tabletIndication s:COVID-19 Take 1 tablet (650 mg) by mouth every 8 (eight) hours if needed for mild pain or headaches (fever). 90 tablet 3 Active Linzess 145 MCG capsuleIndicatio ns:Other constipation Take 145 mcg by mouth in the morning. 3 Active estradiol (Estrace) 0.1 MG/GM vaginal cream Insert 2 g into the vagina Once per day. Insert once per day x 1 week, then twice a week for 3-6 months 42.5 g 3 4 025 Active topiramate (Topamax) 25 MG tablet Take 1 tablet (25 mg) by mouth Once per day. 90 tablet 3 4 Active buPROPion (Wellbutrin) 75 MG tablet Take 1 tablet (75 mg) by mouth 2 times daily. 60 tablet 11 4 025 Active fluticasone (Flonase) 50 MCG/ACT nasal sprayIndications :Tenderness over frontal sinus Administer 1 spray into each nostril Once per day. 16 g 2 5 Active amoxicillin-clav ulanate (Augmentin) 875-125 MG tabletIndication s:Acute otitis media, unspecified otitis media type Take 1 tablet by mouth 2 times daily for 5 days. 10 tablet 5 025 ibuprofen 600 MG tabletIndication s:Acute otitis media, unspecified otitis media type Take 1 tablet (600 mg) by mouth every 6 (six) hours if needed for mild pain for up to 14 days. 42 tablet 5 025 Active Problems Problem Noted Date Diagnosed Date [...] PM EST): Rx Paxlovid x 5 days, [place] interactions module checked, no significant interactions found. [...] Description 11/21/2024 11:20 AM EDT Office Visit [facility] [address] [address] Audrey Youssef NP Acute otitis media, unspecified otitis media type [...] - Tdap) 05/05/2016 05/04/2016, 07/23/2012 COVID-19 Vaccine ( season) 2024 03/02/2021, 02/06/2021 Influenza Vaccine (#1) 2024 2, 06/02/2020, 05/29/2015 Depression Screening 01/26/2025 01/27/2024, 01/27/20 [...] EDT Narrative 03/19/2024 4:25 PM EDT ? [facility] [place] ? [address] ?[place] [address] ? Mammography Report ? Signed ? Patient: Lindsey,Wanda ?MR#: [id number] ?? [id number] ? : 1970 ?Acct:[id number] ? Age/Sex: 53 / F ?ADM Date: 02/19/ ? Loc: HO.MAMMO ? Attending Dr: Jennifer Mcconnell MD ? Ordering Physician: Jennifer Mcconnell ?Results: 1Negative ? Date of Service: 02/19/24 ?Follow Up: 1 Year From Orig ?? inal Mammogram ? Procedure(s): MM tomosynthesis screening BI ?? Accession Number(s): [id number] ? cc: Jennifer Mcconnell ? EXAMINATION: ?? [...] 1622 ? DD/ 1225 ? TD/TT: ? Stoker Mechanic: ? Procedure Note Sophia, Image - 03/19/2024 [facility] [address] [place], [place] [address] Mammography Report Signed Patient: Maurice Lindsey#: [id number] : 1970Acct:[id number] Age/Sex: 53 / FADM Date: 02/20/24 Loc: RUDY Attending Dr: Jennifer Mcconnell MD Ordering Physician: Jayesh,SophiaResults: 1Negative Date of Service: 02/20/24Follow Up: 1 Year From Orig ina Mammogram Procedure(s): MM tomosynthesis screening BI Accession Number(s): [id number] cc: Jennifer Mcconnell EXAMINATION: MM SCREENING DIGITAL BREAST TOMOSYNTHESIS, BILATERAL CLINICAL INFORMATION: Screening. Asymptomatic. COMPARISON: Mammography: This study is compared with prior exams dating back to 2013. TECHNIQUE: Digital breast tomosynthesis is performed in [...] in OV> 03/19/24 1622 DD/ 1225 TD/TT: Stoker Mechanic: Jennifer Mcconnell MD IMG BI PROCEDURES Final Result * (ABNORMAL) Lipid Panel, Standard (01/27/2024 3:34 PM EDT) Triglycerides 115 <150 mg/dL [facility] Comment:Desirable Triglyceri de: less than 150 mg/dLBorderline High Triglyceride 150-199 mg/dLHigh Triglyceride: 200-499 mg/dLVery High Triglyceride: greater than or equal to 5OO mg/dL Cholesterol 145 <200 mg/dL [facility] Comment:Desirable Cholestero l: less than 200 mg/dLBorderline High Cholesterol: 200-239 mg/dLHigh Cholesterol: greater than 239 mg/dL LDL Cholesterol Calculated 85 <100 mg/dL [facility] Comment:Desirable LDL: less than 100 mg/dLNear Optimal/Above Optimal LDL: 110- 129 mg/dLBorderline High LDL: 130-159 mg/dLHigh LDL: 160-189 mg/dLVery High LDL: greater than or equal to 190 mg/dL HDL Cholesterol 37(L) >40 mg/dL [facility] Comment:Desirable HDL: great er than 40 mg/dL Note: This HDL assay may give artificially low results in patients with liver disease. Blood Venous blood specimen / Unknown 01/27/2024 3:34 PM EDT 01/27/2024 6:02 PM EDT Jennifer Mcconnell MD LAB BLOOD ORDERABLES Final Res ult [facility] [address] [place] [phone] * Hm Colonoscopy (04/29/2023) Colonoscopy Normal Normal Jennifer Mcconnell MD HEALTH MAINTENANCE Final Resul t * Thinprep TIS PAP And HPV mRNA E6/E7 With Reflex To HPV 16,18/45 (11/01/2022 10:16 AM EST) Clinical Information: 52 YO, NO ABN PER PT [facility] LMP: [facility] Prev. PAP: NONE GIVEN [facility] Prev. BX: NONE GIVEN [facility] SOURCE: None given [facility] Statement Of Adequacy: [facility] Comment: Satisfactory for evaluation. Endocervical/transformation zone component absent. Interpretation/ Result: Negative for intraepithelial lesion or malignancy. [facility] Infection Trichomonas vaginalis identified. [facility] COMMENT: This Pap test has been evaluated with computer assisted technology. [facility] Cytotechnologis t: [facility] Comment: GSG, CT(ASCP) CT screening location: [address] ??[address] PATHOLOGIST: Leonard mendez [facility], [facility] Comment: Ariel Montgomery MD, PhD, Board Certified in Anatomic and Clinical Pathology (electronic signature) Consulting Pathologist [facility] [address] [place] [address] (Always Message) [facility], [facility] Comment: EXPLANATORY NOTE: The Pap [...] HPV nRNA E6/E7 Not Detected Not Detected [employer] Comment: Methodology: Mold Technician-Mediated Amplification This assay detects E6/E7 viral messenger RNA (mRNA) from 14 high-risk HPV types (16,18,31,33,35,39,45,51,52,56,58,59,66,68). Cervical sources are required for HPV testing. If a vaginal source from a patient who has had a total hysterectomy with removal of cervix was submitted, please contact the testing laboratory for alternative testing options. For additional information, please refer to http://education.SyMynd/faq/DRB104e5 (This link if provided for information/ educational purposes only.) 11/01/2022 10:1 6 AM EST 11/02/2022 8:35 AM EST Narrative [facility] - 11/04/2022 2:56 PM EST FASTING: UNKNOWN us Jennifer Mcconnell MD LAB PATHOLOGY ORDERABLES Final Result [address], [place] [address] [facility] [address] [place] [address] [employer] [address] [place] [address], (Nl2) [place] [address] from Last 3 Months or Most Recently Relevant to Health Maintenance Insurance [facility] Care Teams Pipefitter Welder Relationship Specialty Start Date End Date Jennifer Mcconnell MD [address] [place] [id number] PCP - General Family Medicine 06/25/22
--- OUTSIDE RECORDS SUMMARY | 2024-12-21 10:20 | XMS_ITS | Encounter Summary ---
Author Organization [employer] Address [address] [facility] [address] [place] [address] Care Team Providers Care Supervisor Research Kennel Name Role Phone Jennifer Mcconnell MD Primary Care Provider [phone] Reason for Referral * Imaging (Routine) - Closed Specialty Diagnoses / Procedures Referred By Contac t Referred To Contact Diagnoses Pelvic pain Procedures US Pelvis Transvaginal Jennifer Mcconnell MD [address] [place] [address] Phone: tel: fax: [facility] Scan [address] [place], [place] Phone: tel: fax: Referral ID Status Reason Start Date Expiration Date Visits Re quested Visits Authorized [id number] Closed 10/01/2022 03/30/2023 1 1 Encounter Details Date Type Department Care Team (Late st Contact Info) Description 10/01/2022 Orders Only [facility] [address] [place], [place] [phone] Jennifer Mcconnell MD [address] [place], [place] [phone] Pelvic pain (Primary Dx) Social History Tobacco [...] EST Narrative 10/21/2022 11:56 PM EST ? [facility] ?[address] ?[place] [address] ? Ultrasound Report ? Signed ? Patient: Lindsey,Wanda ?MR#: [id number] ?? [id number] ? : 1970 ?Acct:[id number] ? Age/Sex: 52 / F ?ADM Date: 10/19/22 ? Loc: HO.US ? Attending Dr: Jennifer Mcconnell MD ? Ordering Physician: Jennifer Mcconnell ?? Date of Service: 10/19/22 ?? Procedure(s): US pelvic and transvaginal ?? Accession Number(s): [id number] ? cc: Jennifer Mcconnell ? EXAMINATION: ? [...] 10/21/223 ? DD/ 1429 ? TD/TT: ? Milling Supervisor: SS ? Procedure Note Donotuseinterpreter, Image - 10/21/[address] [address] Ultrasound Report Signed Patient: Maurice Lindsey#: [id number] : 1970Acct:[id number] Age/Sex: 52 / FADM Date: 10/19/22 Loc: .US Attending Dr: Jennifer Mcconnell MD Ordering Physician: Jennifer Mcconnell Date of Service: 10/19/22 Procedure(s): US pelvic and transvaginal Accession Number(s): [id number] cc: Jennifer Mcconnell EXAMINATION: US PELVIS CLINICAL [...] Valdivia MD Signed By: <Electronically signed by Gene Valdivia MD in OV> 10/21/22 2353 DD/ 1429 TD/TT: Milling Supervisor: SS [facility] External Provider IMG US PROCEDURES Edited Result - Final * BI Mammogram Screening Tomosynthesis Bilateral (10/19/2022 12:15 PM EST) Anatomical Region Laterality Modality Breast Bilateral Mammography 10/19/2022 12:1 5 PM EST Narrative 10/21/2022 8:27 AM EST ? [facility] ?[address] ?[place], [place] [address] ? Mammography Report ? Signed ? Patient: Lindsey,Wanda ?MR#: [id number] ?? [id number] ? : 1970 ?Acct:[id number] ? Age/Sex: 52 / F ?ADM Date: 10/19/22 ? Loc: HO.US ? Attending Dr: Jennifer Mcconnell MD ? Ordering Physician: Jennifer Mcconnell ?Results: 1Negative ? Date of Service: 10/19/22 ?Follow Up: 1 Year From Orig ?? inal Mammogram ? Procedure(s): MM tomosynthesis screening BI ?? Accession Number(s): [id number] ? cc: Jennifer Mcconnell ? EXAMINATION: ?? [...] 0824 ? DD/ 1215 ? TD/TT: ? Milling Supervisor: HORAN ? Procedure Note Sophia, Tereso - 10/21/[address] [address] Mammography Report Signed Patient: Maurice Lindsey#: [id number] [id number] : 1970Acct:[id number] Age/Sex: 52 / FADM Date: 10/19/22 Loc: HO. Attending Dr: Jennifer Mcconnell MD Ordering Physician: Michelle Mcconnellults: 1Negative Date of Service: 10/19/22Follow Up: 1 Year From Orig inal Mammogram Procedure(s): tomosynthesis screening BI Accession Number(s): [id number] cc: Jennifer Mcconnell EXAMINATION: MM SCREENING DIGITAL [...] in OV> 10/21/22 0824 DD/ 1215 TD/TT: Milling Supervisor: HORAN [facility] External Provider IMG BI PROCEDURES Edited Result - Final * Tissue Transglutaminase Antibody, IgA (10/19/2022 11:14 AM EST) Transglutaminase IgA <1.0 U/mL [facility] Comment:Value Interpretation ----- <15.0 Antibody not detected> or = 15.0 Antibody detectedTHIS TEST WAS PERFORMED AT:[facility] [place] [id number] MYERS MD 10/19/2022 11:1 4 AM EST 10/19/2022 11:14 AM EST [facility] External Provider LAB BLO OD ORDERABLES Final Result [facility] [address] [place] [address] [phone] * Tissue Transglutaminase (tTG) Antibody (IgG) (10/19/2022 11:14 AM EST) Tissue Transglutaminase Antibody IgG <1.0 U/mL [facility] Comment:Value Interpretation ----- <15.0 Antibody not detected> or = 15.0 Antibody detectedTHIS TEST WAS PERFORMED AT:[facility] [place] [id number] MYERS MD 10/19/2022 11:1 4 AM EST 10/19/2022 11:14 AM EST [facility] External Provider LAB BLO OD ORDERABLES Final Result Performing Organization Address [facility] Phone Number [facility] [address] [place] [phone] * Hemoglobin A1c (10/19/2022 11:14 AM EST) Hemoglobin A1c 4.9 % [facility] Comment:Hemoglobin A1C Refer ence Range Adults: 4.8 - 6.0 % Non diabetic: < 6.0 % Goal: < 7.0 %Additional Action Suggested: > 8.0 %Note: Hemoglobin A1c results are invalid for patients with abnormal amounts of HbF. Blood transfusions may impact the HbA1c concentration in the patient sample. Estimated Average Glucose 94 mg/dL [facility] Comment:eAG = Estimated ave rage glucose which is %A1C expressed asaverage glucose, using the formula of the T0A-RbsdqchUoxodcc Glucose study (ADAG), Diabetes Care, Vol.31,#8,Apr. 2007 10/19/2022 11:1 4 AM EST 10/19/2022 11:14 AM EST [facility] External Provider LAB BLO OD ORDERABLES Final Result Performing Organization Address [facility] Phone Number [facility] [address] [place] [address] [phone] * TSH W/Reflex to FT4 (10/19/2022 11:14 AM EST) TSH reflex Free T4 1.81 0.32 - 4.0 uIU/mL [facility] 10/19/2022 11:1 4 AM EST 10/19/2022 11:14 AM EST [facility] External Provider LAB BLO OD ORDERABLES Final Result Performing Organization Address [facility] Co de Phone Number [facility] [address] [place] [phone] * Vitamin B12/Folate, Serum Panel (10/19/2022 11:14 AM EST) Pathologist [facility] Vitamin B12 336 200 - 900 pg/mL [facility] Comment:NORMAL 200-900 PG/M L INDETERMINATE 160-199 PG/ML DEFICIENT < 160 PG/ML Folate 9.3 > or = 4.0 ng/mL [facility] Comment:Reference Values:> o r = 4.0 ng/mL< 4.0 ng/mL suggests folate deficiency Methotrexate, aminopterin and folinic acid(leucovorin) are chemotherapeutic agents whose molecularstructures are similar to folate; therefore, the Architectfolate assay cannot be used for patients using these drugs. 10/19/2022 11:1 4 AM EST 10/19/2022 11:14 AM EST [facility] External Provider LAB BLO OD ORDERABLES Final Result Performing Organization Address [facility] Co de Phone Number [facility] [address] [place] [phone] * Lipase (10/19/2022 11:14 AM EST) Lipase 11 8 - 78 U/L [facility] 10/19/2022 11:1 4 AM EST 10/19/2022 11:14 AM EST [facility] External Provider LAB BLO OD ORDERABLES Final Result [facility] [address] [place] [address] [phone] documented in this encounter Visit Diagnoses Diagnosis Pelvic pain- Primary documented in this encounter Additional Health Concerns Assessment Noted Time PHQ-9 Depression Total Score: 5 09/24/19 23 11:00 AM EST documented as of this encounter Care Teams Supervisor Research Kennel Relationship Specialty Start Date End Date Jennifer Mcconnell MD [address] [place] [phone] PCP - General Family Medicine 06/25/22 documented as of this encounter
--- OUTSIDE RECORDS SUMMARY | 2024-12-21 10:20 | XMS_ITS | Encounter Summary ---
Author Organization [employer] Address [address] [facility] [address] [place] [address] Care Team Providers Care Bilingual Medical Assistant Name Role Phone Jennifer Mcconnell MD Primary Care Provider [phone] Reason for Visit * Reason Comments Med Refill Encounter Details Date Type Department Care Team (Late st Contact Info) Description 06/10/2024 Refill [facility] [address] [place] [address] Jennifer Mcconnell MD [address] [place] [address] Social History Tobacco Use Types Packs/Day Years [...] documented as of this encounter Care Teams Bilingual Medical Assistant Relationship Specialty Start Date End Date Jennifer Mcconnell MD [address] [place] [address] PCP - General Family Medicine 06/25/22 documented as of this encounter
== END 2024-12-21 10:08 | disposition home or self-care (01) ==
LOC: HO.HGI 09:42
PROVIDERS: PCP General Practice; Visit Provider Nurse Practitioner Family
DX: K59.01 Slow transit constipation (principal); K64.9 Unspecified hemorrhoids; K21.9 Gastro-esophageal reflux disease without esophagitis; R14.0 Abdominal distension (gaseous)
CPT/HCPCS: 99213

== ENCOUNTER → 2024-12-21 09:42 | Outpatient (BNVA) | payer OTHER, SELFPAY | PROVIDERS: PCP General Practice; Visit Provider Nurse Practitioner Family | DX: K59.01 Slow transit constipation (principal); K64.9 Unspecified hemorrhoids; K21.9 Gastro-esophageal reflux disease without esophagitis; R14.0 Abdominal distension (gaseous) | CPT/HCPCS: 99212 ==